=== PATIENT | male | born 1970 | race Caucasian/White ===

== ENCOUNTER 2018-06-08 15:56 | Outpatient (CLI) | payer BC, SELFPAY ==
[2018-06-08 16:30] LABS: COMMENT (LAB VIEW ONLY) 175.08 mg/dL; Microalb ug/mg Crea 6.7 ug/mg Cr
[2018-06-08 17:11] LABS: CREATININE 1.12 mg/dL (0.70-1.30); Potassium 4.1 mmol/L (3.5-5.1); TSH 1.64 uIU/mL (0.358-3.74)
== END 2018-06-08 16:16 ==
PROVIDERS: PCP Internal Medicine; Visit Provider General Practice
DX: E10.9 Type 1 diabetes mellitus without complications (principal); E03.9 Hypothyroidism, unspecified
CPT/HCPCS: 36415; 82043; 82565; 82570; 83036; 84132; 84443

== ENCOUNTER 2019-11-04 01:13 | Outpatient (CLI) | payer BC, SELFPAY ==
[2019-11-04 15:02] LABS: HCT 44.2 % (40.0-50.0); HGB 15.1 g/dL (13.5-17.5); Mean Corp. HGB Concentration 34.2 g/dL (32.0-36.0); Mean Corpuscular Hemoglobin 31.2 pg (27.0-33.0); Mean Corpuscular Volume 91.3 fL (80-95); Mean Platelet Volume 10.2 fL (8.0-11.0); Platelet Count 318 x1000/uL (130-400); RBC 4.84 m/cumm (4.50-6.00); RBC Distribution Width 13.5 % (11.8-14.1); White Blood Cell Count 6.54 k/cumm (4.4-10.8)
[2019-11-04 15:29] LABS: Calculated LDL 159 mg/dL (<100); Cholesterol 217 mg/dL (<200); HDL Cholesterol 49 mg/dL (40-60); TSH 5.07 uIU/mL (0.36-3.74); Triglyceride 48 mg/dL (<150)
== END 2019-11-04 01:33 ==
PROVIDERS: PCP Nurse Practitioner; Visit Provider Nurse Practitioner
DX: E03.9 Hypothyroidism, unspecified (principal); E10.9 Type 1 diabetes mellitus without complications; D72.829 Elevated white blood cell count, unspecified; Z13.6 Encounter for screening for cardiovascular disorders
CPT/HCPCS: 36415; 80061; 85027; 83036; 84443

== ENCOUNTER 2019-12-20 02:09 | Outpatient (CLI) | payer BC, SELFPAY ==
[2019-12-20 14:07] LABS: TSH 0.85 uIU/mL (0.36-3.74)
== END 2019-12-20 02:29 ==
PROVIDERS: PCP Nurse Practitioner; Visit Provider Nurse Practitioner
DX: E03.9 Hypothyroidism, unspecified (principal)
CPT/HCPCS: 36415; 84443

== ENCOUNTER 2020-02-24 13:54 | Outpatient (REF) | payer BC, SELFPAY ==
[2020-02-24 14:49] LABS: Hemoglobin A1C 7.6 % (3.8-5.6)
[2020-02-24 15:38] LABS: Calculated LDL 121 mg/dL (<100); Cholesterol 179 mg/dL (<200); HDL Cholesterol 35 mg/dL (40-60); TSH 2.06 uIU/mL (0.36-3.74); Triglyceride 119 mg/dL (<150)
== END 2020-02-24 14:14 ==
LOC: LBN 13:54
PROVIDERS: PCP Nurse Practitioner; Visit Provider Nurse Practitioner
DX: E03.9 Hypothyroidism, unspecified (principal); E78.5 Hyperlipidemia, unspecified; E10.9 Type 1 diabetes mellitus without complications
CPT/HCPCS: 80061; 83036; 84443

== ENCOUNTER 2020-03-25 08:03 | Inpatient (IN) | payer BC, SELFPAY ==
[2020-03-25] VITALS (89 sets, daily range): BP systolic 112–139; BP diastolic 57–79; PULSE 78–113; RESP 12–21; TEMP 36.2–37.4; O2SAT 95–100
--- NOTE | 2020-03-25 08:15 | DI.CT_ITS ---
EXAM: CT BRAIN CTA CLINICAL HISTORY: headache. TECHNIQUE: Imaging Protocol: Axial CT angiography was performed with multi-slice acquisition and mu lti-planar and/or 3D reconstructions. CONTRAST MATERIAL: Intravenous: Omnipaque 350 Contrast volume:85 mL COMPARISON: CT HEAD WITHOUT CONTRAST from 04/09/2014 FINDINGS: CT Head W/O: Ventricles and Extra axial spaces: Normal in size and morphology for the patient's age. Hemorrhage: None. Cerebral parenchyma: Normal. Midline shift: None. Brainstem/Cerebellum: Normal. Calvarium: Normal. Visualized Paranasal sinuses/Mastoids: There is again seen a mucous retention cyst or polyp in the ri ght in a right ethmoid air cell. There is a small mucous retention cyst or polyp in the right maxill theodore sinus. The remaining visualized paranasal sinuses are clear. Soft Tissues: Unremarkable. CTA Brain W: Internal Carotid Arteries: Petrous: Normal. Cavernous: Normal. Cerebral: Normal. Anterior Cerebral Arteries: Right: No aneurysm, occlusion or significant stenosis. Left: No aneurysm, occlusion or significant stenosis. Middle Cerebral Arteries: Right: No aneurysm, occlusion or significant stenosis. Left: No aneurysm, occlusion or significant stenosis. Posterior cerebral Arteries: Right: No aneurysm, occlusion or significant stenosis. Left: No aneurysm, occlusion or significant stenosis. Vertebral Arteries: Right: No aneurysm, occlusion or significant stenosis. Left: No aneurysm, occlusion or significant stenosis. Basilar Artery: No aneurysm, occlusion or significant stenosis. IMPRESSION: 1. Normal CTA examination of the [place]. 2. No acute intracranial process. RADIATION DOSE DELIVERED: 1,148.64mGy.cm Total DLP DATA REPOSITORY: All CT scans at this facility are submitted to the National Radiology Data Registry (NRDR) Dose Index Registry (DIR) with the [employer] (ACR). RADIATION OPTIMIZATION: All CT scans at this facility use at least one of these dose optimization te chniques: automated exposure control; mA and/or kV adjustment per patient size (includes targeted exa ms where dose is matched to clinical indication); or iterative reconstruction.
--- NOTE | 2020-03-25 08:20 | ED.GENADUL_ITS ---
Discharge Plan Disposition Patient Disposition: [facility] INPATIENT Condition: Critical Discharge Details Clinical Impression: DKA (diabetic ketoacidoses), Nausea & vomiting, Dehydration, Headache Primary Care Provider: Roya Kwong ED Provider: Ronn Xavier Home Meds and New Rx's Prescriptions: No Action atorvastatin 40 mg tablet 40 mg PO DAILY Qty: 90 RF: 3 lisinopril 5 mg tablet 2.5 mg PO DAILY Qty: 90 RF: 3 Lantus Solostar U-100 Insulin 100 unit/mL (3 mL) insulin pen 26 unit SC DAILY Qty: 15 RF: 0 levothyroxine 200 mcg capsule 200 mcg PO DAILY Qty: 60 RF: 0 insulin lispro [Humalog KwikPen Insulin] 100 unit/mL insulin pen 5 unit SC TID Qty: 15 RF: 5 Glucagon Emergency Kit (human) 1 MG kit 1 mg IJ DIRECTED Qty: 1 RF: 0 (DME) urine glucose-ketones test [Keto-Diastix] 1 EACH strip 1 ea Miscellaneous DIRECTED Qty: 50 RF: 0 Medical Decision Making 50 yo male with hx of t1dm, hld, who comes in with n/v and headache since yesterday. Denies any fevers, chills, trauma, chest pain/pressure, dyspnea, and no abdominal pain. He denies recent travel. He could not keep any liquids down this morning or overnight so came here for an evaluation. He arrives appearing dehydrated, perrl, eomi, CN II-XII intact, clear speech with no focal motor or sensation deficits. Soft nontender abdomen, no distention. No meningismus, full rom of the neck. Given his hx of t1dm could be in dka and poc glucose here is over 400, will obtain vbg and urinalysis. He has no findings on history or exam to suggest molder trimmer infection. I suspect his headache could be from dehydration but given he doesn't get headaches frequently will obtain ct and cta to evaluate for ich and aneurysm labs show metabolic acidosis with ph of 7.12, does have a wbc of 22 which could be stress response as he presented similarly in 2014 when he had dka and had a leukocytosis that resolved. K is 6.0 and does have increased creatinine from baseline. Will start insulin drip, no icu beds available here at the moment, nurse carpentry supervisor is trying to establish if one will be available later if not will need to transfer. I did discuss with the pt about risks and benefits of an LP and given he feels much better and headache is all but gone he declines to have an LP which I feel is reasonable given negative ct imaging and no meningismus or infectious symptoms. He has capacity to make his own decisions. Will continue to rehydrate while disposition is established. pt remains hd stable, spoke with Dr. Carter who accepts for admission to the icu Differential Diagnosis Differential Diagnosis: dehydration, dka, aneurysm, ich Medical Records Medical records reviewed: Yes I reviewed the patient's medical records. Imaging Data Radiologic Study: Attestation: I personally reviewed and interpreted this imaging study as follows: Imaging: CT Scan Radiologist's impression: Paranasal sinuses: Right maxillary and right ethmoid cyst versus polyp. Bones/joints: Unremarkable. No acute fracture. Soft tissues: Unremarkable. IMPRESSION: 1. No large vessel stenosis or occlusion. 2. Right maxillary ethmoid sinus findings as above. Lab Data Lab results reviewed: Yes I reviewed the patient's lab results. ECG Data Attestation: I personally reviewed and interpreted this ECG (s) as follows: Prior ECG tracings: not available for review Interpretation: sinus rhythm, rate of 93, pr 165, qtc 448 HPI General Mode of arrival: ambulatory . Date/Time Provider Initiated Documentation: 03/25/20 08:05 . Limitations to Documentation: no limitations . Information obtained by: patient . History of Present Illness 50 year old M presents to the emergency department with the chief complaint of vomit, described as moderate, and it has been intermittent. No relieving factors improve symptom(s), No exacerbating factors reported . Patient did receive the following treatments prior to arrival, none Related Data Home Medications Medication Instructions Recorded Confirmed Glucagon Emergency Kit (human) 1 mg IJ DIRECTED #1 kit 09/16/14 03/25/20 urine glucose-ketones test #50 strip 09/16/14 02/24/20 [Keto-Diastix] atorvastatin 40 mg tablet 40 mg PO DAILY #90 tab 10/22/19 03/25/20 lisinopril 5 mg tablet 2.5 mg PO DAILY #90 tab 10/22/19 03/25/20 insulin glargine 100 unit/mL (3 26 unit SC DAILY #15 ml 10/29/19 03/25/20 mL) subcutaneous pen levothyroxine 200 mcg capsule 200 mcg PO DAILY #60 cap 01/25/20 03/25/20 insulin lispro 100 unit/mL 5 unit SC TID #15 ml 02/15/20 03/25/20 subcutaneous pen Previous Rx's Medication Instructions Recorded Glucagon Emergency Kit (human) 1 mg IJ DIRECTED #1 kit 09/16/14 urine glucose-ketones test #50 strip 09/16/14 [Keto-Diastix] atorvastatin 40 mg tablet 40 mg PO DAILY #90 tab 10/22/19 lisinopril 5 mg tablet 2.5 mg PO DAILY #90 tab 10/22/19 insulin glargine 100 unit/mL (3 26 unit SC DAILY #15 ml 10/29/19 mL) subcutaneous pen levothyroxine 200 mcg capsule 200 mcg PO DAILY #60 cap 01/25/20 insulin lispro 100 unit/mL 5 unit SC TID #15 ml 02/15/20 subcutaneous pen Allergies Allergy/AdvReac Type Severity Reaction Status Date / Time No Known Allergies Allergy Verified 03/25/20 08:15 General Stated Complaint: Nausea/Vomit/Diar ALBAN: 3 Review of Systems All systems reviewed & are unremarkable except as noted in HPI and below Constitutional Constitutional: Denies chills, Denies fever(s) and Denies weakness Cardiovascular Cardiovascular: Denies chest pain and Denies dyspnea Respiratory Respiratory: Denies cough and Denies dyspnea Gastrointestinal Gastrointestinal: Denies abdominal pain Musculoskeletal Musculoskeletal: Denies joint swelling Neurologic Neurologic: Denies weakness [facility] Medical History (Updated 03/25/20 @ 10:01 by Ronn Xavier MD) Diabetic ketoacidosis, type I (09/14/14) HLD (hyperlipidemia) Leukocytosis (09/14/14) Multiple nevi CYNTHIA (obstructive sleep apnea) hasn't been a problem since he lost weight PDR (proliferative diabetic retinopathy) procedure around 1995 for repair Type 1 diabetes Family History (Updated 02/24/20 @ 16:40 by Yoly Mcmullen) Mother Depression Father No problems noted. Sister No problems noted. Son No problems noted. Son No problems noted. Daughter No problems noted. Maternal Grandfather , 80's No problems noted. Paternal Grandfather , 92 No problems noted. Maternal Grandmother , 80's No problems noted. Paternal Grandmother , 60's No problems noted. Social History (Updated 09/13/19 @ 13:38 by Gurvinder Cleaning) Smoking/Tobacco Use Status: Never Alcohol Intake: never Drug use: Never Caregiver/Support person: No Household members: spouse and children Housing: house Communication Needs: None Do you need help understanding health information?: Rarely Pets and animals: Yes Pets and animals: cat(s) Sexually active: Yes Do you think of yourself as: straight/heterosexual Current gender identity: male What is your relationship status?: How often do you talk on the phone with friends or family?: never How often do you get together with friends or relatives?: once per week How often do you attend roman catholic or shinto services?: 4 or more times per year Do you belong to any clubs or organized social groups?: no Panel score (0-1 are the most socially isolated patients): 2 What type of physical activity do you participate in: walking Duration: 15-30 minutes/day Frequency: 1-2 times per week Samia/Methodist: Zoroastrianism Special samia needs: No Seatbelt use: always Drive intox or ride w/intox courtesy bus driver: No Exam Const General: no acute distress Orientation: alert HENMT Head: normal to inspection Ears: external ears normal General nose exam: external nose normal Mouth: other (dry muscous membranes) Eyes General: appearance normal, both eyes and all related structures Neck Neck: normal visual inspection Resp Effort & Inspection: normal respiratory effort and able to speak in complete sentences Cardio Rate: tachycardic Skin General skin exam: no rashes or lesions noted Neuro General: patient alert and patient oriented x3 Extrem General: normal to inspection Psych Mental Status: mental status grossly normal Course Vital Signs Vital signs: Vital Signs Temperature 36.2 C L 03/25/20 08:11 Pulse 113 H 03/25/20 08:11 Respiratory Rate 16 03/25/20 08:11 Blood Pressure 125/78 03/25/20 08:11 Pulse Oximetry 97 03/25/20 08:11 Temperature 36.2 C L 03/25/20 08:11 Temperature Source Skin 03/25/20 08:11 Pulse 113 H 03/25/20 08:11 Respiratory Rate 16 03/25/20 08:11 Respiratory Effort Non-Labored 03/25/20 08:11 Blood Pressure 125/78 03/25/20 08:11 Blood Pressure Position Sitting 03/25/20 08:11 Pulse Oximetry 97 03/25/20 08:11 Pain Level 8 03/25/20 08:11 Critical Care Time Critical Care Time Critical Care Time: Yes Total Critical Care Time: 60 (minutes) Attestation: time spent initiating insulin drip, frequent reassessments, lab review in patient with DKA and potential to deteriorate at any time
[2020-03-25] MEDS: Normal Saline 1,000 ML 1000 ML IV (08:35)
[2020-03-25] MEDS: Ondansetron 4 MG/2 ML VIAL IVP (08:35)
[2020-03-25 08:40] LABS: HCO3 (Venous) 9 mmol/L (23-28); O2 Sat (Venous) 74 %; TCO2 (Venous) 8 mmol/L (24-29); pCO2 (Venous) 28 mmHg (41-51); pO2 (Venous) 43 mmHg
[2020-03-25] MEDS: Normal Saline Flush 10 ML SYR IVP ×2 (08:40→08:54)
[2020-03-25 08:41] LABS: Abs Immature Grans 0.13 10^3/uL (0.0-0.06); Absolute Lymphocyte Count 1.16 10^3/uL (1.2-3.4); Basophils % 0.2; HCT 51.1 % (40.0-50.0); HGB 16.8 g/dL (13.5-17.5); Immature Grans % 0.6; Lymphocytes % 5.1; MCH 30.2 pg (27.0-33.0); MCHC 32.9 % (32.0-36.0); MCV 91.9 fL (80-95); Monocytes % 5.8; Neutrophils % 88.3; Nucleated RBC 0 %; Platelet Count 390 10^3/uL (130-400); RBC 5.56 10^6/uL (4.36-5.78); RDW 13.1 % (11.8-14.1); RDW-SD 44.9 fL; WBC 22.72 10^3/uL (4.4-10.8)
[2020-03-25 08:44] LABS: Lactate 2.1 mmol/L (0.6-1.4); pH (Venous) 7.12 (7.31-7.41)
[2020-03-25 08:45] LABS: Absolute Basophil Count 0.05 10^3/uL (0.0-0.2); Absolute Monocyte Count 1.32 10^3/uL (0.1-0.8); Absolute Neutrophil Count 20.06 10^3/uL (1.2-6.7)
[2020-03-25] MEDS: Omnipaque 350 MG/ML 100 ML BTL IJ (08:52)
[2020-03-25] MEDS: Normal Saline - Diluent 50 ML VIAL IV (08:54)
[2020-03-25 09:09] LABS: Diff Comment Diff Reviewed; RBC Morphology Normal
--- NOTE | 2020-03-25 09:15 | RT.EKG_ITS ---
APPROVED REPORT Exam: Resting ECG Patient Location: E HR:93 bpm ECG Measurements Heart Rate 93 AXIS OR 165 P 41 QRSd 99 QRS -12 QT 361 T 28 QTc 448 Conclusion Sinus rhythm...normal P axis, V-rate 60- 99
[2020-03-25 09:19] LABS: ALT 33 U/L (16-63); AST 15 U/L (15-37); Albumin 4.3 g/dL (3.4-5.0); Alkaline Phosphatase 75 U/L (46-116); Anion Gap 24.7 mmol/L (3-11); BUN 33 mg/dL (7-18); Bilirubin, Total 0.7 mg/dL (0.2-1.0); CO2 11.3 mmol/L (21.0-32.0); CREATININE 2.13 mg/dL (0.70-1.30); Calcium 10.1 mg/dL (8.5-10.1); Chloride 97 mmol/L (98-107); Estimated GFR 33.05 (mL/min/1.73m2); Glucose 427 mg/dL (74-106); Lipase 230 U/L (73-393); Magnesium 2.4 mg/dL (1.8-2.4); Sodium 133 mmol/L (136-145); TSH (W/Ref FT4) 0.79 uIU/mL (0.36-3.74); Total Protein 8.5 g/dL (6.4-8.2)
--- NOTE | 2020-03-25 09:21 | DI.VRAD_ITS ---
PROCEDURE INFORMATION: Exam: CT Angiography Head With Contrast Exam date and time: 03/25/2020 8:20 AM Age: 50 years old Clinical indication: Other: Headache TECHNIQUE: Imaging protocol: Computed tomography angiography of the head with intravenous contrast. 3D rendering (Not supervised by radiologist): MIP and/or 3D reconstructed images were created by the technologist. Contrast material: OMNI 350; Contrast volume: 85 ml; Contrast route: INTRAVENOUS (IV); COMPARISON: CT HEAD WITHOUT CONTRAST 04/09/2014 1:58 AM FINDINGS: ANTERIOR CIRCULATION: Right internal carotid artery: Unremarkable. Intracranial segment is patent with no significant stenosis. No aneurysm. Right middle cerebral artery: Unremarkable. No occlusion or significant stenosis. No aneurysm. Right anterior cerebral artery: Unremarkable. No occlusion or significant stenosis. No aneurysm. Left internal carotid artery: Unremarkable. Intracranial segment is patent with no significant stenosis. No aneurysm. Left middle cerebral artery: Unremarkable. No occlusion or significant stenosis. No aneurysm. Left anterior cerebral artery: Unremarkable. No occlusion or significant stenosis. No aneurysm. POSTERIOR CIRCULATION: Right vertebral artery: Unremarkable. No occlusion or significant stenosis. No aneurysm. Left vertebral artery: Unremarkable. No occlusion or significant stenosis. No aneurysm. Basilar artery: Unremarkable. No occlusion or significant stenosis. No aneurysm. Right posterior cerebral artery: Unremarkable. No occlusion or significant stenosis. No aneurysm. Left posterior cerebral artery: Unremarkable. No occlusion or significant stenosis. No aneurysm. Brain: No definite mass, mass effect, or midline shift. Cerebral ventricles: Normal. No ventriculomegaly. Paranasal sinuses: Right maxillary and right ethmoid cyst versus polyp. Bones/joints: Unremarkable. No acute fracture. Soft tissues: Unremarkable. IMPRESSION: 1. No large vessel stenosis or occlusion. 2. Right maxillary ethmoid sinus findings as above. Dictated and Authenticated by: Richmond England MD. Ordering:BRAD Brody MD
[2020-03-25 09:37] LABS: Bilirubin Small (Negative); Blood Trace-lysed (Negative); Clarity Clear (Clear); Glucose 500 mg/dL (Negative); Ketones >=160 mg/dL (Negative); Leukocyte Esterase Negative (Negative); Nitrite Negative (Negative); Specific Gravity >= 1.030 (1.005-1.025); Urobilinogen 0.2 EU/dL (Up TO 0.2); pH 5.5 (5-8)
[2020-03-25 10:08] LABS: Bacteria Negative HPF (Negative); C & S Indicated? No; Casts Negative LPF (Negative); Crystals Negative HPF (Negative); Epithelial Cells Rare HPF (Negative); Mucus Trace (Negative); RBC 0-2 HPF (0-2); WBC 0-2 HPF (0-5)
[2020-03-25] MEDS: INSULIN REGULAR IN 0.9 % NACL 100 UNIT/100 ML BAG IV (10:26)
[2020-03-25] MEDS: Normal Saline 1,000 ML 150 ML IV ×3 (10:26→19:56)
[2020-03-25 13:02] LABS: HCO3 (Venous) 13 mmol/L (23-28); O2 Sat (Venous) 88 %; TCO2 (Venous) 12 mmol/L (24-29); pCO2 (Venous) 34 mmHg (41-51); pO2 (Venous) 56 mmHg
[2020-03-25 13:04] LABS: pH (Venous) 7.19 (7.31-7.41)
[2020-03-25 13:15] LABS: Anion Gap 17.4 mmol/L (3-11); BUN 29 mg/dL (7-18); CO2 14.6 mmol/L (21.0-32.0); CREATININE 1.72 mg/dL (0.70-1.30); Calcium 9.1 mg/dL (8.5-10.1); Chloride 104 mmol/L (98-107); Glucose 268 mg/dL (74-106); Potassium 5.5 mmol/L (3.5-5.1); Sodium 136 mmol/L (136-145)
--- NOTE | 2020-03-25 15:20 | HPE_ITS ---
Date of service: 03/25/20 Time of Service: 15:20 Assessment and Plan Assessment and plan (1) DKA (diabetic ketoacidoses): Status: Acute Assessment and plan: Responding well to insulin drip. Gluose down to 202 at time of my evaluation. Changed fluids to D51/2NS with 20meq of K+ K+ down to 5.5. Monitor. Cont insulin drip protocol. Clear liquid diabetic diet; advance as tolerated. No source of any infectious etiology noted. (2) Hypothyroidism: Status: Chronic Assessment and plan: TSH 0.79. Cont home replacement tx. Qualifiers: Hypothyroidism type: acquired Qualified Code(s): E03.9 - Hypothyroidism, unspecified History of Present Illness History of Present Illness Chief Complaint: Nausea, vomiting, headache Narrative: This is a 50 yo male with a h/o DM1 dxd at the age of 8. He has had one episode of DKA in the past; 5 years ago. He also has a h/o HLD, proliferative diabetic retinopathy. Previous CYNTHIA that resolved with wt loss. He developed a PARDO, N/V on the day prior to admission. No F/C, cough, SOA, dysuria/frequency, lesions, diarrhea. He has not been able to keep liquids down. In the ED he was acidotic with a venous pH of 7.12. WBC count was elevated at 22. K+ of 6.0. Creatinine of 2.13 > 1.72 (after fluid bolus). Insulin drip initiated. Review of Systems All systems reviewed & are unremarkable except as noted in HPI and below PFSH Medical History Diabetic ketoacidosis, type I (09/14/14) HLD (hyperlipidemia) Leukocytosis (09/14/14) Multiple nevi CYNTHIA (obstructive sleep apnea) hasn't been a problem since he lost weight PDR (proliferative diabetic retinopathy) procedure around 1995 for repair Type 1 diabetes Family History Mother Depression Father No problems noted. Sister No problems noted. Son No problems noted. Son No problems noted. Daughter No problems noted. Maternal Grandfather , 80's No problems noted. Paternal Grandfather , 92 No problems noted. Maternal Grandmother , 80's No problems noted. Paternal Grandmother , 60's No problems noted. Social History Smoking/Tobacco Use Status: Never Alcohol Intake: never Drug use: Never Caregiver/Support person: No Household members: spouse and children Housing: house Communication Needs: None Do you need help understanding health information?: Rarely Pets and animals: Yes Pets and animals: cat(s) Sexually active: Yes Do you think of yourself as: straight/heterosexual Current gender identity: male What is your relationship status?: How often do you talk on the phone with friends or family?: never How often do you get together with friends or relatives?: once per week How often do you attend moravian or mandaeism services?: 4 or more times per year Do you belong to any clubs or organized social groups?: no Panel score (0-1 are the most socially isolated patients): 2 What type of physical activity do you participate in: walking Duration: 15-30 minutes/day Frequency: 1-2 times per week Samia/Worship: Protestant Special samia needs: No Seatbelt use: always Drive intox or ride w/intox rolloff driver: No Meds Home Medications and Allergies Home Medications Medication Instructions Recorded Confirmed Type Glucagon Emergency Kit (human) 1 mg IJ DIRECTED #1 kit 09/16/14 03/25/20 Rx urine glucose-ketones test #50 strip 09/16/14 02/24/20 Rx [Keto-Diastix] atorvastatin 40 mg tablet 40 mg PO DAILY #90 tab 10/22/19 03/25/20 Rx lisinopril 5 mg tablet 2.5 mg PO DAILY #90 tab 10/22/19 03/25/20 Rx insulin glargine 100 unit/mL (3 26 unit SC DAILY #15 ml 10/29/19 03/25/20 Rx mL) subcutaneous pen insulin lispro 100 unit/mL 5 unit SC TID #15 ml 02/15/20 03/25/20 Rx subcutaneous pen levothyroxine 200 mcg PO DAILY 03/25/20 03/25/20 History Allergies Allergy/AdvReac Type Severity Reaction Status Date / Time No Known Allergies Allergy Verified 03/25/20 08:15 Exam Const General: cooperative and no acute distress Nutritional Appearance: overweight Eyes Sclera: sclerae normal Pupils: PERRL Resp Effort & Inspection: normal respiratory effort Auscultation: clear to auscultation bilaterally Cardio Rate: regular rate Rhythm: regular rhythm Heart Sounds: S1 normal and S2 normal GI Inspection: normal to inspection Palpation: soft Percussion: normal to percussion Auscultation: normal bowel sounds Neuro General: patient alert and patient oriented x3 Speech: speech normal Extrem General: no clubbing, cyanosis or edema Psych Appearance: grossly normal Speech and Movement: speech and movement normal Mood: congruent mood Affect: normal affect Attitude: cooperative Thought Content: normal Insight: insight good Judgment: judgment good Results Labs Result diagrams: 03/25/20 08:35 03/25/20 12:58 Labs: Laboratory Results - last 24 hr 03/25/20 03/25/20 03/25/20 08:35 08:35 08:35 WBC 22.72 H RBC 5.56 Hgb 16.8 Hct 51.1 H MCV 91.9 MCH 30.2 MCHC 32.9 RDW 13.1 Plt Count 390 MPV 10.0 Immature Gran % 0.6 Neutrophils % 88.3 Lymphocytes % 5.1 Monocytes % 5.8 Eosinophils % 0.0 Basophils % 0.2 Nucleated RBC % 0 Absolute Neutrophils 20.06 H Absolute Lymphocytes 1.16 L Absolute Monocytes 1.32 H Absolute Eosinophils 0.00 Absolute Basophils 0.05 RBC Morphology Normal VBG pH VBG pCO2 VBG pO2 VBG HCO3 VBG Total CO2 VBG O2 Saturation VBG Base Excess VBG Lactate 2.1 H* Sodium 133 L Potassium 6.0 H* Chloride 97 L Carbon Dioxide 11.3 L Anion Gap 24.7 H BUN 33 H Creatinine 2.13 H Estimated GFR/1.73 m2 33.05 Glucose 427 H Calcium 10.1 Magnesium 2.4 Total Bilirubin 0.7 AST 15 ALT 33 Alkaline Phosphatase 75 Total Protein 8.5 H Albumin 4.3 Lipase 230 TSH 0.79 Urine Color Urine Clarity Urine pH Ur Specific [place] Urine Protein Urine Ketones Urine Blood Urine Nitrite Urine Bilirubin Urine Urobilinogen Ur Leukocyte Esterase Urine RBC Urine WBC Ur Epithelial Cells Urine Crystals Urine Bacteria Urine Casts Urine Mucus Ur Culture Indicated? Urine Glucose 03/25/20 03/25/20 03/25/20 08:35 09:27 12:48 WBC RBC Hgb Hct MCV MCH MCHC RDW Plt Count MPV Immature Gran % Neutrophils % Lymphocytes % Monocytes % Eosinophils % Basophils % Nucleated RBC % Absolute Neutrophils Absolute Lymphocytes Absolute Monocytes Absolute Eosinophils Absolute Basophils RBC Morphology VBG pH 7.12 L* VBG pCO2 28 L VBG pO2 43 VBG HCO3 9 L VBG Total CO2 8 L VBG O2 Saturation 74 VBG Base Excess < -15 L VBG Lactate Sodium Cancelled Potassium Cancelled Chloride Cancelled Carbon Dioxide Cancelled Anion Gap Cancelled BUN Cancelled Creatinine Cancelled Estimated GFR/1.73 m2 Cancelled Glucose Cancelled Calcium Cancelled Magnesium Total Bilirubin AST ALT Alkaline Phosphatase Total Protein Albumin Lipase TSH Urine Color Yellow Urine Clarity Clear Urine pH 5.5 Ur Specific [place] >= 1.030 H Urine Protein 30 H Urine Ketones >=160 H Urine Blood Trace-lysed H Urine Nitrite Negative Urine Bilirubin Small H Urine Urobilinogen 0.2 Ur Leukocyte Esterase Negative Urine RBC 0-2 Urine WBC 0-2 Ur Epithelial Cells Rare Urine Crystals Negative Urine Bacteria Negative Urine Casts Negative Urine Mucus Trace Ur Culture Indicated? No Urine Glucose 500 H 03/25/20 03/25/20 12:58 12:58 WBC RBC Hgb Hct MCV MCH MCHC RDW Plt Count MPV Immature Gran % Neutrophils % Lymphocytes % Monocytes % Eosinophils % Basophils % Nucleated RBC % Absolute Neutrophils Absolute Lymphocytes Absolute Monocytes Absolute Eosinophils Absolute Basophils RBC Morphology VBG pH 7.19 L* VBG pCO2 34 L VBG pO2 56 VBG HCO3 13 L VBG Total CO2 12 L VBG O2 Saturation 88 VBG Base Excess < -15 L VBG Lactate Sodium 136 Potassium 5.5 H Chloride 104 Carbon Dioxide 14.6 L Anion Gap 17.4 H BUN 29 H Creatinine 1.72 H Estimated GFR/1.73 m2 42.30 Glucose 268 H D Calcium 9.1 Magnesium Total Bilirubin AST ALT Alkaline Phosphatase Total Protein Albumin Lipase TSH Urine Color Urine Clarity Urine pH Ur Specific [place] Urine Protein Urine Ketones Urine Blood Urine Nitrite Urine Bilirubin Urine Urobilinogen Ur Leukocyte Esterase Urine RBC Urine WBC Ur Epithelial Cells Urine Crystals Urine Bacteria Urine Casts Urine Mucus Ur Culture Indicated? Urine Glucose Last Vital Signs Temp 36.2 C L 03/25/20 14:00 Pulse 94 H 03/25/20 14:00 Resp 16 03/25/20 14:00 BP 126/65 03/25/20 14:00 Pulse Ox 97 03/25/20 14:00 COVID-19 Screening Have you,or household,traveled outside [place] in last 14 days?: No Had IN PERSON contact w/suspected or confirmed C-19 person: No
[2020-03-25] MEDS: POTASSIUM CHLORIDE/D5-0.45NACL 1,000 ML 125 MEQ IV (15:41)
[2020-03-25 17:49] LABS: BUN 26 mg/dL (7-18); CREATININE 1.73 mg/dL (0.70-1.30); Calcium 9.3 mg/dL (8.5-10.1); Chloride 103 mmol/L (98-107); Estimated GFR 42.02 (mL/min/1.73m2); Glucose 227 mg/dL (74-106); Potassium 5.1 mmol/L (3.5-5.1); Sodium 138 mmol/L (136-145)
[2020-03-25 20:51] LABS: BE (Venous) -8 mmol/L (-2-3); HCO3 (Venous) 19 mmol/L (23-28); O2 Sat (Venous) 69 %; TCO2 (Venous) 17 mmol/L (24-29); pCO2 (Venous) 40 mmHg (41-51); pH (Venous) 7.29 (7.31-7.41); pO2 (Venous) 36 mmHg
[2020-03-25 21:01] LABS: Anion Gap 11.3 mmol/L (3-11); BUN 23 mg/dL (7-18); CO2 20.7 mmol/L (21.0-32.0); CREATININE 1.64 mg/dL (0.70-1.30); Calcium 9.1 mg/dL (8.5-10.1); Chloride 105 mmol/L (98-107); Estimated GFR 44.69 (mL/min/1.73m2); Glucose 254 mg/dL (74-106); Potassium 4.4 mmol/L (3.5-5.1); Sodium 137 mmol/L (136-145)
[2020-03-25] MEDS: DEXTROSE 5%-0.9% SALINE 1,000 ML 150 ML IV (21:23)
[2020-03-25] MEDS: Insulin Glargine 300 UNITS/3 ML PEN 15 UNITS SC (21:24)
[2020-03-26] VITALS (37 sets, daily range): BP systolic 107–146; BP diastolic 58–70; PULSE 64–89; RESP 10–19; TEMP 36.7–37.1; O2SAT 93–98
[2020-03-26] MEDS: Normal Saline 1,000 ML 150 ML IV ×4 (00:34→18:01)
[2020-03-26 01:19] LABS: BE (Venous) -6 mmol/L (-2-3); HCO3 (Venous) 20 mmol/L (23-28); O2 Sat (Venous) 91 %; TCO2 (Venous) 18 mmol/L (24-29); pCO2 (Venous) 38 mmHg (41-51); pH (Venous) 7.33 (7.31-7.41); pO2 (Venous) 59 mmHg
[2020-03-26 01:30] LABS: Anion Gap 10.2 mmol/L (3-11); BUN 20 mg/dL (7-18); CO2 21.8 mmol/L (21.0-32.0); CREATININE 1.49 mg/dL (0.70-1.30); Chloride 108 mmol/L (98-107); Estimated GFR 49.92 (mL/min/1.73m2); Glucose 172 mg/dL (74-106); Magnesium 2.3 mg/dL (1.8-2.4); Potassium 3.7 mmol/L (3.5-5.1); Sodium 140 mmol/L (136-145)
[2020-03-26] MEDS: Levothyroxine 200 MCG TAB PO (06:37)
[2020-03-26 06:56] LABS: Anion Gap 11.6 mmol/L (3-11); BUN 18 mg/dL (7-18); CO2 19.4 mmol/L (21.0-32.0); CREATININE 1.35 mg/dL (0.70-1.30); Calcium 8.9 mg/dL (8.5-10.1); Chloride 109 mmol/L (98-107); Estimated GFR 55.94 (mL/min/1.73m2); Glucose 178 mg/dL (74-106); Magnesium 2.2 mg/dL (1.8-2.4); Potassium 4.3 mmol/L (3.5-5.1); Sodium 140 mmol/L (136-145)
[2020-03-26 07:07] LABS: BE (Venous) -6 mmol/L (-2-3); HCO3 (Venous) 20 mmol/L (23-28); O2 Sat (Venous) 92 %; TCO2 (Venous) 18 mmol/L (24-29); pCO2 (Venous) 37 mmHg (41-51); pH (Venous) 7.34 (7.31-7.41); pO2 (Venous) 60 mmHg
[2020-03-26] MEDS: Atorvastatin 40 MG TAB PO (08:34)
[2020-03-26] MEDS: Insulin Aspart 300 UNITS/3 ML PEN SC ×6 (08:53→22:03)
[2020-03-26] MEDS: Normal Saline Flush 10 ML SYR IVP (10:20)
[2020-03-26] MEDS: Ketorolac 30 MG/ML VIAL IVP (10:20)
[2020-03-26 11:47] LABS: COVID-19 RT-PCR UVMMC Result Negative (Negative)
--- NOTE | 2020-03-26 11:58 | PDOC.CMIN ---
- If Service Date Differs Date of service: 03/26/20 Time of Service: 11:58 Care Management Initial Assess REASON FOR HOSPITALIZATION:: DKA PAST MEDICAL HISTORY/PAST SURGICAL HISTORY:: Medical History . Diabetic ketoacidosis, type I (09/14/14). HLD (hyperlipidemia). Leukocytosis (09/14/14). Multiple nevi. CYNTHIA (obstructive sleep apnea). hasn't been a problem since he lost weight. PDR (proliferative diabetic retinopathy). procedure around 1995 for repair. Type 1 diabetes PREVIOUS FUNCTIONAL STATUS/SOCIAL/FAMILY SUPPORTS:: Bjorn lives in [place] with his , Nan. He has three children, who are all fairly local. He is currently unemployed due to Covid 19. He is independent at baseline. CURRENT FUNCTIONAL STATUS:: Bjorn was sitting up in bed when CM met with him. He stated that he was feeling better, and was hoping to be discharged soon, maybe tomorrow. Per report, he may be ready for discharge tomorrow if he continues to improve. CM will continue to follow. ADVANCE DIRECTIVES:: None on file. Has patient been provided with info about the portal/API?: Yes Did the patient sign up for the portal?: Yes (previously) CODE STATUS:: Full Code INSURANCE COVERAGE / FINANCIAL ISSUES:: [employer]BS CURRENT HOME/COMMUNITY SERVICES/EQUIPMENT:: No current services or equipment. PRIMARY CARE PHYSICIAN:: Nikia Angeles POTENTIAL DISCHARGE NEEDS:: Evaluations for further needs, follow up appointments. PATIENT/FAMILY EDUCATION NEEDS:: Review discharge instructions regarding activity levels and medications, discussion of self care needs. ANTICIPATED BARRIERS TO DISCHARGE:: None identified at this time. TRANSPORTATION:: Via private vehicle by family. PLAN:: Anticipate Bjorn will return home with no additional services once medically cleared. He will be driven home via private vehicle by family. He will follow up with his PCP and discharge plan of care. CM will continue to follow.
[2020-03-26 12:44] LABS: Abs Immature Grans 0.03 10^3/uL (0.0-0.06); Absolute Eosinophil Count 0.06 10^3/uL (0.0-0.7); Absolute Lymphocyte Count 1.37 10^3/uL (1.2-3.4); Absolute Monocyte Count 0.74 10^3/uL (0.1-0.8); Basophils % 0.3; Eosinophils % 0.5; HGB 14.8 g/dL (13.5-17.5); Immature Grans % 0.3; Lymphocytes % 11.6; MCH 30.6 pg (27.0-33.0); MCHC 33.6 % (32.0-36.0); MCV 91.1 fL (80-95); Monocytes % 6.3; Nucleated RBC 0 %; Platelet Count 297 10^3/uL (130-400); RBC 4.83 10^6/uL (4.36-5.78); RDW 13.7 % (11.8-14.1); RDW-SD 46.4 fL; WBC 11.82 10^3/uL (4.4-10.8)
[2020-03-26 12:46] LABS: Absolute Basophil Count 0.04 10^3/uL (0.0-0.2); Absolute Neutrophil Count 9.57 10^3/uL (1.2-6.7)
--- NOTE | 2020-03-26 14:41 | PGE_ITS ---
Date of Service Date of service: 03/26/20 Time of Service: 14:41 Assessment and Plan Assessment and plan (1) DKA (diabetic ketoacidoses): Status: Acute Assessment and plan: Anion gap closed and VBG pH normalized last PM Insulin drip stopped. Given 1/2 dose of his basal insulin last PM; will increase to home dose tonight Home AC insulin dosing; carb counting Monitoring. K+ normalized. No infectious source has been noted that could have been the etiology of his DKA. WBC count near normal now. (2) Type 1 diabetes: Status: Acute Assessment and plan: A1c of 7.6 on 02/24/2020. Restarted home insulin regimen. Qualifiers: Diabetes mellitus complication status: with ophthalmic complications Diabetes mellitus complication detail: with diabetic retinopathy Diabetic retinopathy severity: with unspecified retinopathy severity Diabetes mellitus macular edema: without macular edema Laterality: unspecified laterality Qualified Code(s): E10.319 - Type 1 diabetes mellitus with unspecified diabetic retinopathy without macular edema Subjective Subjective Interval history since last seen: C/O PARDO. Tolerating clear liquids. No F/C, cough, dysuria/frequency. No diarrhea. Exam Const General: cooperative, no acute distress and other (appears tired) Nutritional Appearance: overweight Orientation: alert and oriented x3 Resp Effort & Inspection: normal respiratory effort Auscultation: clear to auscultation bilaterally Cardio Rate: regular rate Rhythm: regular rhythm Heart Sounds: S1 normal and S2 normal GI Palpation: soft and nontender Auscultation: normal bowel sounds Extrem General: no clubbing, cyanosis or edema Objective Last Vital Signs Temp 36.9 C 03/26/20 12:30 Pulse 83 03/26/20 13:07 Resp 16 03/26/20 13:07 BP 125/66 03/26/20 13:07 Pulse Ox 93 03/26/20 12:30 Laboratory Results - last 24 hr 03/25/20 03/25/20 03/25/20 10:40 17:20 20:45 WBC RBC Hgb Hct MCV MCH MCHC RDW Plt Count MPV Immature Gran % Neutrophils % Lymphocytes % Monocytes % Eosinophils % Basophils % Nucleated RBC % Absolute Neutrophils Absolute Lymphocytes Absolute Monocytes Absolute Eosinophils Absolute Basophils VBG pH 7.29 L VBG pCO2 40 L VBG pO2 36 VBG HCO3 19 L VBG Total CO2 17 L VBG O2 Saturation 69 VBG Base Excess -8 L Sodium 138 Potassium 5.1 Chloride 103 Carbon Dioxide 19.0 L Anion Gap 16.0 H BUN 26 H Creatinine 1.73 H Estimated GFR/1.73 m2 42.02 Glucose 227 H Calcium 9.3 Magnesium COVID-19 PCR Negative Nasopharyn COVID-19 PCR Not Applicable Ref Test [facility]25/20 03/25/20 03/26/20 20:45 21:00 01:01 WBC RBC Hgb Hct MCV MCH MCHC RDW Plt Count MPV Immature Gran % Neutrophils % Lymphocytes % Monocytes % Eosinophils % Basophils % Nucleated RBC % Absolute Neutrophils Absolute Lymphocytes Absolute Monocytes Absolute Eosinophils Absolute Basophils VBG pH Cancelled VBG pCO2 Cancelled VBG pO2 Cancelled VBG HCO3 Cancelled VBG Total CO2 Cancelled VBG O2 Saturation Cancelled VBG Base Excess Cancelled Sodium 137 140 Potassium 4.4 3.7 Chloride 105 108 H Carbon Dioxide 20.7 L 21.8 Anion Gap 11.3 H 10.2 BUN 23 H 20 H Creatinine 1.64 H 1.49 H Estimated GFR/1.73 m2 44.69 49.92 Glucose 254 H 172 H D Calcium 9.1 9.0 Magnesium 2.3 COVID-19 PCR Nasopharyn COVID-19 PCR Ref Test Perform Site 03/26/20 03/26/20 03/26/20 01:01 06:18 06:18 WBC RBC Hgb Hct MCV MCH MCHC RDW Plt Count MPV Immature Gran % Neutrophils % Lymphocytes % Monocytes % Eosinophils % Basophils % Nucleated RBC % Absolute Neutrophils Absolute Lymphocytes Absolute Monocytes Absolute Eosinophils Absolute Basophils VBG pH 7.33 7.34 VBG pCO2 38 L 37 L VBG pO2 59 60 VBG HCO3 20 L 20 L VBG Total CO2 18 L 18 L VBG O2 Saturation 91 92 VBG Base Excess -6 L -6 L Sodium 140 Potassium 4.3 Chloride 109 H Carbon Dioxide 19.4 L Anion Gap 11.6 H BUN 18 Creatinine 1.35 H Estimated GFR/1.73 m2 55.94 Glucose 178 H Calcium 8.9 Magnesium 2.2 COVID-19 PCR Nasopharyn COVID-19 PCR Ref Test Perform Site 03/26/20 12:32 WBC 11.82 H D RBC 4.83 Hgb 14.8 Hct 44.0 MCV 91.1 MCH 30.6 MCHC 33.6 RDW 13.7 Plt Count 297 MPV 10.0 Immature Gran % 0.3 Neutrophils % 81.0 Lymphocytes % 11.6 Monocytes % 6.3 Eosinophils % 0.5 Basophils % 0.3 Nucleated RBC % 0 Absolute Neutrophils 9.57 H Absolute Lymphocytes 1.37 Absolute Monocytes 0.74 Absolute Eosinophils 0.06 Absolute Basophils 0.04 VBG pH VBG pCO2 VBG pO2 VBG HCO3 VBG Total CO2 VBG O2 Saturation VBG Base Excess Sodium Potassium Chloride Carbon Dioxide Anion Gap BUN Creatinine Estimated GFR/1.73 m2 Glucose Calcium Magnesium COVID-19 PCR Nasopharyn COVID-19 PCR Ref Test Perform Site
[2020-03-26 17:55] LABS: BE (Venous) -4 mmol/L (-2-3); HCO3 (Venous) 22 mmol/L (23-28); O2 Sat (Venous) 71 %; TCO2 (Venous) 20 mmol/L (24-29); pCO2 (Venous) 41 mmHg (41-51); pH (Venous) 7.34 (7.31-7.41); pO2 (Venous) 37 mmHg
[2020-03-26] MEDS: Insulin Glargine 300 UNITS/3 ML PEN 26 UNITS SC (23:14)
[2020-03-27] VITALS: PULSE 73; RESP 14
[2020-03-27 00:01] VITALS: BP 140/70; PULSE 70; PULSE 71; RESP 14
[2020-03-27 00:02] VITALS: PULSE 72; RESP 13
[2020-03-27] MEDS: Normal Saline 1,000 ML 150 ML IV (00:30)
[2020-03-27 00:49] VITALS: BP 140/70; PULSE 75; RESP 17; TEMP 37.5; O2SAT 93
[2020-03-27 04:55] VITALS: BP 112/60; PULSE 76; RESP 17; TEMP 36.8; O2SAT 96
[2020-03-27] MEDS: Levothyroxine 200 MCG TAB PO (05:47)
--- NOTE | 2020-03-27 06:45 | W.PM.DS.N ---
Date of service: 03/27/20 Time of Service: 06:45 DS: Diagnosis Discharge Diagnosis (1) DKA (diabetic ketoacidoses): Status: Acute (2) Type 1 diabetes: Status: Acute Discharge Plan Disposition Patient Disposition: HOME Condition: Good Discharge Details Reason For Visit: DKA Admit Date/Time: 03/25/20 10:52 Admit Provider: Kle Carter Attending Provider: Kel Carter Primary Care Provider: Roya Kwong [facility] Course Hospital Course: This is a 50 yo male with a h/o DM1 dxd at the age of 8. He has had one episode of DKA in the past; 5 years ago. He also has a h/o HLD, proliferative diabetic retinopathy. Previous CYNTHIA that resolved with wt loss. He developed a PARDO, N/V on the day prior to admission. No F/C, cough, SOA, dysuria/frequency, lesions, diarrhea. He has not been able to keep liquids down. In the ED he was acidotic with a venous pH of 7.12. WBC count was elevated at 22. K+ of 6.0. Creatinine of 2.13 > 1.72 (after fluid bolus). Insulin drip initiated. His anion Gap normalized and his blood glucose levels improved. Basal / bolus insulin restarted with patient resuming carbohydrate counting. He tolerated his diabetic diet prior to discharge. He will follow up with his PCP in 1-2 weeks. Home Meds and New Rx's Prescriptions: New levothyroxine 200 mcg Tablet 200 mcg PO DAILY@0600 Qty: 0 RF: 0 Continued atorvastatin 40 mg tablet 40 mg PO DAILY Qty: 90 RF: 3 lisinopril 5 mg tablet 2.5 mg PO DAILY Qty: 90 RF: 3 Lantus Solostar U-100 Insulin 100 unit/mL (3 mL) insulin pen 26 unit SC DAILY Qty: 15 RF: 0 insulin lispro [Humalog KwikPen Insulin] 100 unit/mL insulin pen 5 unit SC TID Qty: 15 RF: 5 Glucagon Emergency Kit (human) 1 MG kit 1 mg IJ DIRECTED Qty: 1 RF: 0 (DME) urine glucose-ketones test [Keto-Diastix] 1 EACH strip 1 ea Miscellaneous DIRECTED Qty: 50 RF: 0 levothyroxine 200 mcg tablet 200 mcg PO DAILY RF: 0 Discharge Instructions Instructions: Diabetic Ketoacidosis (GEN) Activity:: Activity as Tolerated Equipment/Supplies:: No Equipment Needed Diet:: Carb Counting Discharge Orders Discharge Orders: Discharge Order (Routine); Ordered 03/27/20 Ordered By: Kel Carter Discharge Data Discharge Date/Time-TO BE ENTERED AT DEPARTURE: 03/27/20 10:45 DS: Summary Status at Discharge Functional status at discharge: independent ambulation Overall status at discharge: patient is progressing back to baseline Mental Status: mental status grossly normal Speech and Movement: speech and movement normal Mood: congruent mood Affect: normal affect Exam Const General: cooperative, comfortable and no acute distress Nutritional Appearance: overweight Resp Effort & Inspection: normal respiratory effort Auscultation: clear to auscultation bilaterally Cardio Rate: regular rate Rhythm: regular rhythm Heart Sounds: S1 normal and S2 normal GI Palpation: soft and nontender Neuro General: patient alert, patient oriented x3 and moves all extremities Cognition: normal cognition Extrem General: no clubbing, cyanosis or edema Psych Mental Status: mental status grossly normal Speech and Movement: speech and movement normal Mood: congruent mood Affect: normal affect DS: Data Vitals/I&O Vitals and I&O: Vital Signs Temperature 36.8 C 03/27/20 04:55 Temperature Source Temporal Artery Scan 03/27/20 04:55 Pulse 76 03/27/20 04:55 Pulse Rhythm Regular 03/27/20 00:52 Pulse 72 03/27/20 00:02 Respiratory Rate 17 03/27/20 04:55 Respiratory Effort 03/27/20 04:55 Respiratory Depth Normal 03/27/20 04:55 Respiratory Pattern Normal 03/27/20 04:55 Blood Pressure 112/60 03/27/20 04:55 Blood Pressure Mean 77 03/27/20 04:55 Blood Pressure Position Supine 03/27/20 04:55 Pulse Oximetry 96 03/27/20 04:55 Oxygen Delivery Method Room Air 03/27/20 04:55 Oxygen Flow Rate 0 03/27/20 04:55 Pain Level 0 03/27/20 04:55 Intake & Output 03/26/20 03/26/20 03/27/20 11:59 23:59 11:59 Intake Total 2937.5 / 4572.5 1635 / 4572.5 1212.5 / 1212.5 Output Total 550 / 1600 1050 / 1600 Balance 2387.5 / 2972.5 585 / 2972.5 1212.5 / 1212.5 Weight 102.5 kg Intake: IV 2697.5 / 3612.5 915 / 3612.5 972.5 / 972.5 Oral 240 / 960 720 / 960 240 / 240 Output: Urine 550 / 1600 1050 / 1600 Other: Urine Color Straw Light Tracey Urine Appearance Clear Clear Clear Urine Odor Normal None Voiding Methods Urinal Urinal Data Completed and Pending Labs on day of discharge: Labs from last 24 hours 03/26/20 03/26/20 03/26/20 17:30 12:32 06:18 WBC 11.82 H D RBC 4.83 Hgb 14.8 Hct 44.0 MCV 91.1 MCH 30.6 MCHC 33.6 RDW 13.7 Plt Count 297 MPV 10.0 Immature Gran % 0.3 Neutrophils % 81.0 Lymphocytes % 11.6 Monocytes % 6.3 Eosinophils % 0.5 Basophils % 0.3 Nucleated RBC % 0 Absolute Neutrophils 9.57 H Absolute Lymphocytes 1.37 Absolute Monocytes 0.74 Absolute Eosinophils 0.06 Absolute Basophils 0.04 VBG pH 7.34 7.34 VBG pCO2 41 37 L VBG pO2 37 60 VBG HCO3 22 L 20 L VBG Total CO2 20 L 18 L VBG O2 Saturation 71 92 VBG Base Excess -4 L -6 L Sodium Potassium Chloride Carbon Dioxide Anion Gap BUN Creatinine Estimated GFR/1.73 m2 Glucose Calcium Magnesium COVID-19 PCR Nasopharyn COVID-19 PCR Ref Test Perform Site 03/26/20 03/25/20 06:18 10:40 WBC RBC Hgb Hct MCV MCH MCHC RDW Plt Count MPV Immature Gran % Neutrophils % Lymphocytes % Monocytes % Eosinophils % Basophils % Nucleated RBC % Absolute Neutrophils Absolute Lymphocytes Absolute Monocytes Absolute Eosinophils Absolute Basophils VBG pH VBG pCO2 VBG pO2 VBG HCO3 VBG Total CO2 VBG O2 Saturation VBG Base Excess Sodium 140 Potassium 4.3 Chloride 109 H Carbon Dioxide 19.4 L Anion Gap 11.6 H BUN 18 Creatinine 1.35 H Estimated GFR/1.73 m2 55.94 Glucose 178 H Calcium 8.9 Magnesium 2.2 COVID-19 PCR Negative Nasopharyn COVID-19 PCR Not Applicable Ref Test Perform Site [facility] Preliminary micro results at discharge 03/25/20 10:25 Blood Culture - Preliminary Blood NO GROWTH 24 HOURS 03/25/20 10:05 Blood Culture - Preliminary Blood NO GROWTH 24 HOURS [facility] Medical History Diabetic ketoacidosis, type I (09/14/14) HLD (hyperlipidemia) Leukocytosis (09/14/14) Multiple nevi CYNTHIA (obstructive sleep apnea) hasn't been a problem since he lost weight PDR (proliferative diabetic retinopathy) procedure around 1995 for repair Type 1 diabetes Family History Mother Depression Father No problems noted. Sister No problems noted. Son No problems noted. Son No problems noted. Daughter No problems noted. Maternal Grandfather , 80's No problems noted. Paternal Grandfather , 92 No problems noted. Maternal Grandmother , 80's No problems noted. Paternal Grandmother , 60's No problems noted. Social History Smoking/Tobacco Use Status: Never Alcohol Intake: never Drug use: Never Caregiver/Support person: No Household members: spouse and children Housing: house Communication Needs: None Do you need help understanding health information?: Rarely Pets and animals: Yes Pets and animals: cat(s) Sexually active: Yes Do you think of yourself as: straight/heterosexual Current gender identity: male What is your relationship status?: How often do you talk on the phone with friends or family?: never How often do you get together with friends or relatives?: once per week How often do you attend presybeterian or adventism services?: 4 or more times per year Do you belong to any clubs or organized social groups?: no Panel score (0-1 are the most socially isolated patients): 2 What type of physical activity do you participate in: walking Duration: 15-30 minutes/day Frequency: 1-2 times per week Samia/Taoist: Baptism Special samia needs: No Seatbelt use: always 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
[2020-03-27] MEDS: Atorvastatin 40 MG TAB PO (09:07)
[2020-03-27] MEDS: Insulin Aspart 300 UNITS/3 ML PEN SC (09:07)
[2020-03-27 09:39] VITALS: BP 130/79; PULSE 80; RESP 17; TEMP 36.6; O2SAT 97
--- NOTE | 2020-03-27 17:23 | PDOC.CMDIS ---
- If Service Date Differs Date of service: 03/27/20 Time of Service: 17:23 LACE Index Scoring Tool - Questions: Length of Stay (in days): 3 Acuity (Admit via E.D.?): Yes Comorbidities: Diabetes w/o Complication E.D. Visits: 1 - Answers: Total Score: 8 Risk of Readmission: Low Risk Care Management Discharge Reason for Hospitalization: DKA Discharge Plan: Bjorn will return home with no additional services at this time. His will drive him home via private vehicle. He will follow up with his PCP and discharge plan of care. He is happy to be going home. Patient/Family Education Needs: Review discharge instructions regarding activity levels and medications, discussion of self care needs including ask me three.
== END 2020-03-27 10:45 | disposition home or self-care (01) | DRG 639 ==
LOC: ER 10:01 → ICU 13:55
PROVIDERS: Internal Medicine; Admitting Provider Family Medicine; Emergency Provider Emergency Medicine; PCP Nurse Practitioner; Visit Provider Family Medicine
DX: E10.11 Type 1 diabetes mellitus with ketoacidosis with coma (principal); E10.319 Type 1 diabetes mellitus with unspecified diabetic retinopathy without macular edema; E78.5 Hyperlipidemia, unspecified; E03.9 Hypothyroidism, unspecified
CPT/HCPCS: 36410; 36415; 36416; 70496; 80048; 80053; 82805; 82962; 83690; 87040; 90686; 93005; 96361; 96365; 96366; 96372; 96375; 99222; 99232; 99239; 99291; U0003; 81003; 81015; 83605; 83735; 84443; 85025; 93010; J1885; J2405; J3490; J7042

== ENCOUNTER 2021-02-15 04:06 | Outpatient (CLI) | payer BC, SELFPAY ==
[2021-02-15 12:41] LABS: CREATININE 1.1 mg/dL (0.70-1.30); Calculated LDL 178 mg/dL (<100); Cholesterol 238 mg/dL (<200); HDL Cholesterol 44 mg/dL (40-60); Potassium 5.5 mmol/L (3.5-5.1); TSH 7.91 uIU/mL (0.36-3.74); Triglyceride 80 mg/dL (<150)
== END 2021-02-15 04:07 | disposition home or self-care (01) ==
LOC: LOS 04:07
PROVIDERS: PCP Nurse Practitioner; Visit Provider Nurse Practitioner
DX: E78.2 Mixed hyperlipidemia (principal); E03.9 Hypothyroidism, unspecified; E10.319 Type 1 diabetes mellitus with unspecified diabetic retinopathy without macular edema
CPT/HCPCS: 36415; 80061; 82565; 84132; 84443

== ENCOUNTER 2021-02-21 02:19 | Outpatient (CLI) | payer BC, SELFPAY ==
[2021-02-21 10:05] LABS: Potassium 4.9 mmol/L (3.5-5.1)
== END 2021-02-21 02:20 | disposition home or self-care (01) ==
LOC: LOS 02:19
PROVIDERS: PCP Nurse Practitioner; Visit Provider Nurse Practitioner
DX: E87.5 Hyperkalemia (principal)
CPT/HCPCS: 36415; 84132

== ENCOUNTER 2021-03-29 01:25 | Outpatient (CLI) | payer BC, SELFPAY ==
[2021-03-29 13:06] LABS: TSH 0.08 uIU/mL (0.36-3.74)
== END 2021-03-29 01:26 | disposition home or self-care (01) ==
PROVIDERS: PCP Nurse Practitioner; Visit Provider Nurse Practitioner
DX: E03.9 Hypothyroidism, unspecified (principal); E78.5 Hyperlipidemia, unspecified
CPT/HCPCS: 36415; 84443

== ENCOUNTER 2021-04-14 13:57 | Inpatient (IN) | payer BC, SELFPAY ==
[2021-04-14] VITALS (24 sets, daily range): BP systolic 111–139; BP diastolic 53–77; PULSE 78–109; RESP 16–25; TEMP 36.4–36.6; O2SAT 96–100
--- NOTE | 2021-04-14 14:15 | RT.EKG_ITS ---
APPROVED REPORT Exam: Resting ECG Reason for Exam: diabetic issue Patient Location: E HR:93 bpm ECG Measurements Heart Rate 93 AXIS AL 164 P 64 QRSd 99 QRS -55 QT 347 T 53 QTc 432 Conclusion Sinus rhythm...normal P axis, V-rate 60- 99 LAD, consider left anterior fascicular block...axis(240,-40), S>R II III aVF
--- NOTE | 2021-04-14 14:38 | W.ED.GENAD ---
Discharge Plan Discharge Details Chief Complaint: Diabetes Admit Date/Time: 04/14/21 16:12 Admit Provider: Barney Villalta Attending Provider: Barney Villalta Primary Care Provider: Roya Kwong ED Provider: Jennifer Romo Discharge Data Discharge Date/Time-TO BE ENTERED AT DEPARTURE: 04/14/21 17:45 Medical Decision Making Patient is a pleasant 51-year-old male, accompanied by his , with chief complaint of elevated glucose, ketones in the urine and possible DKA. Patient reports that last night he had some leg cramping which is atypical. States that in the middle the night he began having nausea and vomiting. Has not been able to stay hydrated throughout the course the day. Last had 6 units of insulin at 11 AM. Patient reports last A1c was 7.1. Denies any fevers or chills. No chest pain, shortness of breath. Denies any diarrhea or change in bowel habits. No abdominal pain. No previous abdominal surgeries. Test of urine with a home dip test and found to be positive for ketones. On exam, patient appears ill. He appears pale. He is tachycardic. Appears dry. Tachypnic. Lungs are clear, normal cardiac auscultation. Abdomen benign. No lower extermity pain/swelling. We will begin work-up for DKA. We will begin aggressive hydration. Will give Zofran for nausea. EKG obtained and reviewed by Dr. Lucero. Patient is in a sinus rhythm with a rate of 93. No acute ischemic changes noted. Contacted by the lab. Patient's pH is 7.07. His lactate is 2.1. When giving the IV Zofran, patient began to develop central, non-radiating CP. Continues to deny SOB. No radiation into the back. Zofran push was stopped, will obtain repeat ECG and troponin. Repeat ECG was reviewed by Dr. Lucero. Notes early repol but does not feel that this represents STEMI. Contacted again by the labs and patient has a potassium 2.9. He does not have EKG changes associated with hyperkalemia. Patient is receiving his continued aggressive hydration. Remaining labs reviewed. Patient has corrected sodium of 136. Anion gap of 25. Creatinine is elevated at 1.7. Glucose 308. Will give bicarb. As he does not have any EKG changes, will hold off on the calcium gluconate. Will wait on the insulin until the patient has had fluids and then will begin on an insulin drip. CBC appears concentrated. Leukocytosis at 14.5. Hemoglobin 18.3. Troponin within normal limits. Plan to repeat. Urine shows large amount of ketones. No leukocyte esterase or evidence of infection. Covid testing negative. Consulted with Dr. Pierson who agrees to admission to the ICU for continued management of the patient DKA. HPI General Mode of arrival: wheelchair. Date/Time Provider Initiated Documentation: 04/14/21 14:38. Limitations to Documentation: no limitations. Information obtained by: patient, family () and RN notes reviewed. History of Present Illness 51 year old M presents to the emergency department with the chief complaint of nausea, vomiting, possible DKA, described as severe and similar to prior episodes, Quality is described as other (denies any pain at this time), and is localized to the abdomen. Patient reports no radiation. Patient started experiencing this hour(s) (began in early AM) and it has been constant. No relieving factors improve symptom(s), No exacerbating factors reported . Patient notes loss of appetite and nausea/vomiting; denies confusion, chest pain, cough, diaphoresis, fever/chills, seizure, shortness of breath and syncope. Patient did receive the following treatments prior to arrival, none Related Data Home Medications Medication Instructions Recorded Confirmed Glucagon Emergency Kit (human) 1 mg IJ DIRECTED #1 kit 09/16/14 03/08/21 urine glucose-ketones test #50 strip 09/16/14 03/08/21 [Keto-Diastix] lisinopril 5 mg tablet 2.5 mg PO DAILY #90 tab 10/22/19 04/14/21 levothyroxine 200 mcg tablet 200 mcg PO DAILY #90 tab 04/11/20 04/14/21 insulin glargine 100 unit/mL (3 32 unit SC DAILY #15 ml 09/29/20 04/14/21 mL) subcutaneous pen atorvastatin 80 mg tablet 80 mg PO QPM #90 tab 02/16/21 04/14/21 insulin lispro [Humalog KwikPen See Rx Instructions .ROUTE .COMPLEX 04/14/21 04/14/21 Insulin] Previous Rx's Medication Instructions Recorded Glucagon Emergency Kit (human) 1 mg IJ DIRECTED #1 kit 09/16/14 urine glucose-ketones test #50 strip 09/16/14 [Keto-Diastix] lisinopril 5 mg tablet 2.5 mg PO DAILY #90 tab 10/22/19 levothyroxine 200 mcg tablet 200 mcg PO DAILY #90 tab 04/11/20 insulin glargine 100 unit/mL (3 32 unit SC DAILY #15 ml 09/29/20 mL) subcutaneous pen atorvastatin 80 mg tablet 80 mg PO QPM #90 tab 02/16/21 Allergies Allergy/AdvReac Type Severity Reaction Status Date / Time No Known Allergies Allergy Verified 03/08/21 13:58 General Stated Complaint: Diabetes ALBAN: 2 Review of Systems Constitutional Constitutional: Reports as per HPI, Denies chills, Reports fatigue, Denies fever(s), Denies headache(s), Reports lethargy, Reports malaise, Reports poor appetite and Reports weakness (generally weak) ENT Ears, Nose, Mouth, and Throat: Denies headache(s) Cardiovascular Cardiovascular: Reports as per HPI, Denies chest pain, Denies leg edema, Denies lightheadedness and Denies dyspnea (denies SOB but does have increased RR) Respiratory Respiratory: Reports as per HPI, Denies cough and Denies dyspnea (denies SOB but does have increased RR) Gastrointestinal Gastrointestinal: Reports as per HPI, Denies change in stool character, Reports nausea, Reports vomiting and Denies hematemesis Genitourinary Genitourinary: Denies system reviewed and no additional complaints, except as documented (patient denies any change in urinary habits, ketones in urine) Musculoskeletal Musculoskeletal: Reports as per HPI and Denies back pain Integumentary/Breasts Skin/Breast: Reports as per HPI and Denies rash Neurologic Neurologic: Reports as per HPI, Denies headache(s) and Reports weakness (generally weak) Endocrine Endocrine: Reports fatigue [facility] Medical History Diabetic ketoacidosis, type I (09/14/14) DKA (diabetic ketoacidoses) HLD (hyperlipidemia) Leukocytosis (09/14/14) Multiple nevi CYNTHIA (obstructive sleep apnea) hasn't been a problem since he lost weight PDR (proliferative diabetic retinopathy) procedure around 1995 for repair Type 1 diabetes Family History Mother Depression Father No problems noted. Sister No problems noted. Son No problems noted. Son No problems noted. Daughter No problems noted. Maternal Grandfather , 80's No problems noted. Paternal Grandfather , 92 No problems noted. Maternal Grandmother , 80's No problems noted. Paternal Grandmother , 60's No problems noted. Social History Smoking/Tobacco Use Status: Never Second Hand Exposure: No Smoking risk assessment performed?: Yes Alcohol Intake: never Drug use: Never Caregiver/Support person: No Household members: spouse and children Housing: house Communication Needs: None Do you need help understanding health information?: Rarely Pets and animals: Yes Pets and animals: cat(s) Sexually active: Yes Do you think of yourself as: straight/heterosexual Current gender identity: male What is your relationship status?: How often do you talk on the phone with friends or family?: once per week How often do you get together with friends or relatives?: once per week How often do you attend scientologist or baptism services?: 4 or more times per year Do you belong to any clubs or organized social groups?: no Panel score (0-1 are the most socially isolated patients): 2 What type of physical activity do you participate in: walking Duration: < 15 minutes/day Frequency: 3-4 times per week Samia/Hoahaoism: Rastafarian Special samia needs: No Seatbelt use: always Helmet use: Yes Helmet use: always Drive 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 Do you feel safe at home: Yes Do you feel safe in your relationship?: Yes Exam Const General: cooperative, not healthy appearing, well developed, in distress mild (increased RR, pale, appears fatigued) and ill appearing acutely Nutritional Appearance: average body habitus and well nourished Orientation: alert and awake HENHI Head: normal to inspection Mouth: mucous membranes dry (appears very dry) Throat: posterior oropharynx normal Eyes General: appearance normal, both eyes and all related structures Resp Effort & Inspection: normal respiratory effort, able to speak in complete sentences, not labored, no respiratory distress and tachypneic Auscultation: clear to auscultation bilaterally, no rales, no rhonchi and no wheezes Cardio Rate: tachycardic Rhythm: regular rhythm Heart Sounds: S1 normal and S2 normal GI Inspection: normal to inspection Palpation: soft, no hepatosplenomegaly, not firm, no guarding, no pulsatile masses and nontender Percussion: normal to percussion Auscultation: normal bowel sounds Back/Spine/Pelvis Back: no CVA tenderness Skin General skin exam: no rashes or lesions noted Trauma: no lacerations or abrasions Neuro General: patient alert and patient awake Cognition: normal cognition Speech: speech normal Gait: normal gait Extrem General: normal to inspection, no pedal edema, no calf tenderness and normal gait Psych Appearance: grossly normal and well kempt Mental Status: mental status grossly normal Speech and Movement: speech and movement normal Course Vital Signs Vital signs: Vital Signs Temperature 36.6 C 04/14/21 14:09 Pulse 109 H 04/14/21 14:09 Respiratory Rate 22 04/14/21 14:09 Blood Pressure 134/77 04/14/21 14:09 Pulse Oximetry 98 04/14/21 14:09 Temperature 36.6 C 04/14/21 14:09 Temperature Source Temporal Artery Scan 04/14/21 14:09 Pulse 109 H 04/14/21 14:09 Respiratory Rate 22 04/14/21 14:09 Blood Pressure 134/77 04/14/21 14:09 Pulse Oximetry 98 04/14/21 14:09 Oxygen Delivery Method Room Air 04/14/21 14:09 Oxygen Flow Rate 0 04/14/21 14:09 Pain Level 5 04/14/21 14:09
[2021-04-14 15:03] LABS: Abs Immature Grans 0.06 10^3/uL (0.0-0.06); Absolute Basophil Count 0.04 10^3/uL (0.0-0.2); Absolute Eosinophil Count 0.01 10^3/uL (0.0-0.7); Absolute Lymphocyte Count 0.63 10^3/uL (1.2-3.4); Basophils % 0.3; Eosinophils % 0.1; HCO3 (Venous) 10 mmol/L (23-28); HCT 55.5 % (40.0-50.0); HGB 18.3 g/dL (13.5-17.5); Immature Grans % 0.4; Lymphocytes % 4.3; MCH 30.3 pg (27.0-33.0); MCV 91.9 fL (80-95); MPV 10.2 fL (8.0-11.0); Monocytes % 4.1; Neutrophils % 90.8; Nucleated RBC 0 %; O2 Sat (Venous) 45 %; Platelet Count 374 10^3/uL (130-400); RBC 6.04 10^6/uL (4.36-5.78); RDW 12.2 % (11.8-14.1); RDW-SD 41.7 fL; TCO2 (Venous) 9 mmol/L (24-29); WBC 14.55 10^3/uL (4.4-10.8); pCO2 (Venous) 33 mmHg (41-51); pO2 (Venous) 27 mmHg
[2021-04-14 15:09] LABS: Lactate 2.1 mmol/L (0.6-1.4); pH (Venous) 7.07 (7.31-7.41)
[2021-04-14 15:10] LABS: Absolute Neutrophil Count 13.21 10^3/uL (1.2-6.7)
[2021-04-14 15:24] LABS: ALT 33 U/L (16-63); AST 16 U/L (15-37); Albumin 5.1 g/dL (3.4-5.0); Alkaline Phosphatase 132 U/L (46-116); Anion Gap 25.9 mmol/L (3-11); BUN 15 mg/dL (7-18); Bilirubin, Total 0.8 mg/dL (0.2-1.0); CO2 11.1 mmol/L (21.0-32.0); CREATININE 1.7 mg/dL (0.70-1.30); Calcium 10.3 mg/dL (8.5-10.1); Chloride 96 mmol/L (98-107); Glucose 308 mg/dL (74-106); Magnesium 2.4 mg/dL (1.8-2.4); Sodium 133 mmol/L (136-145)
[2021-04-14] MEDS: Lactated Ringers 1,000 ML 1000 ML IV ×2 (15:26→16:14)
[2021-04-14] MEDS: Ondansetron 4 MG/2 ML VIAL IVP (15:29)
--- NOTE | 2021-04-14 15:30 | RT.EKG_ITS ---
APPROVED REPORT Exam: Resting ECG Reason for Exam: Patient Location: E HR:91 bpm ECG Measurements Heart Rate 91 AXIS VT 171 P 47 QRSd 104 QRS -19 QT 348 T 52 QTc 430 Conclusion Sinus rhythm...normal P axis, V-rate 60- 99 ST elev, probable normal early repol pattern...ST elevation, age<55
[2021-04-14 15:35] LABS: Potassium 6.9 mmol/L (3.5-5.1); Troponin I < 0.05 ng/mL (<0.06)
[2021-04-14] MEDS: Sodium Bicarbonate 50 MEQ/50 ML SYR (16:08)
[2021-04-14] MEDS: Normal Saline Flush 10 ML SYR IVP ×2 (16:15→20:00)
[2021-04-14] MEDS: Aspirin 81 MG CHEW 324 MG CH (16:44)
[2021-04-14 16:47] LABS: Troponin I < 0.05 ng/mL (<0.06)
[2021-04-14 16:53] LABS: Bilirubin Negative (Negative); Blood Trace-intact (Negative); Clarity Clear (Clear); Glucose 500 mg/dL (Negative); Ketones >=160 mg/dL (Negative); Leukocyte Esterase Negative (Negative); Nitrite Negative (Negative); Specific Gravity >= 1.030 (1.005-1.025); Urobilinogen 0.2 EU/dL (Up TO 0.2); pH 5.5 (5-8)
[2021-04-14 17:24] LABS: Bacteria Negative HPF (Negative); C & S Indicated? No; Casts Negative LPF (Negative); Crystals Negative HPF (Negative); Epithelial Cells Negative HPF (Negative); Mucus Negative (Negative); Other Cells Negative (Negative); RBC 0-2 HPF (0-2); WBC 0-2 HPF (0-5)
[2021-04-14 17:38] LABS: Source Nasal/Nares
[2021-04-14] MEDS: Lactated Ringers 1,000 ML 200 ML IV (17:38)
[2021-04-14] MEDS: INSULIN REGULAR IN 0.9 % NACL 100 UNIT/100 ML BAG 9.5 UNIT IV (17:38)
--- NOTE | 2021-04-14 18:29 | W.PM.HP.N ---
Date of service: 04/14/21 Time of Service: 18:30 Assessment and Plan Assessment and plan (1) DKA (diabetic ketoacidoses): Status: Acute Assessment and plan: acute DKA of undetermined origin. He denies skipping any of his insulin. He believes that he may have become dehydrated over the past few days from working outdoors but denies any ill contacts and has no URI symptomss or sinusitis nor any cough or sputum and denies any dysuria or GI symptoms other than the nausea and vomiting which began today. he feels much better now that he has had iv fluids and antiemetics. Patient will be monitored in the ICU while he continues to be rehydratd and receives insulin drip and his BMP and glucose is monitored. He is currently hyperkalemic but when his potassium drops below 5.5 he ought to receive additional potassium in his iv. When his glucose drops below 200 he ought to be put on dextrose in his iv. When his anion gap closes and his ketonuria resolves then he can be put back on basal/bolus insulin Qualifiers: Diabetes mellitus type: type 1 Diabetes mellitus complication detail: without coma Qualified Code(s): E10.10 - Type 1 diabetes mellitus with ketoacidosis without coma (2) Type 1 diabetes: Status: Acute Assessment and plan: as above. Will check his latest glycohemoglobin A1c in the a.m. to assess buttermaker helper control. Qualifiers: Diabetes mellitus complication status: with ophthalmic complications Diabetes mellitus complication detail: with diabetic retinopathy Diabetic retinopathy severity: with unspecified retinopathy severity Diabetes mellitus macular edema: without macular edema Laterality: unspecified laterality Qualified Code(s): E10.319 - Type 1 diabetes mellitus with unspecified diabetic retinopathy without macular edema (3) ARASELI (acute kidney injury): Status: Acute Assessment and plan: probably d/t dehydration from DKA however there may be a buttermaker helper component from diabetic nephropathy. Will monitor his urine output while rehydrating him and repeat his serial BMP. (4) Dehydration: Status: Acute Assessment and plan: as above (5) Leukocytosis, unspecified: Status: Acute Assessment and plan: secondary to DKA. No fever or other evidence for infection. No need for antibiotics. Will repeat his CBC in the a.m. Qualifiers: Leukocytosis type: leukemoid reaction Qualified Code(s): D72.823 - Leukemoid reaction (6) DVT prophylaxis: Status: Acute Assessment and plan: enoxaparin SC (7) Discharge planning issues: Status: Acute Assessment and plan: patient is a full code. discharge will be home once his DKA has resolved and he is back on basal/bolus insulin w/ controlled glucose readings and normalized AG. Critical care time spent evaluating the patient, discussion w/ ER staff and reviewing labs and putting in orders 1 hour History of Present Illness History of Present Illness Chief Complaint: DKA Narrative: 51 yr old male w/ type 1 DM since age 8 yr who developed acute symptoms of muscle aches and fatigue that began yesterday and overnight developed nausea and vomiting. He noted his blood sugars in the mid 200's but when his sugars did not come down w/ use of his insulin he checked his urine ketostix and noted urinary ketones prompting his to call EMS for transport to the ER for evaluation of DKA. On arrival he was evaluated found to be tachycardic at 109 bmp, no hypotension and no fever. Labs included CBC, CMP, UA, ABG, troponin. Troponin was negative. ABG demonstrated pH 7.20 w/ PCO2 21, CMP demonstrated AG of 29, CO2 11, glucose 308, k+ 6.9, creatinine of 1.7. UA was + for ketones at >160. Patient was treated w/ 2 L of LR and put on insulin drip at 9.5 units/hr. He is now admitted to the ICU for treatment of DKA. He denies any precipitating causes such as fever, URI symptoms, open sores, rigors, cough or dyspnea or chest pains. He states that in the past when he has had DKA usually his glucose will run in the 300's so when his glucose was mildly elevated and he felt fatigued and had muscle aches yesterday he did not suspect DKA. It was only today when he was nauseated and had emesis that he suspected dehydration and his suggested he check his urine for ketones that he realized he was in DKA. He denies any ill contacts nor any exposure to COVID-19 and he is fully vaccinated against COVID-19. Review of Systems All systems reviewed & are unremarkable except as noted in HPI and below [facility] Medical History (Updated 04/14/21 @ 22:24 by Barney Villalta) Diabetic ketoacidosis, type I (09/14/14) DKA (diabetic ketoacidoses) HLD (hyperlipidemia) Leukocytosis (09/14/14) Multiple nevi CYNTHIA (obstructive sleep apnea) hasn't been a problem since he lost weight PDR (proliferative diabetic retinopathy) procedure around 1995 for repair Type 1 diabetes Family History Mother Depression Father No problems noted. Sister No problems noted. Son No problems noted. Son No problems noted. Daughter No problems noted. Maternal Grandfather , 80's No problems noted. Paternal Grandfather , 92 No problems noted. Maternal Grandmother , 80's No problems noted. Paternal Grandmother , 60's No problems noted. Social History Smoking/Tobacco Use Status: Never Second Hand Exposure: No Smoking risk assessment performed?: Yes Alcohol Intake: never Drug use: Never Caregiver/Support person: No Household members: spouse and children Housing: house Communication Needs: None Do you need help understanding health information?: Rarely Pets and animals: Yes Pets and animals: cat(s) Sexually active: Yes Do you think of yourself as: straight/heterosexual Current gender identity: male What is your relationship status?: How often do you talk on the phone with friends or family?: once per week How often do you get together with friends or relatives?: once per week How often do you attend shinto or religion services?: 4 or more times per year Do you belong to any clubs or organized social groups?: no Panel score (0-1 are the most socially isolated patients): 2 What type of physical activity do you participate in: walking Duration: < 15 minutes/day Frequency: 3-4 times per week Samia/Yazdanism: Jain Special samia needs: No Seatbelt use: always Helmet use: Yes Helmet use: always Drive intox or ride w/intox four horse hitch driver: No Do you feel safe at home: Yes Do you feel safe in your relationship?: Yes Meds Allergies and Home Medications Allergies Allergy/AdvReac Type Severity Reaction Status Date / Time No Known Allergies Allergy Verified 03/08/21 13:58 Home Medications Medication Instructions Recorded Confirmed Type Glucagon Emergency Kit (human) 1 mg IJ DIRECTED #1 kit 09/16/14 03/08/21 Rx urine glucose-ketones test #50 strip 09/16/14 03/08/21 Rx [Keto-Diastix] lisinopril 5 mg tablet 2.5 mg PO DAILY #90 tab 10/22/19 04/14/21 Rx levothyroxine 200 mcg tablet 200 mcg PO DAILY #90 tab 04/11/20 04/14/21 Rx insulin glargine 100 unit/mL (3 32 unit SC DAILY #15 ml 09/29/20 04/14/21 Rx mL) subcutaneous pen atorvastatin 80 mg tablet 80 mg PO QPM #90 tab 02/16/21 04/14/21 Rx insulin lispro [Humalog KwikPen See Rx Instructions .ROUTE .COMPLEX 04/14/21 04/14/21 History Insulin] Exam Narrative Exam Narrative: Middle aged white male who is alert and oriented x 3. He is in no acute distress and not having any Kussmaul respirations. HEENT remarkable for dry mucous membranes but no exudates Neck: supple w/ flat neck veins Lungs: clear to auscultation Heart: RRR w/out murmur, rub or gallops Abdomen: soft and nontender w/ normal bowel sounds; no bruits and no organomegaly Extremites: no peripheral edema nor any cyanosis. no calf tenderness nor any swelling. pedal pulses are normal and he has no open sores over his toes or feet Neuro: grossly normal CN exam and normal motor and sensory exam Genitalia and rectal exam deferred and not clinically indicated. Results Labs Result diagrams: 04/14/21 14:50 04/14/21 21:00 Labs: Laboratory Results - last 24 hr 04/14/21 04/14/21 04/14/21 14:50 14:50 14:50 WBC 14.55 H RBC 6.04 H Hgb 18.3 H Hct 55.5 H MCV 91.9 MCH 30.3 MCHC 33.0 RDW 12.2 Plt Count 374 MPV 10.2 Immature Gran % 0.4 Neutrophils % 90.8 Lymphocytes % 4.3 Monocytes % 4.1 Eosinophils % 0.1 Basophils % 0.3 Nucleated RBC % 0 Absolute Neutrophils 13.21 H Absolute Lymphocytes 0.63 L Absolute Monocytes 0.60 Absolute Eosinophils 0.01 Absolute Basophils 0.04 VBG pH VBG pCO2 VBG pO2 VBG HCO3 VBG Total CO2 VBG O2 Saturation VBG Base Excess VBG Lactate 2.1 H Sodium 133 L Potassium 6.9 H* Chloride 96 L Carbon Dioxide 11.1 L Anion Gap 25.9 H BUN 15 Creatinine 1.7 H Estimated GFR/1.73 m2 42.70 Glucose 308 H Calcium 10.3 H Magnesium 2.4 Total Bilirubin 0.8 AST 16 ALT 33 Alkaline Phosphatase 132 H Troponin I Total Protein 10.0 H Albumin 5.1 H Urine Color Urine Clarity Urine pH Ur Specific [place] Urine Protein Urine Ketones Urine Blood Urine Nitrite Urine Bilirubin Urine Urobilinogen Ur Leukocyte Esterase Urine RBC Urine WBC Ur Epithelial Cells Urine Crystals Urine Bacteria Urine Casts Urine Mucus Urine Other Ur Culture Indicated? Urine Glucose COVID-19 Source 04/14/21 04/14/21 04/14/21 14:50 14:50 16:20 WBC RBC Hgb Hct MCV MCH MCHC RDW Plt Count MPV Immature Gran % Neutrophils % Lymphocytes % Monocytes % Eosinophils % Basophils % Nucleated RBC % Absolute Neutrophils Absolute Lymphocytes Absolute Monocytes Absolute Eosinophils Absolute Basophils VBG pH 7.07 L* VBG pCO2 33 L VBG pO2 27 VBG HCO3 10 L VBG Total CO2 9 L VBG O2 Saturation 45 VBG Base Excess < -15 L VBG Lactate Sodium Potassium Chloride Carbon Dioxide Anion Gap BUN Creatinine Estimated GFR/1.73 m2 Glucose Calcium Magnesium Total Bilirubin AST ALT Alkaline Phosphatase Troponin I < 0.05 < 0.05 Total Protein Albumin Urine Color Urine Clarity Urine pH Ur Specific [place] Urine Protein Urine Ketones Urine Blood Urine Nitrite Urine Bilirubin Urine Urobilinogen Ur Leukocyte Esterase Urine RBC Urine WBC Ur Epithelial Cells Urine Crystals Urine Bacteria Urine Casts Urine Mucus Urine Other Ur Culture Indicated? Urine Glucose COVID-19 Source 04/14/21 04/14/21 16:45 17:18 WBC RBC Hgb Hct MCV MCH MCHC RDW Plt Count MPV Immature Gran % Neutrophils % Lymphocytes % Monocytes % Eosinophils % Basophils % Nucleated RBC % Absolute Neutrophils Absolute Lymphocytes Absolute Monocytes Absolute Eosinophils Absolute Basophils VBG pH VBG pCO2 VBG pO2 VBG HCO3 VBG Total CO2 VBG O2 Saturation VBG Base Excess VBG Lactate Sodium Potassium Chloride Carbon Dioxide Anion Gap BUN Creatinine Estimated GFR/1.73 m2 Glucose Calcium Magnesium Total Bilirubin AST ALT Alkaline Phosphatase Troponin I Total Protein Albumin Urine Color Yellow Urine Clarity Clear Urine pH 5.5 Ur Specific [place] >= 1.030 H Urine Protein 30 H Urine Ketones >=160 H Urine Blood Trace-intact H Urine Nitrite Negative Urine Bilirubin Negative Urine Urobilinogen 0.2 Ur Leukocyte Esterase Negative Urine RBC 0-2 Urine WBC 0-2 Ur Epithelial Cells Negative Urine Crystals Negative Urine Bacteria Negative Urine Casts Negative Urine Mucus Negative Urine Other Negative Ur Culture Indicated? No Urine Glucose 500 H COVID-19 Source Nasal/Nares Last Vital Signs Temp 36.6 C 04/14/21 14:09 Pulse 109 H 04/14/21 14:09 Resp 20 04/14/21 17:20 BP 134/77 04/14/21 14:09 Pulse Ox 99 04/14/21 17:20
[2021-04-14 19:25] LABS: HCO3 8 mmol/L (22-26); pCO2 21 mmHg (35-45); pO2 91 mmHg (80-105); sO2 97 % (95-98); tCO2 8 mmol/L (23-27)
[2021-04-14 19:31] LABS: FIO2 21 %; Site Left Radial
[2021-04-14 19:38] LABS: BUN 14 mg/dL (7-18); CREATININE 1.4 mg/dL (0.70-1.30); Calcium 9.1 mg/dL (8.5-10.1); Chloride 104 mmol/L (98-107); Estimated GFR 53.43 (mL/min/1.73m2); Glucose 227 mg/dL (74-106); Potassium 5.4 mmol/L (3.5-5.1); Sodium 137 mmol/L (136-145)
[2021-04-14 19:42] LABS: PHOSPHORUS 3.6 mg/dL (2.6-4.7)
[2021-04-14] MEDS: DEXTROSE 5%-LACTATED RINGERS 1,000 ML 200 ML IV (19:55)
[2021-04-14] MEDS: Enoxaparin 40 MG/0.4 ML SYR SC (21:08)
[2021-04-14] MEDS: Atorvastatin 40 MG TAB 80 MG PO (21:08)
[2021-04-14] MEDS: Docusate Sodium 100 MG CAP PO (21:17)
[2021-04-14 21:23] LABS: Anion Gap 19.1 mmol/L (3-11); BUN 13 mg/dL (7-18); CO2 14.9 mmol/L (21.0-32.0); CREATININE 1.3 mg/dL (0.70-1.30); Calcium 8.7 mg/dL (8.5-10.1); Chloride 105 mmol/L (98-107); Glucose 185 mg/dL (74-106); Sodium 139 mmol/L (136-145)
[2021-04-14 21:35] LABS: Troponin I < 0.05 ng/mL (<0.06)
[2021-04-14] MEDS: POTASSIUM CHLORIDE/D5-0.45NACL 1,000 ML 200 MEQ IV (22:02)
[2021-04-14] MEDS: Pantoprazole 40 MG TABCR PO (23:01)
[2021-04-14 23:11] LABS: Anion Gap 12.9 mmol/L (3-11); BUN 11 mg/dL (7-18); CO2 18.1 mmol/L (21.0-32.0); CREATININE 1.4 mg/dL (0.70-1.30); Calcium 8.8 mg/dL (8.5-10.1); Chloride 106 mmol/L (98-107); Estimated GFR 53.43 (mL/min/1.73m2); Glucose 177 mg/dL (74-106); Potassium 3.8 mmol/L (3.5-5.1); Sodium 137 mmol/L (136-145)
[2021-04-14] MEDS: Insulin Glargine 300 UNITS/3 ML PEN 32 UNITS SC (23:34)
[2021-04-15] VITALS (24 sets, daily range): BP systolic 97–114; BP diastolic 52–70; PULSE 69–98; RESP 12–30; TEMP 36.4–37.2; O2SAT 94–96
[2021-04-15] MEDS: POTASSIUM CHLORIDE/D5-0.45NACL 1,000 ML 150 MEQ IV (00:25)
[2021-04-15 00:35] LABS: COVID-19 PCR Negative (Negative)
[2021-04-15 02:13] LABS: BE (Venous) -8 mmol/L (-2-3); HCO3 (Venous) 18 mmol/L (23-28); O2 Sat (Venous) 96 %; TCO2 (Venous) 16 mmol/L (24-29); pCO2 (Venous) 35 mmHg (41-51); pH (Venous) 7.32 (7.31-7.41); pO2 (Venous) 76 mmHg
[2021-04-15 02:23] LABS: Anion Gap 9.6 mmol/L (3-11); BUN 11 mg/dL (7-18); CO2 21.4 mmol/L (21.0-32.0); CREATININE 1.4 mg/dL (0.70-1.30); Calcium 8.8 mg/dL (8.5-10.1); Chloride 108 mmol/L (98-107); Estimated GFR 53.43 (mL/min/1.73m2); Glucose 110 mg/dL (74-106); Potassium 3.7 mmol/L (3.5-5.1); Sodium 139 mmol/L (136-145)
[2021-04-15] MEDS: INSULIN REGULAR IN 0.9 % NACL 100 UNIT/100 ML BAG 7.5 UNIT IV (03:10)
[2021-04-15] MEDS: Levothyroxine 200 MCG TAB PO (06:58)
[2021-04-15 07:58] LABS: BE (Venous) -8 mmol/L (-2-3); HCO3 (Venous) 18 mmol/L (23-28); O2 Sat (Venous) 88 %; TCO2 (Venous) 17 mmol/L (24-29); pCO2 (Venous) 38 mmHg (41-51); pH (Venous) 7.29 (7.31-7.41); pO2 (Venous) 51 mmHg
[2021-04-15 08:03] LABS: Abs Immature Grans 0.02 10^3/uL (0.0-0.06); Absolute Basophil Count 0.02 10^3/uL (0.0-0.2); Absolute Eosinophil Count 0.06 10^3/uL (0.0-0.7); Absolute Lymphocyte Count 1.26 10^3/uL (1.2-3.4); Absolute Monocyte Count 1.29 10^3/uL (0.1-0.8); Absolute Neutrophil Count 6.94 10^3/uL (1.2-6.7); Basophils % 0.2; Eosinophils % 0.6; HCT 40.4 % (40.0-50.0); HGB 13.9 g/dL (13.5-17.5); Immature Grans % 0.2; Lymphocytes % 13.1; MCH 30.5 pg (27.0-33.0); MCHC 34.4 % (32.0-36.0); MCV 88.6 fL (80-95); Monocytes % 13.5; Neutrophils % 72.4; Nucleated RBC 0 %; Platelet Count 269 10^3/uL (130-400); RBC 4.56 10^6/uL (4.36-5.78); RDW 12.7 % (11.8-14.1); RDW-SD 41.1 fL; WBC 9.59 10^3/uL (4.4-10.8)
[2021-04-15 08:30] LABS: ALT 18 U/L (16-63); AST 12 U/L (15-37); Alkaline Phosphatase 74 U/L (46-116); Anion Gap 9.8 mmol/L (3-11); BUN 9 mg/dL (7-18); Bilirubin, Total 0.8 mg/dL (0.2-1.0); CO2 21.2 mmol/L (21.0-32.0); CREATININE 1.2 mg/dL (0.70-1.30); Calcium 8.8 mg/dL (8.5-10.1); Chloride 108 mmol/L (98-107); Glucose 87 mg/dL (74-106); Magnesium 1.9 mg/dL (1.8-2.4); Potassium 4.2 mmol/L (3.5-5.1); Sodium 139 mmol/L (136-145); TSH 0.01 uIU/mL (0.36-3.74)
[2021-04-15] MEDS: Pantoprazole 40 MG TABCR PO (08:35)
--- NOTE | 2021-04-15 08:40 | PHA.REVIEW ---
Pharmacy Admission Review - Admission Clinical Review (Last Reviewed 04/15/21 @ 07:40 by TANISHA Mendez) Discharge planning issues (Acute) DVT prophylaxis (Acute) Leukocytosis, unspecified (Acute) Dehydration (Acute) ARASELI (acute kidney injury) (Acute) DKA (diabetic ketoacidoses) (Acute) Type 1 diabetes (Acute) No Known Allergies Allergy (Verified 03/08/21 13:58) Resuscitation Status Full Code Height 5 ft 10.08 in Weight 93.5 kg - Renal Dosing Renal Dosing: BUN 9 mg/dL (7-18) 04/15/21 07:50 Creatinine 1.2 mg/dL (0.70-1.30) 04/15/21 07:50 Medications needing adjustments: Reviewed (CRCL ~75ML/MIN) - Anticoagulation Anticoagulation: Hgb 13.9 g/dL (13.5-17.5) D 04/15/21 07:50 Hct 40.4 % (40.0-50.0) D 04/15/21 07:50 Plt Count 269 10^3/uL (130-400) D 04/15/21 07:50 Creatinine 1.2 mg/dL (0.70-1.30) 04/15/21 07:50 DVT Prophylaxis: Reviewed Medications: Enoxaparin - Relevant Labs Sodium 139 mmol/L (136-145) 04/15/21 07:50 Potassium 4.2 mmol/L (3.5-5.1) 04/15/21 07:50 Chloride 108 mmol/L (98-107) H 04/15/21 07:50 Phosphorus 3.6 mg/dL (2.6-4.7) 04/14/21 19:08 Magnesium 1.9 mg/dL (1.8-2.4) 04/15/21 07:50 Electrolytes, C-Reactive P, ESR: Reviewed - DM Control DM Control: Glucose 87 mg/dL (74-106) 04/15/21 07:50 Finger Stick Blood Glucose 85 Finger Stick Blood Glucose 85 Finger Stick Blood Glucose 85 Finger Stick Blood Glucose 74 Finger Stick Blood Glucose 74 Finger Stick Blood Glucose 66 Finger Stick Blood Glucose 66 Finger Stick Blood Glucose 65 Finger Stick Blood Glucose 65 Finger Stick Blood Glucose 84 Finger Stick Blood Glucose 84 Finger Stick Blood Glucose 105 Finger Stick Blood Glucose 105 Insulin Dosing: Reviewed (INSULIN ASPART AND GLARGINE) - Heart Failure/SD Heart Failure/SD: Troponin I < 0.05 ng/mL (<0.06) 04/14/21 21:00 EF%, JUDIT's, B-Blockers, Diuretics: Reviewed - BP Control BP Control: Blood Pressure 110/55 Blood Pressure 114/56 Blood Pressure 111/53 Blood Pressure 116/55 Blood Pressure 117/58 If elevated: N/A - Qtc Review If Elevated: N/A (430) - IV to PO Switch IV Medications: Reviewed (IVF, meds PO) - Home Meds Home Med List reviewed: Reviewed (lisinopril not ordered) - Current meds Current Medication Order Review: Reviewed (insulin infusion started and now switched to SC insulin)
[2021-04-15 08:47] LABS: Hemoglobin A1C 7.9 % (<5.7)
[2021-04-15] MEDS: Insulin Aspart 300 UNITS/3 ML PEN SC ×2 (09:26→12:45)
--- NOTE | 2021-04-15 12:20 | W.PM.DS.N ---
Date of service: 04/15/21 Time of Service: 12:21 DS: Diagnosis Discharge Diagnosis (1) DKA (diabetic ketoacidoses): Status: Resolved Asessment and Plan: Patient presented w/ glucose of 308 and anion gap of 25.9 and CO2 of 11.1 and pH of 7.20. His DKA resolved w/ iv fluid hydration and insulin drip. Patient was successfully weaned off the insulin drip and converted to basal/bolus insulin including CHO coverage. He remained controlled and was discharged home to follow up w/ his PCP next week. (2) Type 1 diabetes: Status: Chronic Asessment and Plan: glycohemoglobin A1c was checked and found to be elevated at 7.9% implying less than optimal control. Patient is recommended to discuss this w/ his PCP to work on improved outpatient control. (3) ARASELI (acute kidney injury): Status: Resolved Asessment and Plan: patient presented w/ normal BUN 15 but elevated creatinine of 1.7 which resolved to 1.2 at the time of discharge. (4) Hypothyroidism: Status: Chronic Asessment and Plan: TSH was checked and found to be very reduced at 0.01 suggesting that he is taking over replacement of levothyroxine. This was discussed w/ the patient and although his home dose of levothyroxine of 200 mcg was not changed, he ought to discuss this w/ his PCP to adjust his dose downward (5) Dehydration: Status: Resolved (6) Leukocytosis, unspecified: Status: Resolved Asessment and Plan: secondary to DKA. No fever developed and he had no symptoms of infectious causes. His leukocytosis resolved w/ resolution of his DKA (7) Discharge planning issues: Status: Resolved Asessment and Plan: discharged home. follow up w/ PCP within the week. No other outpatient labs or tests were ordered Discharge Plan Disposition Patient Disposition: HOME Condition: Good Discharge Details Reason For Visit: DKA,ARASELI, DEHYDRATION Admit Date/Time: 04/14/21 16:12 Admit Provider: Barney Villalta Attending Provider: Barney Villalta Primary Care Provider: [facility] Course Hospital Course: 51 yr old male w/ type 1 DM since age 8 yr who developed acute symptoms of muscle aches and fatigue that began one day prior to admission and overnight developed nausea and vomiting. He noted his blood sugars in the mid 200's but when his sugars did not come down w/ use of his insulin he checked his urine ketostix and noted urinary ketones prompting his to call EMS for transport to the ER for evaluation of DKA. On arrival he was evaluated found to be tachycardic at 109 bmp, no hypotension and no fever. Labs included CBC, CMP, UA, ABG, troponin. Troponin was negative. ABG demonstrated pH 7.20 w/ PCO2 21, CMP demonstrated AG of 29, CO2 11, glucose 308, k+ 6.9, creatinine of 1.7. UA was + for ketones at >160. Patient was treated w/ 2 L of LR and put on insulin drip at 9.5 units/hr. He is now admitted to the ICU for treatment of DKA. He denies any precipitating causes such as fever, URI symptoms, open sores, rigors, cough or dyspnea or chest pains. He states that in the past when he has had DKA usually his glucose will run in the 300's so when his glucose was mildly elevated and he felt fatigued and had muscle aches yesterday he did not suspect DKA. It was only today when he was nauseated and had emesis that he suspected dehydration and his suggested he check his urine for ketones that he realized he was in DKA. He denies any ill contacts nor any exposure to COVID-19 and he is fully vaccinated against COVID-19. Patient was admitted to the ICU and put on insulin drip. Serial hourly gluocse was monitored and serial labs including BMP were monitored and overnight his anion gap normalized and his glucose came under control. He was switched from insulin drip back to his basal bolus insulin treatment including both a corrective scale and carbohydrate coverage. He was monitored through the morning of his discharge until lunchtime and his glucose remained bewtween 85 to 150. He was tolerating his diet well w/ no nausea or vomiting. He was discharged in markedly improved condition. No changes were made in his insulin orders. His leukocytosis had resolved w/out any antibiotic coverage. His electrolyte abnormalities corrected. His TSH was checked and found to be very low at 0.01. No changes were made to his home dose of levothyroxine however it was recommended that he discuss this w/ his PCP to adjust his dose as an outpatient. Home Meds and New Rx's Prescriptions: Continued lisinopril 5 mg tablet 2.5 mg PO DAILY Qty: 90 RF: 3 levothyroxine 200 mcg tablet 200 mcg PO DAILY Qty: 90 RF: 4 Lantus Solostar U-100 Insulin 100 unit/mL (3 mL) insulin pen 32 unit SC DAILY Qty: 15 RF: 3 atorvastatin 80 mg tablet 80 mg PO QPM Qty: 90 RF: 4 Glucagon Emergency Kit (human) 1 MG kit 1 mg IJ DIRECTED Qty: 1 RF: 0 (DME) urine glucose-ketones test [Keto-Diastix] 1 EACH strip 1 ea Miscellaneous DIRECTED Qty: 50 RF: 0 insulin lispro [Humalog KwikPen Insulin] 100 unit/mL insulin pen See Rx Instructions .ROUTE .COMPLEX RF: 0 Discharge Instructions Instructions: Diabetic Ketoacidosis (DC) Additional Instructions: monitor urine ketostix for next day as well as your routine monitoring of your glucose. call your provider for glucose readings less than 70 or higher than 250. discuss with your provider your thyroid medications. Your TSH levels suggests that you may need a reduction in your thyroid dose Activity:: Activity as Tolerated Equipment/Supplies:: No Equipment Needed Diet:: Carb Counting Discharge Orders Discharge Orders: Discharge Order (Routine); Ordered 04/15/21 Ordered By: Barney Villalta Discharge Data Discharge Date/Time-TO BE ENTERED AT DEPARTURE: 04/15/21 12:45 DS: Summary Time Spent with Patient providing and/or coordinating discharge services: Less than 30 minutes Specific discharge activities: review of pertinent labs, meds and recommendations Status at Discharge Functional status at discharge: independent ambulation Overall status at discharge: patient is back to baseline Mental Status: mental status grossly normal Speech and Movement: speech and movement normal Mood: congruent mood Affect: normal affect Exam Narrative Exam Narrative: Middle aged white male who is alert and oriented x 3. He is in no acute distress and not having any Kussmaul respirations. HEENT remarkable for dry mucous membranes but no exudates Neck: supple w/ flat neck veins Lungs: clear to auscultation Heart: RRR w/out murmur, rub or gallops Abdomen: soft and nontender w/ normal bowel sounds; no bruits and no organomegaly Extremites: no peripheral edema nor any cyanosis. no calf tenderness nor any swelling. pedal pulses are normal and he has no open sores over his toes or feet Neuro: grossly normal CN exam and normal motor and sensory exam Genitalia and rectal exam deferred and not clinically indicated. Psych Mental Status: mental status grossly normal Speech and Movement: speech and movement normal Mood: congruent mood Affect: normal affect DS: Data Vitals/I&O Vitals and I&O: Vital Signs Temperature 36.4 C L 04/15/21 07:30 Temperature Source Temporal Artery Scan 04/15/21 07:30 Pulse 76 04/15/21 09:00 Pulse 78 04/15/21 09:01 Respiratory Rate 20 04/15/21 09:01 Respiratory Effort 04/15/21 07:30 Respiratory Depth Normal 04/15/21 07:30 Respiratory Pattern Normal 04/15/21 07:30 Blood Pressure 105/52 L 04/15/21 09:00 Blood Pressure Mean 65 04/15/21 09:00 Blood Pressure Position Supine 04/15/21 07:30 Pulse Oximetry 96 04/15/21 07:30 Oxygen Delivery Method Room Air 04/15/21 07:30 Oxygen Flow Rate 0 04/15/21 07:30 Pain Level 0 04/15/21 07:30 Intake & Output 04/14/21 04/15/21 04/15/21 23:59 11:59 23:59 Intake Total 2901.949 / 2901.949 2535.301 / 2535.301 Balance 2901.949 / 2901.949 2535.301 / 2535.301 Weight 93.7 kg 93.5 kg Intake: IV 2901.949 / 2901.949 1615.301 / 1615.301 Oral 920 / 920 Data Completed and Pending Labs on day of discharge: Labs from last 24 hours 04/15/21 04/15/21 04/15/21 07:50 07:50 07:50 WBC 9.59 D RBC 4.56 Hgb 13.9 D Hct 40.4 D MCV 88.6 D MCH 30.5 MCHC 34.4 RDW 12.7 Plt Count 269 D MPV 10.0 Immature Gran % 0.2 Neutrophils % 72.4 Lymphocytes % 13.1 Monocytes % 13.5 Eosinophils % 0.6 Basophils % 0.2 Nucleated RBC % 0 Absolute Neutrophils 6.94 H Absolute Lymphocytes 1.26 Absolute Monocytes 1.29 H Absolute Eosinophils 0.06 Absolute Basophils 0.02 ABG Sample Site ABG pH ABG pCO2 ABG pO2 ABG HCO3 ABG Total CO2 ABG O2 Saturation ABG Base Excess VBG pH 7.29 L VBG pCO2 38 L VBG pO2 51 VBG HCO3 18 L VBG Total CO2 17 L VBG O2 Saturation 88 VBG Base Excess -8 L VBG Lactate FiO2 Sodium Potassium Chloride Carbon Dioxide Anion Gap BUN Creatinine Estimated GFR/1.73 m2 Glucose Hemoglobin A1c 7.9 H Calcium Phosphorus Magnesium Total Bilirubin AST ALT Alkaline Phosphatase Troponin I Total Protein Albumin TSH Urine Color Urine Clarity Urine pH Ur Specific Valentine Urine Protein Urine Ketones Urine Blood Urine Nitrite Urine Bilirubin Urine Urobilinogen Ur Leukocyte Esterase Urine RBC Urine WBC Ur Epithelial Cells Urine Crystals Urine Bacteria Urine Casts Urine Mucus Urine Other Ur Culture Indicated? Urine Glucose COVID-19 Source SARS-CoV-2 (PCR) 04/15/21 04/15/21 04/15/21 07:50 04:30 02:30 WBC RBC Hgb Hct MCV MCH MCHC RDW Plt Count MPV Immature Gran % Neutrophils % Lymphocytes % Monocytes % Eosinophils % Basophils % Nucleated RBC % Absolute Neutrophils Absolute Lymphocytes Absolute Monocytes Absolute Eosinophils Absolute Basophils ABG Sample Site ABG pH ABG pCO2 ABG pO2 ABG HCO3 ABG Total CO2 ABG O2 Saturation ABG Base Excess VBG pH VBG pCO2 VBG pO2 VBG HCO3 VBG Total CO2 VBG O2 Saturation VBG Base Excess VBG Lactate FiO2 Sodium 139 Pending Pending Potassium 4.2 Pending Pending Chloride 108 H Pending Pending Carbon Dioxide 21.2 Pending Pending Anion Gap 9.8 Pending Pending BUN 9 Pending Pending Creatinine 1.2 Pending Pending Estimated GFR/1.73 m2 >= 60.00 Pending Pending Glucose 87 Pending Pending Hemoglobin A1c Calcium 8.8 Pending Pending Phosphorus Magnesium 1.9 Cancelled Total Bilirubin 0.8 AST 12 L ALT 18 Alkaline Phosphatase 74 Troponin I Total Protein 6.0 L Albumin 3.0 L TSH 0.01 L Cancelled Urine Color Urine Clarity Urine pH Ur Specific Valentine Urine Protein Urine Ketones Urine Blood Urine Nitrite Urine Bilirubin Urine Urobilinogen Ur Leukocyte Esterase Urine RBC Urine WBC Ur Epithelial Cells Urine Crystals Urine Bacteria Urine Casts Urine Mucus Urine Other Ur Culture Indicated? Urine Glucose COVID-19 Source SARS-CoV-2 (PCR) 04/15/21 04/15/2121 02:05 02:05 00:30 WBC RBC Hgb Hct MCV MCH MCHC RDW Plt Count MPV Immature Gran % Neutrophils % Lymphocytes % Monocytes % Eosinophils % Basophils % Nucleated RBC % Absolute Neutrophils Absolute Lymphocytes Absolute Monocytes Absolute Eosinophils Absolute Basophils ABG Sample Site ABG pH ABG pCO2 ABG pO2 ABG HCO3 ABG Total CO2 ABG O2 Saturation ABG Base Excess VBG pH 7.32 VBG pCO2 35 L VBG pO2 76 VBG HCO3 18 L VBG Total CO2 16 L VBG O2 Saturation 96 VBG Base Excess -8 L VBG Lactate FiO2 Sodium 139 Pending Potassium 3.7 Pending Chloride 108 H Pending Carbon Dioxide 21.4 Pending Anion Gap 9.6 Pending BUN 11 Pending Creatinine 1.4 H Pending Estimated GFR/1.73 m2 53.43 Pending Glucose 110 H D Pending Hemoglobin A1c Calcium 8.8 Pending Phosphorus Magnesium Total Bilirubin AST ALT Alkaline Phosphatase Troponin I Total Protein Albumin TSH Urine Color Urine Clarity Urine pH Ur Specific Valentine Urine Protein Urine Ketones Urine Blood Urine Nitrite Urine Bilirubin Urine Urobilinogen Ur Leukocyte Esterase Urine RBC Urine WBC Ur Epithelial Cells Urine Crystals Urine Bacteria Urine Casts Urine Mucus Urine Other Ur Culture Indicated? Urine Glucose COVID-19 Source SARS-CoV-2 (PCR) 04/14/21 04/14/21 04/14/21 23:00 22:30 21:00 WBC RBC Hgb Hct MCV MCH MCHC RDW Plt Count MPV Immature Gran % Neutrophils % Lymphocytes % Monocytes % Eosinophils % Basophils % Nucleated RBC % Absolute Neutrophils Absolute Lymphocytes Absolute Monocytes Absolute Eosinophils Absolute Basophils ABG Sample Site ABG pH ABG pCO2 ABG pO2 ABG HCO3 ABG Total CO2 ABG O2 Saturation ABG Base Excess VBG pH VBG pCO2 VBG pO2 VBG HCO3 VBG Total CO2 VBG O2 Saturation VBG Base Excess VBG Lactate FiO2 Sodium 137 Cancelled Potassium 3.8 Cancelled Chloride 106 Cancelled Carbon Dioxide 18.1 L Cancelled Anion Gap 12.9 H Cancelled BUN 11 Cancelled Creatinine 1.4 H Cancelled Estimated GFR/1.73 m2 53.43 Cancelled Glucose 177 H Cancelled Hemoglobin A1c Calcium 8.8 Cancelled Phosphorus Magnesium Total Bilirubin AST ALT Alkaline Phosphatase Troponin I < 0.05 Total Protein Albumin TSH Urine Color Urine Clarity Urine pH Ur Specific Valentine Urine Protein Urine Ketones Urine Blood Urine Nitrite Urine Bilirubin Urine Urobilinogen Ur Leukocyte Esterase Urine RBC Urine WBC Ur Epithelial Cells Urine Crystals Urine Bacteria Urine Casts Urine Mucus Urine Other Ur Culture Indicated? Urine Glucose COVID-19 Source SARS-CoV-2 (PCR) 04/14/21 04/14/21 04/14/21 21:00 19:20 19:08 WBC RBC Hgb Hct MCV MCH MCHC RDW Plt Count MPV Immature Gran % Neutrophils % Lymphocytes % Monocytes % Eosinophils % Basophils % Nucleated RBC % Absolute Neutrophils Absolute Lymphocytes Absolute Monocytes Absolute Eosinophils Absolute Basophils ABG Sample Site Left Radial ABG pH 7.20 L ABG pCO2 21 L ABG pO2 91 ABG HCO3 8 L ABG Total CO2 8 L ABG O2 Saturation 97 ABG Base Excess < -15 L VBG pH VBG pCO2 VBG pO2 VBG HCO3 VBG Total CO2 VBG O2 Saturation VBG Base Excess VBG Lactate FiO2 21 Sodium 139 Potassium 4.0 D Chloride 105 Carbon Dioxide 14.9 L Anion Gap 19.1 H BUN 13 Creatinine 1.3 Estimated GFR/1.73 m2 58.20 Glucose 185 H Hemoglobin A1c Calcium 8.7 Phosphorus 3.6 Magnesium Total Bilirubin AST ALT Alkaline Phosphatase Troponin I Total Protein Albumin TSH Urine Color Urine Clarity Urine pH Ur Specific Valentine Urine Protein Urine Ketones Urine Blood Urine Nitrite Urine Bilirubin Urine Urobilinogen Ur Leukocyte Esterase Urine RBC Urine WBC Ur Epithelial Cells Urine Crystals Urine Bacteria Urine Casts Urine Mucus Urine Other Ur Culture Indicated? Urine Glucose COVID-19 Source SARS-CoV-2 (PCR) 04/14/21 04/14/21 04/14/21 19:08 17:18 16:45 WBC RBC Hgb Hct MCV MCH MCHC RDW Plt Count MPV Immature Gran % Neutrophils % Lymphocytes % Monocytes % Eosinophils % Basophils % Nucleated RBC % Absolute Neutrophils Absolute Lymphocytes Absolute Monocytes Absolute Eosinophils Absolute Basophils ABG Sample Site ABG pH ABG pCO2 ABG pO2 ABG HCO3 ABG Total CO2 ABG O2 Saturation ABG Base Excess VBG pH VBG pCO2 VBG pO2 VBG HCO3 VBG Total CO2 VBG O2 Saturation VBG Base Excess VBG Lactate FiO2 Sodium 137 Potassium 5.4 H Chloride 104 Carbon Dioxide 11.0 L Anion Gap 22.0 H BUN 14 Creatinine 1.4 H Estimated GFR/1.73 m2 53.43 Glucose 227 H D Hemoglobin A1c Calcium 9.1 Phosphorus Magnesium Total Bilirubin AST ALT Alkaline Phosphatase Troponin I Total Protein Albumin TSH Urine Color Yellow Urine Clarity Clear Urine pH 5.5 Ur Specific Valentine >= 1.030 H Urine Protein 30 H Urine Ketones >=160 H Urine Blood Trace-intact H Urine Nitrite Negative Urine Bilirubin Negative Urine Urobilinogen 0.2 Ur Leukocyte Esterase Negative Urine RBC 0-2 Urine WBC 0-2 Ur Epithelial Cells Negative Urine Crystals Negative Urine Bacteria Negative Urine Casts Negative Urine Mucus Negative Urine Other Negative Ur Culture Indicated? No Urine Glucose 500 H COVID-19 Source Nasal/Nares SARS-CoV-2 (PCR) Negative 04/14/21 04/14/21 04/14/21 16:20 14:50 14:50 WBC RBC Hgb Hct MCV MCH MCHC RDW Plt Count MPV Immature Gran % Neutrophils % Lymphocytes % Monocytes % Eosinophils % Basophils % Nucleated RBC % Absolute Neutrophils Absolute Lymphocytes Absolute Monocytes Absolute Eosinophils Absolute Basophils ABG Sample Site ABG pH ABG pCO2 ABG pO2 ABG HCO3 ABG Total CO2 ABG O2 Saturation ABG Base Excess VBG pH 7.07 L* VBG pCO2 33 L VBG pO2 27 VBG HCO3 10 L VBG Total CO2 9 L VBG O2 Saturation 45 VBG Base Excess < -15 L VBG Lactate FiO2 Sodium Potassium Chloride Carbon Dioxide Anion Gap BUN Creatinine Estimated GFR/1.73 m2 Glucose Hemoglobin A1c Calcium Phosphorus Magnesium Total Bilirubin AST ALT Alkaline Phosphatase Troponin I < 0.05 < 0.05 Total Protein Albumin TSH Urine Color Urine Clarity Urine pH Ur Specific Valentine Urine Protein Urine Ketones Urine Blood Urine Nitrite Urine Bilirubin Urine Urobilinogen Ur Leukocyte Esterase Urine RBC Urine WBC Ur Epithelial Cells Urine Crystals Urine Bacteria Urine Casts Urine Mucus Urine Other Ur Culture Indicated? Urine Glucose COVID-19 Source SARS-CoV-2 (PCR) 04/14/21 04/14/21 04/14/21 14:50 14:50 14:50 WBC 14.55 H RBC 6.04 H Hgb 18.3 H Hct 55.5 H MCV 91.9 MCH 30.3 MCHC 33.0 RDW 12.2 Plt Count 374 MPV 10.2 Immature Gran % 0.4 Neutrophils % 90.8 Lymphocytes % 4.3 Monocytes % 4.1 Eosinophils % 0.1 Basophils % 0.3 Nucleated RBC % 0 Absolute Neutrophils 13.21 H Absolute Lymphocytes 0.63 L Absolute Monocytes 0.60 Absolute Eosinophils 0.01 Absolute Basophils 0.04 ABG Sample Site ABG pH ABG pCO2 ABG pO2 ABG HCO3 ABG Total CO2 ABG O2 Saturation ABG Base Excess VBG pH VBG pCO2 VBG pO2 VBG HCO3 VBG Total CO2 VBG O2 Saturation VBG Base Excess VBG Lactate 2.1 H FiO2 Sodium 133 L Potassium 6.9 H* Chloride 96 L Carbon Dioxide 11.1 L Anion Gap 25.9 H BUN 15 Creatinine 1.7 H Estimated GFR/1.73 m2 42.70 Glucose 308 H Hemoglobin A1c Calcium 10.3 H Phosphorus Magnesium 2.4 Total Bilirubin 0.8 AST 16 ALT 33 Alkaline Phosphatase 132 H Troponin I Total Protein 10.0 H Albumin 5.1 H TSH Urine Color Urine Clarity Urine pH Ur Specific Valentine Urine Protein Urine Ketones Urine Blood Urine Nitrite Urine Bilirubin Urine Urobilinogen Ur Leukocyte Esterase Urine RBC Urine WBC Ur Epithelial Cells Urine Crystals Urine Bacteria Urine Casts Urine Mucus Urine Other Ur Culture Indicated? Urine Glucose COVID-19 Source SARS-CoV-2 (PCR) [facility] Medical History (Updated 04/15/21 @ 22:16 by Barney Villalta) Diabetic ketoacidosis, type I (09/14/14) DKA (diabetic ketoacidoses) HLD (hyperlipidemia) Hypothyroidism Leukocytosis (09/14/14) Multiple nevi CYNTHIA (obstructive sleep apnea) hasn't been a problem since he lost weight PDR (proliferative diabetic retinopathy) procedure around 1995 for repair Type 1 diabetes Family History Mother Depression Father No problems noted. Sister No problems noted. Son No problems noted. Son No problems noted. Daughter No problems noted. Maternal Grandfather , 80's No problems noted. Paternal Grandfather , 92 No problems noted. Maternal Grandmother , 80's No problems noted. Paternal Grandmother , 60's No problems noted. Social History Smoking/Tobacco Use Status: Never Second Hand Exposure: No Smoking risk assessment performed?: Yes Alcohol Intake: never Drug use: Never Caregiver/Support person: No Household members: spouse and children Housing: house Communication Needs: None Do you need help understanding health information?: Rarely Pets and animals: Yes Pets and animals: cat(s) Sexually active: Yes Do you think of yourself as: straight/heterosexual Current gender identity: male What is your relationship status?: How often do you talk on the phone with friends or family?: once per week How often do you get together with friends or relatives?: once per week How often do you attend judaism or hinduism services?: 4 or more times per year Do you belong to any clubs or organized social groups?: no Panel score (0-1 are the most socially isolated patients): 2 What type of physical activity do you participate in: walking Duration: < 15 minutes/day Frequency: 3-4 times per week Samia/Temple: Yarsani Special samia needs: No Seatbelt use: always Helmet use: Yes Helmet use: always Drive intox or ride w/intox oil transport driver: No Do you feel safe at home: Yes Do you feel safe in your relationship?: Yes
== END 2021-04-15 12:45 | disposition home or self-care (01) | DRG 638 ==
LOC: ER 16:24 → ICU 17:53
PROVIDERS: Internal Medicine; Admitting Provider Internal Medicine; Emergency Provider Physician Assistant; PCP Nurse Practitioner; Visit Provider Internal Medicine
DX: E10.10 Type 1 diabetes mellitus with ketoacidosis without coma (principal); N17.9 Acute kidney failure, unspecified; E10.319 Type 1 diabetes mellitus with unspecified diabetic retinopathy without macular edema; E86.0 Dehydration; E03.9 Hypothyroidism, unspecified; D72.823 Leukemoid reaction; E78.5 Hyperlipidemia, unspecified; G47.33 Obstructive sleep apnea (adult) (pediatric); Z20.822 Contact with and (suspected) exposure to COVID-19
CPT/HCPCS: 36415; 36416; 80048; 80053; 82805; 82962; 87635; 93005; 96361; 96374; 96375; 99285; J1650; 36600; 81003; 81015; 83036; 83605; 83735; 84100; 84443; 84484; 85025; 93010; 99238; 99291; J2405

== ENCOUNTER 2021-05-07 02:35 | Outpatient (CLI) | payer BC, SELFPAY ==
[2021-05-07 12:57] LABS: TSH 17.86 uIU/mL (0.36-3.74)
== END 2021-05-07 02:36 | disposition home or self-care (01) ==
PROVIDERS: PCP Nurse Practitioner; Visit Provider Nurse Practitioner
DX: E03.9 Hypothyroidism, unspecified (principal)
CPT/HCPCS: 36415; 84443

== ENCOUNTER 2021-06-21 02:35 | Outpatient (CLI) | payer BC, SELFPAY ==
[2021-06-21 10:29] LABS: TSH 0.99 uIU/mL (0.36-3.74)
== END 2021-06-21 02:36 | disposition home or self-care (01) ==
LOC: LBO 02:35
PROVIDERS: PCP Nurse Practitioner; Visit Provider Nurse Practitioner
DX: E03.9 Hypothyroidism, unspecified (principal); E10.319 Type 1 diabetes mellitus with unspecified diabetic retinopathy without macular edema
CPT/HCPCS: 36415; 82565; 84443

== ENCOUNTER 2021-09-18 00:59 | Outpatient (CLI) | payer BC, SELFPAY ==
--- NOTE | 2021-09-18 14:00 | NS.NUTBLAN_ITS ---
Thor was referred for diabetes self management education. PMH: DM 1 since 1977. 5'10 222 lbs. DM meds: 32 units lantus q HS, Lispro 306 units at meals. Most recent A1C: 7.6% indicating good glycemic control. Thor reports he is overall very healthy. Thor is very knowledgeable about carb counting, correction factors. He reports having DKA three times in last 10 years, usually associated with illness. Continues to have hypo and hyper glycemic awareness. Here today to get Dexcom 6 continuous glucose monitor. Thor was able to place his own sensor and insert transmitter. Using his iphone as reader and willing to be monitored remotely by sign writer letterer or painter. Will follow up with Aj Mckeon at [facility] to start process of getting CGM covered by is insurance. Eligible for CGM as takes insulin 4 times daily. Will follow up with Thor in 10 days to assess glycemic management and answer questions/concerns re: CGM.
== END 2021-09-18 01:00 | disposition home or self-care (01) ==
LOC: DS 00:59
PROVIDERS: PCP Nurse Practitioner; Visit Provider Dietitian, Registered
DX: E10.9 Type 1 diabetes mellitus without complications (principal); Z79.4 Long term (current) use of insulin; Z71.3 Dietary counseling and surveillance
CPT/HCPCS: 97802

== ENCOUNTER 2022-09-10 03:32 | Outpatient (CLI) | payer BC, SELFPAY ==
[2022-09-10 17:13] LABS: ALT 34 U/L (16-63); AST 22 U/L (15-37); Albumin 3.5 g/dL (3.4-5.0); Alkaline Phosphatase 78 U/L (46-116); BUN 11 mg/dL (7-18); Bilirubin, Total 0.4 mg/dL (0.2-1.0); CREATININE 1.1 mg/dL (0.70-1.30); Calcium 9.1 mg/dL (8.5-10.1); Chloride 104 mmol/L (98-107); Estimated GFR 80.77 (mL/min/1.73m2); Glucose 321 mg/dL (74-106); Sodium 139 mmol/L (136-145); TSH (W/Ref FT4) 0.01 uIU/mL (0.36-3.74); Total Protein 6.9 g/dL (6.4-8.2)
[2022-09-10 18:13] LABS: FREE T4 1.66 ng/dL (0.76-1.46)
[2022-09-12 10:00] LABS: Hepatitis C Ab w Rflx HCV PCR Negative (Negative)
[2022-09-12 10:15] LABS: HIV-1/2 Ag & Ab Screen Negative (Negative)
== END 2022-09-10 03:33 | disposition home or self-care (01) ==
LOC: LBO 03:32
PROVIDERS: PCP Nurse Practitioner Family; Visit Provider Nurse Practitioner Family
DX: E03.9 Hypothyroidism, unspecified (principal)
CPT/HCPCS: 36415; 80053; 86803; 87389; 84439; 84443

== ENCOUNTER 2022-11-18 02:59 | Outpatient (CLI) | payer BC, SELFPAY ==
[2022-11-18 12:53] LABS: TSH (W/Ref FT4) 0.02 uIU/mL (0.36-3.74)
[2022-11-18 13:18] LABS: FREE T4 1.81 ng/dL (0.76-1.46)
== END 2022-11-18 03:00 | disposition home or self-care (01) ==
LOC: LOS 02:59
PROVIDERS: PCP Nurse Practitioner Family; Visit Provider Nurse Practitioner Family
DX: E03.9 Hypothyroidism, unspecified (principal); E78.5 Hyperlipidemia, unspecified
CPT/HCPCS: 36415; 84439; 84443

== ENCOUNTER 2023-02-19 23:16 | Inpatient (IN) | payer BC, SELFPAY ==
[2023-02-19 23:20] VITALS: BP 142/72; PULSE 90; RESP 18; TEMP 37.2; O2SAT 93
--- NOTE | 2023-02-19 23:30 | DI.CT_ITS ---
Exam(s) CT PELVIC W EXAM: CT PELVIC W CLINICAL HISTORY: perianal vs perirectal abscess. TECHNIQUE: Imaging Protocol: Axial computed tomography images with coronal and sagittal reformatted images were created and reviewed CONTRAST MATERIAL: Intravenous: Omnipaque 100cc Oral: None COMPARISON: CT CT BRAIN CTA from 03/25/2020 FINDINGS: PELVIS: FINDING: There is a large left perianal fluid collection abundant surrounding fat streaking extending into the fat the buttock as well as anteriorly towards the base penis. This abnormal fluid collecti on measures approximately 8 cm AP by 3 cm wide by 7 cm cephalocaudal. It does not appear completely encapsulated. Does not contain air. There is no soft tissue gas evident and no osseous involvement. Also no significant muscular involvement at this time. OSSEOUS:No pelvic or hip fractures evident. No significant osseous lesions. ANTERIOR ABDOMINAL WALL/GI:No evidence of bowel obstruction. No evidence of appendicitis.No evidence of sigmoid diverticulitis.Calcified left perirectal lymph node noted LYMPH NODES: As above. REPRODUCTIVE: Prostate size normal. Seminal vesicles unremarkable. Small bilateral hydroceles parti ally imaged. URINARY BLADDER: Uniform thickening of the urinary bladder wall which is probably related to under di stension. IMPRESSION: 1. There is a prominent left perianal abscess evident, as described above. There is abundant streaki ng in the surrounding fat. There is no gas in the soft tissues at this time. No osseous involvement . First read by [facility]. RADIATION DOSE DELIVERED: 499.97mGy.cm Total DLP DATA REPOSITORY: All CT scans at this facility are submitted to the National Radiology Data Registry (NRDR) Dose Index Registry (DIR) with the [employer] (A[employer]). RADIATION OPTIMIZATION: All CT scans at this facility use at least one of these dose optimization te chniques: automated exposure control; mA and/or kV adjustment per patient size (includes targeted exa ms where dose is matched to clinical indication); or iterative reconstruction.
--- NOTE | 2023-02-19 23:37 | ED.GENADUL_ITS ---
Discharge Plan Disposition Patient Disposition: Admit to [facility] Discharge Details Clinical Impression: Abscess, Cellulitis Primary Care Provider: Joao Abernathy ED Provider: Xochitl Zuniga Home Meds and New Rx's Prescriptions: No Action lisinopril 5 mg tablet 2.5 mg PO DAILY Qty: 90 3RF atorvastatin 80 mg tablet 80 mg PO QPM Qty: 90 4RF (DME) Dexcom G6 Cross Tie Tram Loader Misc See Rx Instructions .Route Qty: 1 11RF Rx Instructions: As directed Lantus Solostar U-100 Insulin 100 unit/mL (3 mL) insulin pen 32 unit SC DAILY Qty: 15 3RF (DME) Dexcom G6 Sensor Device See Rx Instructions .Route Qty: 3 11RF Rx Instructions: As directed (DME) Dexcom G6 Transmitter Device See Rx Instructions .Route Qty: 1 11RF Rx Instructions: As directed insulin lispro [Humalog KwikPen Insulin] 100 unit/mL insulin pen See Rx Instructions .ROUTE .COMPLEX MDD 50 units Qty: 15 4RF Rx Instructions: sliding scale as directed levothyroxine 150 mcg tablet 150 mcg PO DAILY Qty: 90 0RF Glucagon Emergency Kit (human) 1 MG kit 1 mg IJ DIRECTED Qty: 1 0RF Rx Instructions: use prn severe hypoglycemia. may repeat dose in 15 minutes. call 911 if no r esponse (DME) Keto-Diastix 1 EACH strip 1 ea Miscellaneous DIRECTED Qty: 50 0RF Rx Instructions: use prn to test urine in setting of severe hypoglycemia, call physician if positive test. Medical Decision Making 52yo M with HTN, hypothyroid, DM on insulin, presenting for lesion on buttocks, worsening for a week, now with general malaise. Vital signs reasurring on arrival. Does not appear septic. Large indurated erythematous area in perirectal area extending onto buttock, no drainage, no crepitus, no pain out of proportion. Lower suspicion for necrotizing soft tissue infection/Shanique's. Likely abscess wtih surrounding cellulitis, perianal vs deeper. IV fentanyl with IV zofran for symptom control. Started of IV zosyn & zyvox, blood cultures sent. Labs reviewed as above, significantly elevated CRP, slight leukocytosis, elevated blood glucose, slightly elevated Cr, normal sodium. Did give himself insulin at home just prior to arrival, will defer additional for now. LRINEC score 6, intermediate risk for necrotiizing soft tissue infection. CT pelvis ordered and reviewed, large perirectal abscess, agree with radiology read below. Premedicated with 25mcg of fentanyl and abcess drained at bedside under ultrasound guidance; copious thin fluid expressed. Continues with considerable surrounding induration. Likely component of cellulitis however based on size of abscess on CT it is very possible there is a remaining deeper fluid collection, though he does report that his pain is much improved. Warrants admission for continued antibiotics and reassessment. Accepted by hospitalist Dr. Chakraborty and bridging orders placed at his request. Imaging Data Radiologic Study: Imaging: CT Scan Radiologist's impression: IMPRESSION: 1. ? Large left perianal abscess. Lab Data Lab results reviewed: Yes I reviewed the patient's lab results. Labs: Laboratory Tests Range/Units 02/19/23 02/19/23 23:35 23:35 WBC (4.4-10.8) 10^3/uL 16.95 H RBC (4.36-5.78) 10^6/uL 4.39 Hgb (13.5-17.5) g/dL 13.8 Hct (40.0-50.0) % 39.3 L MCV (80-95) fL 90 MCH (27.0-33.0) pg 31.4 MCHC (32.0-36.0) % 35.1 RDW (11.8-14.1) % 12.6 Plt Count (130-400) 10^3/uL 334 MPV (8.0-11.0) fL 9.7 Immature Gran % 0.5 Neutrophils % 81.6 Lymphocytes % 8.5 Monocytes % 8.5 Eosinophils % 0.5 Basophils % 0.4 Nucleated RBC % (0.0-0.3) % 0.0 Absolute Neutrophils (1.2-6.7) 10^3/uL 13.83 H Absolute Lymphocytes (1.2-3.4) 10^3/uL 1.44 Absolute Monocytes (0.1-0.8) 10^3/uL 1.44 H Absolute Eosinophils (0.0-0.7) 10^3/uL 0.08 Absolute Basophils (0.0-0.2) 10^3/uL 0.07 Sodium (136-145) mmol/L 136 Potassium (3.5-5.1) mmol/L 3.8 Chloride (98-107) mmol/L 98 Carbon Dioxide (21.0-32.0) mmol/L 23.4 Anion Gap (3-11) mmol/L 14.6 H BUN (7-18) mg/dL 17 Creatinine (0.70-1.30) mg/dL 1.4 H Est GFR (CKD-EPI 2020) (mL/min/1.73m2) 60.47 Glucose (74-106) mg/dL 247 H Calcium (8.5-10.1) mg/dL 9.2 Total Bilirubin (0.2-1.0) mg/dL 0.9 AST (15-37) U/L 10 L ALT (16-63) U/L 12 L Alkaline Phosphatase (46-116) U/L 88 C-Reactive Protein (0.0-0.3) mg/dL > 25.00 H Total Protein (6.4-8.2) g/dL 6.8 Albumin (3.4-5.0) g/dL 2.7 L HPI General Mode of arrival: ambulatory . Date/Time Provider Initiated Documentation: 02/19/23 23:30 . Limitations to Documentation: no limitations . Information obtained by: patient and family . HPI Narrative: 52yo M with HTN, hypothyroid, DM on insulin, presenting for lesion on buttocks. First noted a pimple about a week ago, has been worsening since then. Feels that it may be beginning to drain. Today felt generally unwell and out of it, decreased appetite. Blood sugar was elevated at ~300 this evening which is unusal for him. No fevers, chills, nausea, vomiting, or abdominal pain. Related Data Home Medications Medication Instructions Recorded Confirmed glucagon (human recombinant) 1 mg 1 mg IJ DIRECTED ##1 09/16/14 02/19/23 injection kit (Glucagon Emergency Kit (human-recomb)) urine glucose-ketones test #50 strips 09/16/14 02/19/23 (Keto-Diastix strips) atorvastatin 80 mg tablet 80 mg PO QPM #90 tabs 02/16/21 02/19/23 blood-glucose meter,continuous #1 ea 09/27/21 02/19/23 ([employer] G6 Cross Tie Tram Loader) lisinopril 5 mg tablet 2.5 mg PO DAILY #90 tabs 06/18/22 02/19/23 insulin glargine 100 unit/mL (3 32 unit (0.32 mL) subcut DAILY #15 07/19/22 02/19/23 mL) subcutaneous pen (Lantus mL Solostar U-100 Insulin) blood-glucose sensor (Dexcom G6 #3 ea 10/07/22 02/19/23 Sensor device) blood-glucose transmitter (Dexcom #1 ea 10/07/22 02/19/23 G6 Transmitter device) insulin lispro 100 unit/mL See Rx Instructions .Route 11/12/22 02/19/23 subcutaneous pen (Humalog KwikPen .COMPLEX #15 mL (U-100) Insulin) levothyroxine 150 mcg tablet 150 mcg PO DAILY #90 tabs 11/25/22 02/19/23 Previous Rx's Medication Instructions Recorded glucagon (human recombinant) 1 mg 1 mg IJ DIRECTED ##1 09/16/14 injection kit (Glucagon Emergency Kit (human-recomb)) urine glucose-ketones test #50 strips 09/16/14 (Keto-Diastix strips) atorvastatin 80 mg tablet 80 mg PO QPM #90 tabs 02/16/21 blood-glucose meter,continuous #1 ea 09/27/21 (Dexcom G6 Cross Tie Tram Loader) lisinopril 5 mg tablet 2.5 mg PO DAILY #90 tabs 06/18/22 insulin glargine 100 unit/mL (3 32 unit (0.32 mL) subcut DAILY #15 07/19/22 mL) subcutaneous pen (Lantus mL Solostar U-100 Insulin) blood-glucose sensor (Dexcom G6 #3 ea 10/07/22 Sensor device) blood-glucose transmitter (Dexcom #1 ea 10/07/22 G6 Transmitter device) insulin lispro 100 unit/mL See Rx Instructions .Route 11/12/22 subcutaneous pen (Humalog KwikPen .COMPLEX #15 mL (U-100) Insulin) levothyroxine 150 mcg tablet 150 mcg PO DAILY #90 tabs 11/25/22 Allergies Allergy/AdvReac Type Severity Reaction Status Date / Time No Known Allergies Allergy Verified 02/19/23 23:25 General Stated Complaint: RashLesion ALBAN: 3 Review of Systems Narrative: see [facility] PFSH All Active Problems (Updated 02/20/23 @ 03:31 by Xochitl Zuniga MD) Abscess (Acute) Cellulitis (Acute) Contact dermatitis (Acute) Hypothyroidism (Chronic) HLD (hyperlipidemia) (Acute) Type 1 diabetes (Chronic) Multiple nevi (Acute) Medical History Diabetic ketoacidosis, type I (09/14/14) DKA (diabetic ketoacidoses) 05/2021- presented with NL blood sugar and high urine keytones Leukocytosis (09/14/14) CYNTHIA (obstructive sleep apnea) hasn't been a problem since he lost weight PDR (proliferative diabetic retinopathy) procedure around 1995 for repair Family History Mother Depression Father No problems noted. Sister No problems noted. Son No problems noted. Son No problems noted. Daughter No problems noted. Maternal Grandfather , 80's No problems noted. Paternal Grandfather , 92 No problems noted. Maternal Grandmother , 80's No problems noted. Paternal Grandmother , 60's No problems noted. Social History Smoking/Tobacco Use Status: Never Second Hand Exposure: No Smoking risk assessment performed?: Yes Alcohol Intake: never Drug use: Never Caregiver/Support person: No Household members: spouse and children Housing: house Communication Needs: None Do you need help understanding health information?: Rarely Pets and animals: Yes Pets and animals: cat(s) Sexually active: Yes Do you think of yourself as: straight/heterosexual Current gender identity: male What is your relationship status?: How often do you talk on the phone with friends or family?: once per week How often do you get together with friends or relatives?: once per week How often do you attend restorationism or mandaen services?: 4 or more times per year Do you belong to any clubs or organized social groups?: no Panel score (0-1 are the most socially isolated patients): 2 What type of physical activity do you participate in: walking Duration: < 15 minutes/day Frequency: 3-4 times per week Samia/Baptist: Hindu Special samia needs: No Seatbelt use: always Helmet use: Yes Helmet use: always 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 Head: Normocephalic, atraumatic Neck: Trachea midline, Neck supple. ENT: MMM. No oropharygeal lesions or exudate. Cardiac: RRR, no murmurs appreciated Resp: No respiratory distress. CTAB. Abd: Soft, non-distended, nontender : No suprapubic tenderness. Buttocks/Perianal: Right perianal area with large area of erythema and induration, no active drainage. Otherwise normal external anal exam. Extremities: No deformities. No peripheral edema. Neurologic: GCS 15. Moves all extremities freely against gravity Course Vital Signs Vital signs: Vital Signs Temperature 37.2 C 02/19/23 23:20 Pulse 90 02/19/23 23:20 Respiratory Rate 18 02/19/23 23:20 Blood Pressure 142/72 H 02/19/23 23:20 Pulse Oximetry 93 02/19/23 23:20 Temperature 37.2 C 02/19/23 23:20 Temperature Source Temporal Artery Scan 02/19/23 23:20 Pulse 90 02/19/23 23:20 Respiratory Rate 18 02/19/23 23:20 Respiratory Effort Normal, Non-Labored 02/19/23 23:33 Blood Pressure 142/72 H 02/19/23 23:20 Blood Pressure Position Supine 02/19/23 23:20 Pulse Oximetry 93 02/19/23 23:20 Oxygen Delivery Method Room Air 02/19/23 23:20 Oxygen Flow Rate 0 02/19/23 23:20 Procedures Abscess I/D Site: Dena-rectal Side (if applicable): Left Sedation/analgesia: Fentanyl Local Anesthetic: Lidocaine 2% Amount of anesthesia used (mL): 8 Technique: Incised with #11 Blade Amount of fluid expressed (mL): 100 Irrigation: Yes Packing used?: Iodoform
[2023-02-19 23:43] LABS: Abs Immature Grans 0.08 10^3/uL (0.0-0.06); Absolute Basophil Count 0.07 10^3/uL (0.0-0.2); Absolute Lymphocyte Count 1.44 10^3/uL (1.2-3.4); Absolute Monocyte Count 1.44 10^3/uL (0.1-0.8); Absolute Neutrophil Count 13.83 10^3/uL (1.2-6.7); Basophils % 0.4; Eosinophils % 0.5; HCT 39.3 % (40.0-50.0); HGB 13.8 g/dL (13.5-17.5); Immature Grans % 0.5; Lymphocytes % 8.5; MCH 31.4 pg (27.0-33.0); MCHC 35.1 % (32.0-36.0); MCV 90 fL (80-95); MPV 9.7 fL (8.0-11.0); Monocytes % 8.5; Neutrophils % 81.6; Platelet Count 334 10^3/uL (130-400); RBC 4.39 10^6/uL (4.36-5.78); RDW 12.6 % (11.8-14.1); RDW-SD 41.8 fL; WBC 16.95 10^3/uL (4.4-10.8)
[2023-02-19 23:44] LABS: Absolute Eosinophil Count 0.08 10^3/uL (0.0-0.7)
[2023-02-19] MEDS: Ondansetron 4 MG/2 ML VIAL IVP (23:48)
[2023-02-19] MEDS: fentaNYL 100 MCG/2 ML VIAL 50 MCG IVP (23:48)
[2023-02-19] MEDS: Normal Saline - Diluent 50 ML VIAL IJ (23:52)
[2023-02-19] MEDS: Omnipaque 350 MG/ML 100 ML BTL IJ (23:52)
[2023-02-19] MEDS: Normal Saline Flush 10 ML SYR IVP (23:53)
[2023-02-19 23:57] LABS: ALT 12 U/L (16-63); AST 10 U/L (15-37); Albumin 2.7 g/dL (3.4-5.0); Alkaline Phosphatase 88 U/L (46-116); Anion Gap 14.6 mmol/L (3-11); BUN 17 mg/dL (7-18); Bilirubin, Total 0.9 mg/dL (0.2-1.0); C-Reactive Protein > 25.00 mg/dL (0.0-0.3); CO2 23.4 mmol/L (21.0-32.0); CREATININE 1.4 mg/dL (0.70-1.30); Calcium 9.2 mg/dL (8.5-10.1); Chloride 98 mmol/L (98-107); Estimated GFR 60.47 (mL/min/1.73m2); Glucose 247 mg/dL (74-106); Potassium 3.8 mmol/L (3.5-5.1); Sodium 136 mmol/L (136-145); Total Protein 6.8 g/dL (6.4-8.2)
[2023-02-20] VITALS (35 sets, daily range): BP systolic 94–132; BP diastolic 41–70; PULSE 72–95; RESP 13–25; TEMP 36.4–37.7; O2SAT 93–98; BMI 29.5
[2023-02-20] MEDS: Normal Saline 50 ML (00:05)
[2023-02-20] MEDS: PIPERACILLIN/TAZO 4.5 GM in Normal Saline 100 ML IVPB ×4 (01:12→20:56)
--- NOTE | 2023-02-20 01:13 | DI.VRAD_ITS ---
PROCEDURE INFORMATION: Exam: CT Pelvis With Contrast Exam date and time: 02/20/2023 12:09 AM Age: 52 years old Clinical indication: Condition or disease; Patient HX: Perianal v/s perirectal abscess TECHNIQUE: Imaging protocol: Computed tomography of the pelvis with contrast. Total images: 1019 Radiation optimization: All CT scans at this facility use at least one of these dose optimization techniques: automated exposure control; mA and/or kV adjustment per patient size (includes targeted exams where dose is matched to clinical indication); or iterative reconstruction. Contrast material: OMNIPAQUE 350; Contrast volume: 100 ml; Contrast route: INTRAVENOUS (IV); COMPARISON: No relevant prior studies available. FINDINGS: Stomach and bowel: Mild wall thickening along the left side of the anus. Visualized bowel is otherwise unremarkable. No perirectal stranding. Large left perianal partially rim enhancing fluid collection measuring approximally 8 x 6 x 3 cm. No air within the collection. Appendix: No evidence of appendicitis. Intraperitoneal space: No free air or free fluid. Lymph nodes: No enlarged lymph nodes. Urinary bladder: No wall thickening. Reproductive: Small hydroceles. Bones/joints: No bony destruction. Soft tissues: No soft tissue gas. Significant subcutaneous stranding in the left perianal fossa, perineum extending to the penile base and left medial gluteal fold. IMPRESSION: 1. Large left perianal abscess. 2. THIS REPORT CONTAINS FINDINGS THAT MAY BE CRITICAL TO PATIENT CARE. The findings were verbally communicated via telephone conference with Xochitl Zuniga at 1:11 AM EDT on 02/20/2023. The findings were acknowledged and understood. Dictated and Authenticated by: Regulo Meeks MD. Ordering:SONIA Leung MD
[2023-02-20] MEDS: fentaNYL 100 MCG/2 ML VIAL 25 MCG IVP ×2 (01:34→14:53)
[2023-02-20] MEDS: Lidocaine 2% Multi-Dose 50 ML VIAL (02:17)
[2023-02-20] MEDS: LINEZOLID 600 MG/300 ML BAG 300 MG IVPB ×2 (02:25→13:35)
[2023-02-20] MEDS: Normal Saline 1,000 ML 1000 ML IV (03:03)
--- NOTE | 2023-02-20 06:08 | W.PM.HP.N ---
Date of service: 02/20/23 Time of Service: 05:00 Assessment and Plan Assessment and plan (1) Cellulitis: Start date: 02/13/23 Status: Acute Assessment and plan: This is a 52-year-old gentleman who is an insulin-dependent diabetic usually pretty well controlled presenting with a 1 week history of progressive abscess over left buttock. This was I&D in the emergency room and surgery will be consulted to evaluate. He will be admitted for IV Zosyn and Zyvox which was initiated by the ED physician. He does have an elevated WBC but no fever and early signs and symptoms of decompensation with his diabetes but no true DKA. He will be IV hydrated while treating his infection and being evaluated for further drainage if needed. He is a full code. (2) Perirectal abscess: Start date: 02/20/23 Status: Acute Assessment and plan: I&D and further evaluation by surgery for possible further drainage. Watch closely for progression to fasciitis. (3) Type 1 diabetes: Status: Chronic Assessment and plan: Glucometer measurements with tracing insulin coverage before meals and at bedtime while in the hospital. IV hydration because of increased anion gap and increased creatinine though the patient does not appear to be acidotic or progressing toward DKA at this time. He is at risk. Qualifiers: Diabetes mellitus complication detail: with diabetic retinopathy Diabetes mellitus complication status: with ophthalmic complications Diabetes mellitus macular edema: without macular edema Diabetic retinopathy severity: with unspecified retinopathy severity Laterality: unspecified laterality Qualified Code(s): E10.319 - Type 1 diabetes mellitus with unspecified diabetic retinopathy without macular edema (4) CYNTHIA (obstructive sleep apnea): Assessment and plan: Patient should have CPAP on home settings if on positive pressure treatment at home. Respiratory therapy to evaluate. (5) Hypothyroidism: Status: Chronic Assessment and plan: Continue outpatient supplement. Qualifiers: Hypothyroidism type: acquired Qualified Code(s): E03.9 - Hypothyroidism, unspecified (6) HLD (hyperlipidemia): Assessment and plan: Continue outpatient dosing of atorvastatin. Qualifiers: Hyperlipidemia type: mixed hyperlipidemia Qualified Code(s): E78.2 - Mixed hyperlipidemia History of Present Illness History of Present Illness Chief Complaint: 1 week history of left buttock pimple now with tenderness and swelling. Narrative: This is a 52-year-old male patient who is a diabetic insulin-dependent since he was a teenager presenting with a 1 week history of a pimple on his left buttock which has progressed to a swollen area which is very tender though has not had painful bowel movements. He reported to the ED because of the increasing size of the lesion and not feeling well in general though he did not have fever or rigors. He states that his diabetes has been slightly out of control and he may not have been eating and drinking as well as baseline. The patient offers no further history and has not had anything similar to this in the past. He denies any history of ulcerative colitis or Crohn's disease. He is a full code. In the ED the patient's evaluation did reveal slightly exacerbated diabetic state but no overt DKA though anion gap was elevated and his creatinine was above his baseline. He had no fever but did have an elevated WBC. There was no metabolic acidosis. CT scan was positive for large perirectal abscess which did have I&D performed by the ED physician with low suspicion for necrotizing fasciitis. Surgical consultation will be obtained. Review of Systems Narrative: 13 point review of systems otherwise unrevealing or stable. PFS All Active Problems (Updated 02/20/23 @ 06:46 by Leobardo Chakraborty) Perirectal abscess (Acute) Cellulitis (Acute) Contact dermatitis (Acute) Hypothyroidism (Chronic) Type 1 diabetes (Chronic) Multiple nevi (Acute) Medical History (Updated 02/20/23 @ 06:46 by Leobardo Chakraborty) Diabetic ketoacidosis, type I (09/14/14) DKA (diabetic ketoacidoses) 05/2021- presented with NL blood sugar and high urine keytones HLD (hyperlipidemia) Leukocytosis (09/14/14) CYNTHIA (obstructive sleep apnea) hasn't been a problem since he lost weight PDR (proliferative diabetic retinopathy) procedure around 1995 for repair Family History Mother Depression Father No problems noted. Sister No problems noted. Son No problems noted. Son No problems noted. Daughter No problems noted. Maternal Grandfather , 80's No problems noted. Paternal Grandfather , 92 No problems noted. Maternal Grandmother , 80's No problems noted. Paternal Grandmother , 60's No problems noted. Social History Smoking/Tobacco Use Status: Never Second Hand Exposure: No Smoking risk assessment performed?: Yes Alcohol Intake: never Drug use: Never Caregiver/Support person: No Household members: spouse and children Housing: house Communication Needs: None Do you need help understanding health information?: Rarely Pets and animals: Yes Pets and animals: cat(s) Sexually active: Yes Do you think of yourself as: straight/heterosexual Current gender identity: male What is your relationship status?: How often do you talk on the phone with friends or family?: once per week How often do you get together with friends or relatives?: once per week How often do you attend tenriism or anabaptist services?: 4 or more times per year Do you belong to any clubs or organized social groups?: no Panel score (0-1 are the most socially isolated patients): 2 What type of physical activity do you participate in: walking Duration: < 15 minutes/day Frequency: 3-4 times per week Samia/Sabianism: Episcopalian Special samia needs: No Seatbelt use: always Helmet use: Yes Helmet use: always Drive intox 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 Do you feel safe at home: Yes Do you feel safe in your relationship?: Yes Meds Allergies and Home Medications Allergies Allergy/AdvReac Type Severity Reaction Status Date / Time No Known Allergies Allergy Verified 02/19/23 23:25 Home Medications Medication Instructions Recorded Confirmed Type glucagon (human recombinant) 1 mg 1 mg IJ DIRECTED ##1 09/16/14 02/19/23 Rx injection kit (Glucagon Emergency Kit (human-recomb)) urine glucose-ketones test #50 strips 09/16/14 02/19/23 Rx (Keto-Diastix strips) atorvastatin 80 mg tablet 80 mg PO QPM #90 tabs 02/16/21 02/19/23 Rx blood-glucose meter,continuous #1 ea 09/27/21 02/19/23 Rx (Dexcom G6 Service Tester) lisinopril 5 mg tablet 2.5 mg PO DAILY #90 tabs 06/18/22 02/19/23 Rx insulin glargine 100 unit/mL (3 32 unit (0.32 mL) subcut DAILY #15 07/19/22 02/19/23 Rx mL) subcutaneous pen (Lantus mL Solostar U-100 Insulin) blood-glucose sensor (Dexcom G6 #3 ea 10/07/22 02/19/23 Rx Sensor device) blood-glucose transmitter (Dexcom #1 ea 10/07/22 02/19/23 Rx G6 Transmitter device) insulin lispro 100 unit/mL See Rx Instructions .Route 11/12/22 02/19/23 Rx subcutaneous pen (Humalog KwikPen .COMPLEX #15 mL (U-100) Insulin) levothyroxine 150 mcg tablet 150 mcg PO DAILY #90 tabs 11/25/22 02/19/23 Rx Exam Narrative Exam Narrative: General: Patient appears appropriate for age, alert and oriented x3 with flattened affect and fair eye contact. He is in no acute distress lying on his right side. He is moderately obese. HEENT: Normocephalic, eyes with pupils equal and react to light symmetrically, extraocular movement tact and sclera anicteric. Oropharynx with moist mucosa and fair dentition. Neck: Supple without JVD. Back: Normal posture without CVA tenderness. Lungs: Fair aeration clear to auscultation and percussion. No expiratory wheeze. No focalizing rales or rhonchi Heart: Regular rate and rhythm with no murmurs gallops appreciated. Abdomen: Obese contour, soft nontender to palpation with no palpable hepatosplenomegaly. Genitalia/rectal: Deferred to surgeon to re-examine rectum status post I&D by ED physician with packing and low suspicion for fasciitis by ED physician. Extremities: Without clubbing, cyanosis or pitting edema. Peripheral pulses intact. Skin: Normal color, warm and dry. Lesion over left buttock post I&D with bloody gauze overlying. Neuro: Cranial nerves II through XII grossly intact, no focalizing motor deficits. No tremor. Psych: Flattened affect with normal mood. Remote and recent memory appear to be grossly intact with patient having no abnormal thought processes. Results Imaging Imaging Studies: Exam: CT Pelvis With Contrast Exam date and time: 02/20/2023 12:09 AM Age: 52 years old Clinical indication: Condition or disease; Patient HX: Perianal v/s perirectal abscess TECHNIQUE: Imaging protocol: Computed tomography of the pelvis with contrast. Total images: 1019 Radiation optimization: All CT scans at this facility use at least one of these dose optimization techniques: automated exposure control; mA and/or kV adjustment per patient size (includes targeted exams where dose is matched to clinical indication); or iterative reconstruction. Contrast material: OMNIPAQUE 350; Contrast volume: 100 ml; Contrast route: INTRAVENOUS (IV);? COMPARISON: No relevant prior studies available. FINDINGS: Stomach and bowel: Mild wall thickening along the left side of the anus. Visualized bowel is otherwise unremarkable. No perirectal stranding. Large left perianal partially rim enhancing fluid collection measuring approximally 8 x 6 x 3 cm. No air within the collection. Appendix: No evidence of appendicitis. Intraperitoneal space: No free air or free fluid. Lymph nodes: No enlarged lymph nodes. Urinary bladder: No wall thickening. Reproductive: Small hydroceles. Bones/joints: No bony destruction. Soft tissues: No soft tissue gas. Significant subcutaneous stranding in the left perianal fossa, perineum extending to the penile base and left medial gluteal fold. IMPRESSION: 1. ? Large left perianal abscess Labs 02/19/23 23:35 02/19/23 23:35 Labs: Laboratory Results - last 24 hr 02/19/23 02/19/23 23:35 23:35 WBC 16.95 H RBC 4.39 Hgb 13.8 Hct 39.3 L MCV 90 MCH 31.4 MCHC 35.1 RDW 12.6 Plt Count 334 MPV 9.7 Immature Gran % 0.5 Neutrophils % 81.6 Lymphocytes % 8.5 Monocytes % 8.5 Eosinophils % 0.5 Basophils % 0.4 Nucleated RBC % 0.0 Absolute Neutrophils 13.83 H Absolute Lymphocytes 1.44 Absolute Monocytes 1.44 H Absolute Eosinophils 0.08 Absolute Basophils 0.07 Sodium 136 Potassium 3.8 Chloride 98 Carbon Dioxide 23.4 Anion Gap 14.6 H BUN 17 Creatinine 1.4 H Est GFR (CKD-EPI 2020) 60.47 Glucose 247 H Calcium 9.2 Total Bilirubin 0.9 AST 10 L ALT 12 L Alkaline Phosphatase 88 C-Reactive Protein > 25.00 H Total Protein 6.8 Albumin 2.7 L Last Vital Signs Temp 36.9 C 02/20/23 03:39 Pulse 82 02/20/23 03:39 Resp 16 02/20/23 03:39 BP 122/68 02/20/23 03:39 Pulse Ox 97 02/20/23 03:39 Time Spent Time spent with Patient: >75 minutes Time was spent: preparing to see the patient(eg.review tests), obtaining and/or reviewing separately otained hiistory, ordering medications,tests, procedures, referring, communicating with other health healthcare science specialist, indepentently interpreting results and care coordination
[2023-02-20] MEDS: Enoxaparin 40 MG/0.4 ML SYR SC (07:54)
[2023-02-20] MEDS: Lisinopril 5 MG TAB 2.5 MG PO (07:54)
[2023-02-20] MEDS: Levothyroxine 75 MCG TAB 150 MCG PO (07:54)
[2023-02-20] MEDS: Insulin Aspart 300 UNITS/3 ML PEN SC ×3 (08:25→20:54)
[2023-02-20 08:38] LABS: TSH (W/Ref FT4) 0.36 uIU/mL (0.36-3.74)
[2023-02-20 09:36] LABS: HCT 36.4 % (40.0-50.0); HGB 12.5 g/dL (13.5-17.5); MCH 30.9 pg (27.0-33.0); MCHC 34.3 % (32.0-36.0); MCV 90 fL (80-95); MPV 9.6 fL (8.0-11.0); Platelet Count 314 10^3/uL (130-400); RBC 4.04 10^6/uL (4.36-5.78); RDW 12.7 % (11.8-14.1); RDW-SD 42.4 fL; WBC 15.37 10^3/uL (4.4-10.8)
[2023-02-20 09:49] LABS: BUN 14 mg/dL (7-18); C-Reactive Protein 22.58 mg/dL (0.0-0.3); CREATININE 1.1 mg/dL (0.70-1.30); Calcium 8.7 mg/dL (8.5-10.1); Chloride 100 mmol/L (98-107); Estimated GFR 80.77 (mL/min/1.73m2); Glucose 234 mg/dL (74-106); Magnesium 1.6 mg/dL (1.8-2.4); Potassium 4.2 mmol/L (3.5-5.1); Sodium 137 mmol/L (136-145)
[2023-02-20 10:04] LABS: Absolute Lymphocyte Count 2.15 10^3/uL (1.2-3.4); Absolute Neutrophil Count 11.22 10^3/uL (1.2-6.7); Bands % 1
[2023-02-20 10:05] LABS: Diff Comment Manual Differential; RBC Morphology Normal
[2023-02-20 10:09] LABS: Procalcitonin 0.5 ng/mL
[2023-02-20] MEDS: MAGNESIUM SULFATE 2 GM/50 ML BAG IVPB (11:52)
[2023-02-20] MEDS: Lactated Ringers 1,000 ML 80 ML IV ×2 (12:46→23:55)
--- NOTE | 2023-02-20 14:01 | W.SURGCON ---
Date of service: 02/20/23 Time of Service: 14:09 Assessment and Plan Assessment and plan (1) Retinopathy due to secondary diabetes mellitus: Status: Acute (2) Perirectal abscess: Status: Acute Assessment and plan: This is failed outpatient conservative medical management and does need to be addressed surgically. We will plan on doing this under anesthesia in the OR. He did eat so does pose a risk of aspiration. However he is getting some redness and some fluctuance up into the scrotum. So I do feel that this does need to be addressed. His last A1c was 6.5 Because he has been on antibiotics we will plan to cover for MRSA. Risks of surgery include bleeding, infection, pneumonia, blood clot, aspiration, the complications of anesthesia. Chronic pain or numbness, disfigurement, worsening of infection, damage to sphincters which could result in stenosis or loss of control. (3) Cellulitis: Status: Acute (4) Contact dermatitis: Status: Acute (5) Hypothyroidism: Status: Chronic Qualifiers: Hypothyroidism type: acquired Qualified Code(s): E03.9 - Hypothyroidism, unspecified (6) Type 1 diabetes: Status: Chronic Qualifiers: Diabetes mellitus complication status: with ophthalmic complications Diabetes mellitus complication detail: with diabetic retinopathy Diabetic retinopathy severity: with unspecified retinopathy severity Diabetes mellitus macular edema: without macular edema Laterality: unspecified laterality Qualified Code(s): E10.319 - Type 1 diabetes mellitus with unspecified diabetic retinopathy without macular edema (7) Multiple nevi: Status: Acute (8) CYNTHIA (obstructive sleep apnea): (9) PDR (proliferative diabetic retinopathy): (10) HLD (hyperlipidemia): Qualifiers: Hyperlipidemia type: mixed hyperlipidemia Qualified Code(s): E78.2 - Mixed hyperlipidemia History of Present Illness Narrative: Pt has had the abscess for a week without improvement. It has a very foul anerobic smell. He is Type I DM. the swelling is moving up to the scrotum. Pt did have breakfast this am. The there is a large abscess on the left buttock and spread it is tender the meatus very small incision it is draining but there is still a large quality quantity of fluctuant material that does need to be removed. He is not a smoker. History: This is a 52-year-old gentleman who is an insulin-dependent diabetic usually pretty well controlled presenting with a 1 week history of progressive abscess over left buttock.? This was I&D in the emergency room and surgery will be consulted to evaluate.? He will be admitted for IV Zosyn and Zyvox which was initiated by the ED physician.? He does have an elevated WBC but no fever and early signs and symptoms of decompensation with his diabetes but no true DKA.? He will be IV hydrated while treating his infection and being evaluated for further drainage if needed.? He is a full code. Review of Systems All systems reviewed & are unremarkable except as noted in HPI and below PFSH All Active Problems (Updated 02/20/23 @ 14:04 by Kaye John DO) Retinopathy due to secondary diabetes mellitus (Acute) Perirectal abscess (Acute) Cellulitis (Acute) Contact dermatitis (Acute) Hypothyroidism (Chronic) Type 1 diabetes (Chronic) Multiple nevi (Acute) Medical History (Updated 02/20/23 @ 14:04 by Kaye John DO) Diabetic ketoacidosis, type I (09/14/14) DKA (diabetic ketoacidoses) 05/2021- presented with NL blood sugar and high urine keytones HLD (hyperlipidemia) Leukocytosis (09/14/14) CYNTHIA (obstructive sleep apnea) hasn't been a problem since he lost weight PDR (proliferative diabetic retinopathy) procedure around 1995 for repair Family History Mother Depression Father No problems noted. Sister No problems noted. Son No problems noted. Son No problems noted. Daughter No problems noted. Maternal Grandfather , 80's No problems noted. Paternal Grandfather , 92 No problems noted. Maternal Grandmother , 80's No problems noted. Paternal Grandmother , 60's No problems noted. Social History Smoking/Tobacco Use Status: Never Second Hand Exposure: No Smoking risk assessment performed?: Yes Alcohol Intake: never Drug use: Never Caregiver/Support person: No Household members: spouse and children Housing: house Communication Needs: None Do you need help understanding health information?: Rarely Pets and animals: Yes Pets and animals: cat(s) Sexually active: Yes Do you think of yourself as: straight/heterosexual Current gender identity: male What is your relationship status?: How often do you talk on the phone with friends or family?: once per week How often do you get together with friends or relatives?: once per week How often do you attend lutheran or worship services?: 4 or more times per year Do you belong to any clubs or organized social groups?: no Panel score (0-1 are the most socially isolated patients): 2 What type of physical activity do you participate in: walking Duration: < 15 minutes/day Frequency: 3-4 times per week Samia/Islam: Mandaeism Special samia needs: No Seatbelt use: always Helmet use: Yes Helmet use: always Drive intox or ride w/intox escort vehicle driver: No Do you feel safe at home: Yes Do you feel safe in your relationship?: Yes Results Last Vital Signs Temp 36.4 C L 02/20/23 11:18 Pulse 82 02/20/23 11:18 Resp 17 02/20/23 11:18 BP 118/68 02/20/23 11:18 Pulse Ox 95 02/20/23 11:18 Labs 02/20/23 09:25 02/20/23 09:25 Labs: Laboratory Results - last 24 hr 02/19/23 02/19/23 02/20/23 23:35 23:35 00:55 WBC 16.95 H RBC 4.39 Hgb 13.8 Hct 39.3 L MCV 90 MCH 31.4 MCHC 35.1 RDW 12.6 Plt Count 334 MPV 9.7 Immature Gran % 0.5 Neutrophils % 81.6 Band Neutrophils % Lymphocytes % 8.5 Monocytes % 8.5 Eosinophils % 0.5 Basophils % 0.4 Nucleated RBC % 0.0 Absolute Neutrophils 13.83 H Absolute Lymphocytes 1.44 Absolute Monocytes 1.44 H Absolute Eosinophils 0.08 Absolute Basophils 0.07 RBC Morphology Sodium 136 Potassium 3.8 Chloride 98 Carbon Dioxide 23.4 Anion Gap 14.6 H BUN 17 Creatinine 1.4 H Est GFR (CKD-EPI 2020) 60.47 Glucose 247 H Calcium 9.2 Magnesium Total Bilirubin 0.9 AST 10 L ALT 12 L Alkaline Phosphatase 88 C-Reactive Protein > 25.00 H Total Protein 6.8 Albumin 2.7 L Procalcitonin TSH 0.36 02/20/23 02/20/23 02/20/23 09:25 09:25 09:25 WBC 15.37 H RBC 4.04 L Hgb 12.5 L Hct 36.4 L MCV 90 MCH 30.9 MCHC 34.3 RDW 12.7 Plt Count 314 MPV 9.6 Immature Gran % See Differential Neutrophils % 72.0 Band Neutrophils % 1 Lymphocytes % 14.0 Monocytes % 13.0 Eosinophils % 0.0 Basophils % 0.0 Nucleated RBC % 0.0 Absolute Neutrophils 11.22 H Absolute Lymphocytes 2.15 Absolute Monocytes 2.00 H Absolute Eosinophils 0.00 Absolute Basophils 0.00 RBC Morphology Normal Sodium 137 Potassium 4.2 Chloride 100 Carbon Dioxide 23.0 Anion Gap 14.0 H BUN 14 Creatinine 1.1 Est GFR (CKD-EPI 2020) 80.77 Glucose 234 H Calcium 8.7 Magnesium 1.6 L Total Bilirubin AST ALT Alkaline Phosphatase C-Reactive Protein 22.58 H Total Protein Albumin Procalcitonin 0.5 TSH
--- NOTE | 2023-02-20 16:25 | W.ANESPRE ---
General Info Date of Service Date Performed: 02/20/23 Height: 5 ft 10 in Weight: 93.44 kg Body Mass Index (BMI): 29.5 Surgical Procedure: Operation Date: 02/20/23 15:55 Proposed Procedure Side Surgeon p Excision-Dena Rectal Abscess Kaye John, DO Meds Allergies and Home Medications Allergies Allergy/AdvReac Type Severity Reaction Status Date / Time No Known Allergies Allergy Verified 02/19/23 23:25 Home Medication Medication Instructions Recorded glucagon (human recombinant) 1 mg 1 mg IJ DIRECTED ##1 09/16/14 injection kit (Glucagon Emergency Kit (human-recomb)) urine glucose-ketones test #50 strips 09/16/14 (Keto-Diastix strips) atorvastatin 80 mg tablet 80 mg PO QPM #90 tabs 02/16/21 blood-glucose meter,continuous #1 ea 09/27/21 (Dexcom G6 School Leader) lisinopril 5 mg tablet 2.5 mg PO DAILY #90 tabs 06/18/22 insulin glargine 100 unit/mL (3 32 unit (0.32 mL) subcut DAILY #15 07/19/22 mL) subcutaneous pen (Lantus mL Solostar U-100 Insulin) blood-glucose sensor (Dexcom G6 #3 ea 10/07/22 Sensor device) blood-glucose transmitter (Dexcom #1 ea 10/07/22 G6 Transmitter device) insulin lispro 100 unit/mL See Rx Instructions .Route 11/12/22 subcutaneous pen (Humalog KwikPen .COMPLEX #15 mL (U-100) Insulin) levothyroxine 150 mcg tablet 150 mcg PO DAILY #90 tabs 11/25/22 Current Visit Medications: Current Medications Generic Name Dose Route Start Last Admin Trade Name Freq PRN Reason Stop Dose Admin Acetaminophen 325 - 650 mg 02/20/23 06:12 Acetaminophen 325 Mg Tab PO Q4H PRN PRN Al Hydrox/Mg Hydrox/Simethicone 30 ml 02/20/23 06:12 Mylanta Suspension 30 Ml Cup PO Q2H PRN PRN Atorvastatin Calcium 80 mg 02/20/23 20:00 Atorvastatin 40 Mg Tab PO QPM ALISSON Dextrose 0 gm 02/20/23 06:21 Glucose Oral Gel 15 Gm/37.5 Gm Tube PO DIRECTED PRN Dextrose/Water 0 gm 02/20/23 06:21 Dextrose 50%-Water 25 Gm/50 Ml Syr IVP DIRECTED PRN Docusate Sodium 100 mg 02/20/23 06:12 Docusate Sodium 100 Mg Cap PO TID PRN PRN Enoxaparin Sodium 40 mg 02/20/23 08:30 02/20/23 07:54 Enoxaparin 40 Mg/0.4 Ml Syr SC 40 mg Q24H ALISSON Administration Fentanyl 25 mcg 02/20/23 01:26 02/20/23 14:53 Fentanyl 100 Mcg/2 Ml Vial IVP 25 mcg Q1H PRN PRN Administration Linezolid 600 mg in 300 mls @ 300 mls/hr 02/20/23 14:00 02/20/23 15:53 Zyvox Premixed Bag IVPB Infused Q12H [facility] Infusion Piperacillin Sod/Tazobactam 100 mls @ 200 mls/hr 02/20/23 08:00 02/20/23 15:53 Sod 4.5 gm/ Sodium Chloride IVPB Infused Q6H ALISSON Infusion Sodium Chloride 500 mls @ 0 mls/hr 02/20/23 06:12 Saline 500ml Bag IV PRN PRN As Directed Sodium Chloride 1,000 mls @ 125 mls/hr 02/20/23 06:15 Saline 1000ml Bag IV INFUSION ALISSON Ringer's Solution 1,000 mls @ 80 mls/hr 02/20/23 12:45 02/20/23 12:46 IV 80 mls/hr INFUSION ALISSON Administration IV Miscellaneous Supplies 1 each 02/20/23 06:15 Iv Access IV DIRECTED [facility] Insulin Aspart 0 - 18 units 02/20/23 07:30 02/20/23 12:06 Insulin Aspart 300 Units/3 Ml Pen SC 6 unit AC & HS ALISSON Administration Protocol Levothyroxine Sodium 150 mcg 02/20/23 06:45 02/20/23 07:54 Levothyroxine 75 Mcg Tab PO 150 mcg 0600 ALISSON Administration Lisinopril 2.5 mg 02/20/23 08:30 02/20/23 07:54 Lisinopril 5 Mg Tab PO 2.5 mg DAILY ALISSON Administration Magnesium Hydroxide 30 ml 02/20/23 06:12 Milk Of Magnesia 30 Ml Cup PO DAILY PRN PRN Polyethylene Glycol 17 gm 02/20/23 06:12 Polyethylene Glycol 3350 17 Gm Packet PO DAILY PRN PRN Constipation Sodium Chloride 0 ml 02/20/23 06:12 Normal Saline Flush 10 Ml Syr IVP PRN PRN PFSH Active Problems Active Problems: Problem Status Onset Code Retinopathy due to secondary diabetes mellitus E13.319 Perirectal abscess K61.1 Cellulitis L03.90 Contact dermatitis L25.9 Hypothyroidism E03.9 Type 1 diabetes E10.9 Multiple nevi D22.9 Medical History Medical History (Updated 02/20/23 @ 14:04 by Kaye John DO) Diabetic ketoacidosis, type I (09/14/14) DKA (diabetic ketoacidoses) 05/2021- presented with NL blood sugar and high urine keytones HLD (hyperlipidemia) Leukocytosis (09/14/14) CYNTHIA (obstructive sleep apnea) hasn't been a problem since he lost weight PDR (proliferative diabetic retinopathy) procedure around 1995 for repair Tobacco Smoking/Tobacco Use Status: Never Passive smoking exposure: Yes Second hand exposure: No Alcohol Alcohol Intake: never Substance Use Substance use: Never Vital Signs and Lab Results Vital Signs Most Recent Vital Signs in EMR: Most Recent Vital Signs Temp Pulse Resp BP Pulse Ox 37.7 C H 90 17 128/70 95 02/20/23 15:09 02/20/23 15:09 02/20/23 15:09 02/20/23 15:09 02/20/23 15:09 Point of Care Results Point of Care Results: Finger Stick Blood Glucose 237 02/20/23 12:06 Lab Results 02/20/23 09:25 02/20/23 09:25 Blood Type / Crossmatch: No Data to Display Complete Blood Count: White Blood Count 15.37 10^3/uL (4.4-10.8) H 02/20/23 09:25 Red Blood Count 4.04 10^6/uL (4.36-5.78) L 02/20/23 09:25 Hemoglobin 12.5 g/dL (13.5-17.5) L 02/20/23 09:25 Hematocrit 36.4 % (40.0-50.0) L 02/20/23 09:25 Platelet Count 314 10^3/uL (130-400) 02/20/23 09:25 Complete Metabolic Panel: Sodium 137 mmol/L (136-145) 02/20/23 09:25 Potassium 4.2 mmol/L (3.5-5.1) 02/20/23 09:25 Chloride 100 mmol/L (98-107) 02/20/23 09:25 Carbon Dioxide 23.0 mmol/L (21.0-32.0) 02/20/23 09:25 BUN 14 mg/dL (7-18) 02/20/23 09:25 Creatinine 1.1 mg/dL (0.70-1.30) 02/20/23 09:25 Est GFR (CKD-EPI 2020) 80.77 (mL/min/1.73m2) 02/20/23 09:25 Magnesium 1.6 mg/dL (1.8-2.4) L 02/20/23 09:25 Calcium 8.7 mg/dL (8.5-10.1) 02/20/23 09:25 Albumin 2.7 g/dL (3.4-5.0) L 02/19/23 23:35 Glucose 234 mg/dL (74-106) H 02/20/23 09:25 C-Reactive Protein 22.58 mg/dL (0.0-0.3) H 02/20/23 09:25 Liver Function Panel: Alanine Aminotransferase (ALT/SGPT) 12 U/L (16-63) L 02/19/23 23:35 Aspartate Amino Transf (AST/SGOT) 10 U/L (15-37) L 02/19/23 23:35 Coagulation Panel: No Data to Display Cardiac Panel: No Data to Display Arterial Blood Gas: No Data to Display Venous Blood Gas: No Data to Display Pancreas Panel: No Data to Display Thyroid Panel: Thyroid Stimulating Hormone (TSH) 0.36 uIU/mL (0.36-3.74) 02/20/23 00:55 Infectious Disease: No Data to Display Blood Cultures: No Data to Display Toxicology Panel: No Data to Display Imaging and Studies Imaging and Studies Study information below may be from another EMR and interpreted by another provider. Please see original notes in EMR for more complete details. EKG Summary: DATE/TIME OF SERVICE: 04/14/21 1543 : 1970PERFORMING LOCATION: ICU APPROVED REPORT Exam: Resting ECG Reason for Exam: Patient Location: E HR:91 bpm ECG Measurements Heart Rate 91 AXIS TX 171 P 47 QRSd 104 QRS -19 QT 348 T52 QTc 430 Conclusion Sinus rhythm...normal P axis, V-rate 60- 99 ST elev, probable normal early repol pattern...ST elevation, age<55 Anesthesia Assessment and Plan Anesthesia History Personal History: No History of Anesthesia Complications Family History: No Family History of Anesthesia Complications Exercise Tolerance Exercise Tolerance: Metabolic Equivalents>4 Pertinent Negatives Pertinent Negatives: No Symptoms of GERD, No Major Cardiovascular Symptoms or Complaints and No Major Pulmonary Symptoms or Complaints Cardiac & Pulmonary Exam Cardiac Exam: Normal S1/S2 Heart Sounds Pulmonary Exam: Clear Bilateral Breath Sounds Implantable Cardiac Device Does patient have a Pacemaker or an ICD?: No Airway Exam Known Difficult Airway: No Mallampati Class: 2 Mouth Opening: Normal (> 3cm) Thyromental Distance: Greater than 3 cm Neck Range of Motion: Full ROM Neck Circumference: Normal Teeth Condition: Normal Dentition ASA Classification ASA Score: ASA 2 Emergency Case?: Yes NPO Status NPO Status: NPO Clears >2 hours, Solids >8 hours Anesthesia Plan Resuscitation Status: Full Code Anesthesia Technique: General Anesthesia Airway Planned: Natural Airway Monitors Used: Standard Monitors
--- NOTE | 2023-02-20 17:09 | ROE_ITS ---
Date of service: 02/20/23 Time of Service: 17:09 Operative Note Operative Note DATE OF PROCEDURE: 02/20/23 PRE-OP DIAGNOSIS: perirectal abscess POST-OP DIAGNOSIS: same PROCEDURE: incision adn drainage of perirectal absces SURGEON: Kaye John SHAREPOINT WEB DEVELOPER: Fara Foster ANESTHESIA TYPE: Local By Surgeon and General:No Airway Refer to Anesthesia Record ESTIMATED BLOOD LOSS: 25 PATHOLOGY: other COMPLICATIONS: None Patient was transported to: PACU Patient's condition: stable Procedure Description: Patient has a perirectal abscess that has been ongoing for several days and had been treated on outpatient oral antibiotics and has failed conservative medical management is here today for incision and debridement. Informed consent is obtained explaining risks and benefits of the procedure including but not limited to: Bleeding, infection, pneumonia, blood clots, complications from anesthesia, chronic pain or numbness, damage to sphincters resulting in loss of control or stenosis. Patient understands that he is going to need to continue dressing changes and packing. He is at high risk for Shanique's. Patient is brought to the operative suite and placed in the supine position. Anesthesia was then administered per the department of anesthesia. Patient is then placed in the prone position with all bony surfaces padded. He is prepped and draped in the usual sterile fashion using a Betadine scrub solution. He is already on antibiotics. Timeout is performed. patient is in reverse anatomical position. He had a previous I&D site that the ER did at the 9 o'clock position. 20 cc of 1% lidocaine is used for local anesthesia and to do a left-sided pudendal block. He has an open draining sinus at the 7 o'clock position. The abscess is tracking tracking down into the base of the scrotum and along the spermatic cord. A 3 inch incision is made over the midpoint of the abscess.. The entire abscess cavity measures 14 x 4 x 4 cm. There is a dark foul-smelling material; approximately 200 cc. Cultures are taken. It does track all the way over to the rectum but there is no definitive opening. The wound is then curetted and all necrotic tissue removed. Is irrigated with 3 L of saline. It is then packed wet-to-dry. Bleeding is controlled with compression. compression dressings applied. Patient procedure well without complication he was transferred to the recovery room in stable condition. His partner is apprised of findings
--- NOTE | 2023-02-20 17:29 | PDOC.CMIN ---
Date of service: 02/20/23 Time of Service: 17:29 Care Management Initial Assmt Initial Assessment REASON FOR HOSPITALIZATION:: Perirectal Abscess, IDDM PREVIOUS FUNCTIONAL STATUS/SOCIAL/FAMILY SUPPORTS:: Bjorn lives in [place] with his , Nan. He has three children, who are all fairly local. He is currently unemployed due to Covid 19. He is independent at baseline. CURRENT FUNCTIONAL STATUS:: Up independently, though reportedly in pain with ambulation. ADVANCE DIRECTIVES:: None on file. Has patient been provided with info about the portal/API?: Yes Did the patient sign up for the portal?: Yes CODE STATUS:: Full Code INSURANCE COVERAGE / FINANCIAL ISSUES:: BCBS CURRENT HOME/COMMUNITY SERVICES/EQUIPMENT:: No current services or equipment. PRIMARY CARE PHYSICIAN:: Joao Mcgregor POTENTIAL DISCHARGE NEEDS:: Follow up appointments. PATIENT/FAMILY EDUCATION NEEDS:: Review discharge instructions, discuss Ask Me Three. TRANSPORTATION:: Via private vehicle with . PLAN:: Bjorn continues to be closely monitored and treated, CM continues to follow. PFSH All Active Problems (Updated 02/20/23 @ 14:04 by Kaye John DO) Retinopathy due to secondary diabetes mellitus (Acute) Perirectal abscess (Acute) Cellulitis (Acute) Contact dermatitis (Acute) Hypothyroidism (Chronic) Type 1 diabetes (Chronic) Multiple nevi (Acute) Medical History (Updated 02/20/23 @ 14:04 by Kaye John DO) Diabetic ketoacidosis, type I (09/14/14) DKA (diabetic ketoacidoses) 05/2021- presented with NL blood sugar and high urine keytones HLD (hyperlipidemia) Leukocytosis (09/14/14) CYNTHIA (obstructive sleep apnea) hasn't been a problem since he lost weight PDR (proliferative diabetic retinopathy) procedure around 1995 for repair Surgical History (Updated 02/21/23 @ 07:43 by Cheyenne Nelson) Status post incision and drainage (~02/2023) perirectal abscess Family History Mother Depression Father No problems noted. Sister No problems noted. Son No problems noted. Son No problems noted. Daughter No problems noted. Maternal Grandfather , 80's No problems noted. Paternal Grandfather , 92 No problems noted. Maternal Grandmother , 80's No problems noted. Paternal Grandmother , 60's No problems noted. Social History Smoking/Tobacco Use Status: Never Second Hand Exposure: No Smoking risk assessment performed?: Yes Alcohol Intake: never Drug use: Never Caregiver/Support person: No Household members: spouse and children Housing: house Communication Needs: None Do you need help understanding health information?: Rarely Pets and animals: Yes Pets and animals: cat(s) Sexually active: Yes Do you think of yourself as: straight/heterosexual Current gender identity: male What is your relationship status?: How often do you talk on the phone with friends or family?: once per week How often do you get together with friends or relatives?: once per week How often do you attend mandaen or judaism services?: 4 or more times per year Do you belong to any clubs or organized social groups?: no Panel score (0-1 are the most socially isolated patients): 2 What type of physical activity do you participate in: walking Duration: < 15 minutes/day Frequency: 3-4 times per week Samia/Scientology: Caodaism Special samia needs: No Seatbelt use: always Helmet use: Yes Helmet use: always Drive intox or ride w/intox jitney driver: No Do you feel safe at home: Yes Do you feel safe in your relationship?: Yes
--- NOTE | 2023-02-20 17:32 | PGE_ITS ---
Date of Service Date of service: 02/20/23 Time of Service: 17:32 Subjective Subjective Interval history since last seen: Patient is still in the OR post I&D of his perirectal abscess. I am unable to examine him at this time. Objective Last Vital Signs Temp 37.7 C H 02/20/23 15:09 Pulse 90 02/20/23 15:09 Resp 17 02/20/23 15:09 BP 128/70 02/20/23 15:09 Pulse Ox 95 02/20/23 15:09 Laboratory Results - last 24 hr 02/19/23 02/19/23 02/20/23 23:35 23:35 00:55 WBC 16.95 H RBC 4.39 Hgb 13.8 Hct 39.3 L MCV 90 MCH 31.4 MCHC 35.1 RDW 12.6 Plt Count 334 MPV 9.7 Immature Gran % 0.5 Neutrophils % 81.6 Band Neutrophils % Lymphocytes % 8.5 Monocytes % 8.5 Eosinophils % 0.5 Basophils % 0.4 Nucleated RBC % 0.0 Absolute Neutrophils 13.83 H Absolute Lymphocytes 1.44 Absolute Monocytes 1.44 H Absolute Eosinophils 0.08 Absolute Basophils 0.07 RBC Morphology Sodium 136 Potassium 3.8 Chloride 98 Carbon Dioxide 23.4 Anion Gap 14.6 H BUN 17 Creatinine 1.4 H Est GFR (CKD-EPI 2020) 60.47 Glucose 247 H Calcium 9.2 Magnesium Total Bilirubin 0.9 AST 10 L ALT 12 L Alkaline Phosphatase 88 C-Reactive Protein > 25.00 H Total Protein 6.8 Albumin 2.7 L Procalcitonin TSH 0.36 02/20/23 02/20/23 02/20/23 09:25 09:25 09:25 WBC 15.37 H RBC 4.04 L Hgb 12.5 L Hct 36.4 L MCV 90 MCH 30.9 MCHC 34.3 RDW 12.7 Plt Count 314 MPV 9.6 Immature Gran % See Differential Neutrophils % 72.0 Band Neutrophils % 1 Lymphocytes % 14.0 Monocytes % 13.0 Eosinophils % 0.0 Basophils % 0.0 Nucleated RBC % 0.0 Absolute Neutrophils 11.22 H Absolute Lymphocytes 2.15 Absolute Monocytes 2.00 H Absolute Eosinophils 0.00 Absolute Basophils 0.00 RBC Morphology Normal Sodium 137 Potassium 4.2 Chloride 100 Carbon Dioxide 23.0 Anion Gap 14.0 H BUN 14 Creatinine 1.1 Est GFR (CKD-EPI 2020) 80.77 Glucose 234 H Calcium 8.7 Magnesium 1.6 L Total Bilirubin AST ALT Alkaline Phosphatase C-Reactive Protein 22.58 H Total Protein Albumin Procalcitonin 0.5 TSH Time Spent with Patient Time Spent with Patient: <25 minutes Time was spent: preparing to see the patient(eg.review tests), obtaining and/or reviewing separately otained hiistory, ordering medications,tests, procedures, referring, communicating with other health school child care attendant, indepentently interpreting results and care coordination
[2023-02-20] MEDS: Lidocaine 1% Pres-Free 30 ML VIAL (17:47)
[2023-02-20] MEDS: fentaNYL 100 MCG/2 ML VIAL IVP (18:18)
--- NOTE | 2023-02-20 18:21 | W.ANESPOSTOP ---
Postoperative Evaluation Date, Time and Location Date Performed: 02/20/23 Time Performed: 18:21 Patient Location: PACU Vital Signs Most Recent Imported Vital Signs: Most Recent Vital Signs Temp Pulse Resp BP Pulse Ox 37.1 C 94 H 23 113/55 L 94 02/20/23 18:07 02/20/23 18:07 02/20/23 18:07 02/20/23 18:07 02/20/23 18:07 Pain Score Most Recent Pain Score: Most Recent Pain Score Pain Level 5 02/20/23 18:07 Assessment Mental Status: Awake (Alert & Oriented to Patient Baseline) Airway and Respiratory Function: Patent airway with normal (patient baseline) respiratory exam Cardiovascular Function: Hemodynamically Stable Hydration Status: Adequately Hydrated Nausea & Vomiting: No Nausea or Vomiting Pain: Pain is Moderate or Severe Postoperative Pain Management: Pain being addressed with medication and Ongoing pain, patient will be managed as an inpatient Peripheral Nerve Block: Patient did not receive a nerve block
[2023-02-20] MEDS: Atorvastatin 40 MG TAB 80 MG PO (20:56)
[2023-02-20] MEDS: Acetaminophen 500 MG TAB 1000 MG PO (20:56)
--- NOTE | 2023-02-20 21:52 | W.PM.PROGNOT ---
Date of Service Date of service: 02/20/23 Time of Service: 21:52 Assessment and Plan Assessment and plan (1) Retinopathy due to secondary diabetes mellitus: Status: Acute (2) Perirectal abscess: Status: Acute Assessment and plan: The patient is doing well post-op. Their pain is well controlled. They are having no nausea or vomiting. The pt is not having any chest pain or SOB, productive cough; no calf pain or swelling. The pt is making good urine. The pt pain is adequately controlled. The case was discussed with nursing and patients progress reviewed. All of the pt's home medications were addressed and adjusted accordingly for their oral intact status. HEENT: no jaundice. no eye pain/drainage/redness/swelling. mild sore throat cardio- NSR no chest pain, BP stable. pulm: no sob or productive cough. no hemoptysis incision- clean/dry. dressing intact no excessive bleeding or drainage I discussed with the patient and/or their family about the findings in surgery and the pt's prognosis. We reviewed expectations for progress in the hospital; what the pt could expect for recovery time and length of stay. We discussed the importance of walking and pulmonary toilet to avoid blood clots and pneumonia. Continue current plans for pulmonary toilet, GI and DVT prophylaxis. We shall continue the current plan for pain management as it is at an appropriate level and working well for the pt. Appropriate measures will be taken for constipation prevention as well, and this was also reviewed with the pt. A wound care plan was reviewed with nursing as well. see orders (3) Cellulitis: Status: Acute (4) Hypothyroidism: Status: Chronic Qualifiers: Hypothyroidism type: acquired Qualified Code(s): E03.9 - Hypothyroidism, unspecified (5) Type 1 diabetes: Status: Chronic Qualifiers: Diabetes mellitus complication status: with ophthalmic complications Diabetes mellitus complication detail: with diabetic retinopathy Diabetic retinopathy severity: with unspecified retinopathy severity Diabetes mellitus macular edema: without macular edema Laterality: unspecified laterality Qualified Code(s): E10.319 - Type 1 diabetes mellitus with unspecified diabetic retinopathy without macular edema (6) CYNTHIA (obstructive sleep apnea): (7) HLD (hyperlipidemia): Qualifiers: Hyperlipidemia type: mixed hyperlipidemia Qualified Code(s): E78.2 - Mixed hyperlipidemia Objective Last Vital Signs Temp 37.3 C 02/20/23 18:54 Pulse 82 02/20/23 18:54 Resp 16 02/20/23 18:54 BP 128/68 02/20/23 18:54 Pulse Ox 94 02/20/23 18:54 Laboratory Results - last 24 hr 02/19/23 02/19/23 02/20/23 23:35 23:35 00:55 WBC 16.95 H RBC 4.39 Hgb 13.8 Hct 39.3 L MCV 90 MCH 31.4 MCHC 35.1 RDW 12.6 Plt Count 334 MPV 9.7 Immature Gran % 0.5 Neutrophils % 81.6 Band Neutrophils % Lymphocytes % 8.5 Monocytes % 8.5 Eosinophils % 0.5 Basophils % 0.4 Nucleated RBC % 0.0 Absolute Neutrophils 13.83 H Absolute Lymphocytes 1.44 Absolute Monocytes 1.44 H Absolute Eosinophils 0.08 Absolute Basophils 0.07 RBC Morphology Sodium 136 Potassium 3.8 Chloride 98 Carbon Dioxide 23.4 Anion Gap 14.6 H BUN 17 Creatinine 1.4 H Est GFR (CKD-EPI 2020) 60.47 Glucose 247 H Calcium 9.2 Magnesium Total Bilirubin 0.9 AST 10 L ALT 12 L Alkaline Phosphatase 88 C-Reactive Protein > 25.00 H Total Protein 6.8 Albumin 2.7 L Procalcitonin TSH 0.36 02/20/23 02/20/23 02/20/23 09:25 09:25 09:25 WBC 15.37 H RBC 4.04 L Hgb 12.5 L Hct 36.4 L MCV 90 MCH 30.9 MCHC 34.3 RDW 12.7 Plt Count 314 MPV 9.6 Immature Gran % See Differential Neutrophils % 72.0 Band Neutrophils % 1 Lymphocytes % 14.0 Monocytes % 13.0 Eosinophils % 0.0 Basophils % 0.0 Nucleated RBC % 0.0 Absolute Neutrophils 11.22 H Absolute Lymphocytes 2.15 Absolute Monocytes 2.00 H Absolute Eosinophils 0.00 Absolute Basophils 0.00 RBC Morphology Normal Sodium 137 Potassium 4.2 Chloride 100 Carbon Dioxide 23.0 Anion Gap 14.0 H BUN 14 Creatinine 1.1 Est GFR (CKD-EPI 2020) 80.77 Glucose 234 H Calcium 8.7 Magnesium 1.6 L Total Bilirubin AST ALT Alkaline Phosphatase C-Reactive Protein 22.58 H Total Protein Albumin Procalcitonin 0.5 TSH Time Spent with Patient Time Spent with Patient: <25 minutes Time was spent: preparing to see the patient(eg.review tests), obtaining and/or reviewing separately otained hiistory, ordering medications,tests, procedures, referring, communicating with other health urgent care nurse practitioner, indepentently interpreting results, counseling the patient and care coordination
[2023-02-21] MEDS: PIPERACILLIN/TAZO 4.5 GM in Normal Saline 100 ML IVPB ×4 (01:06→20:53)
[2023-02-21] MEDS: LINEZOLID 600 MG/300 ML BAG 300 MG IVPB (01:06)
[2023-02-21 03:19] VITALS: BP 120/75; PULSE 70; RESP 16; TEMP 37; O2SAT 95
[2023-02-21] MEDS: Ketorolac 15 MG/ML VIAL IVP (04:55)
[2023-02-21 06:49] LABS: Abs Immature Grans 0.19 10^3/uL (0.0-0.06); Absolute Basophil Count 0.07 10^3/uL (0.0-0.2); Absolute Lymphocyte Count 0.78 10^3/uL (1.2-3.4); Absolute Monocyte Count 1.38 10^3/uL (0.1-0.8); Absolute Neutrophil Count 12.27 10^3/uL (1.2-6.7); Basophils % 0.5; Eosinophils % 0.7; HGB 12.3 g/dL (13.5-17.5); Immature Grans % 1.3; Lymphocytes % 5.3; MCH 31.1 pg (27.0-33.0); MCHC 34.2 % (32.0-36.0); MCV 91 fL (80-95); MPV 9.8 fL (8.0-11.0); Monocytes % 9.3; Neutrophils % 82.9; Platelet Count 326 10^3/uL (130-400); RBC 3.95 10^6/uL (4.36-5.78); RDW 12.9 % (11.8-14.1); RDW-SD 43.3 fL
[2023-02-21 07:08] LABS: ALT 9 U/L (16-63); AST 7 U/L (15-37); Albumin 2.1 g/dL (3.4-5.0); Alkaline Phosphatase 71 U/L (46-116); Anion Gap 12.3 mmol/L (3-11); BUN 16 mg/dL (7-18); Bilirubin, Total 0.8 mg/dL (0.2-1.0); C-Reactive Protein 22.62 mg/dL (0.0-0.3); CO2 23.7 mmol/L (21.0-32.0); CREATININE 1.2 mg/dL (0.70-1.30); Calcium 8.4 mg/dL (8.5-10.1); Chloride 102 mmol/L (98-107); Estimated GFR 72.76 (mL/min/1.73m2); Glucose 304 mg/dL (74-106); Magnesium 1.9 mg/dL (1.8-2.4); Potassium 4.1 mmol/L (3.5-5.1); Sodium 138 mmol/L (136-145); Total Protein 5.7 g/dL (6.4-8.2)
[2023-02-21 07:17] VITALS: BP 94/62; PULSE 74; RESP 18; TEMP 37.3; O2SAT 95
[2023-02-21 08:00] VITALS: BP 92/58
[2023-02-21] MEDS: Polyethylene Glycol 3350 17 GM PACKET PO (08:14)
[2023-02-21] MEDS: Insulin Aspart 300 UNITS/3 ML PEN SC ×4 (08:15→20:57)
[2023-02-21] MEDS: Acetaminophen 500 MG TAB 1000 MG PO ×3 (08:15→20:53)
[2023-02-21] MEDS: Lactated Ringers 250 ML IV (08:18)
[2023-02-21] MEDS: Methocarbamol 750 MG TAB PO (08:32)
--- NOTE | 2023-02-21 09:18 | PGE_ITS ---
Date of Service Date of service: 02/21/23 Time of Service: 09:18 Assessment and Plan Assessment and plan (1) Retinopathy due to secondary diabetes mellitus: Status: Acute (2) Perirectal abscess: Status: Acute Assessment and plan: POD #1 status post perirectal abscess I&D in the OR with Dr. John. Patient describes that his pain is well controlled at this time. He will require wound irrigation and dressing change later today. Continue Zosyn/Vanco, white count is slowly trending downward. We will continue with blood sugar control. pt is taking more insulin here than he takes at home Continue with diabetic diet Encourage activity out of bed with ambulation and sitting in the chair walk to tolerance Continue with pain management and IV antibiotics. dressing change done: wound is clean. minimal granulation tissue. no purulence or stool clinically improved. CRP is slowly trending down (3) Cellulitis: Status: Acute (4) Hypothyroidism: Status: Chronic Qualifiers: Hypothyroidism type: acquired Qualified Code(s): E03.9 - Hypothyroidism, unspecified (5) Type 1 diabetes: Status: Chronic Qualifiers: Diabetes mellitus complication detail: with diabetic retinopathy Diabetes mellitus complication status: with ophthalmic complications Diabetes mellitus macular edema: without macular edema Diabetic retinopathy severity: with unspecified retinopathy severity Laterality: unspecified laterality Qualified Code(s): E10.319 - Type 1 diabetes mellitus with unspecified diabetic retinopathy without macular edema (6) CYNTHIA (obstructive sleep apnea): (7) HLD (hyperlipidemia): Qualifiers: Hyperlipidemia type: mixed hyperlipidemia Qualified Code(s): E78.2 - Mixed hyperlipidemia Subjective Subjective Interval history since last seen: Arrived with the patient sleeping soundly in his bed. He states that his pain is very well controlled at this time, he received Toradol at 5:00 this morning. Exam Const General: cooperative, healthy appearing and comfortable Orientation: alert and oriented x3 Resp Effort & Inspection: normal respiratory effort, no audible wheezes and no cough Objective Last Vital Signs Temp 37.3 C 02/21/23 07:17 Pulse 74 02/21/23 07:17 Resp 18 02/21/23 07:17 BP 94/62 L 02/21/23 07:17 Pulse Ox 95 02/21/23 07:17 Laboratory Results - last 24 hr 02/20/23 02/20/23 02/20/23 09:25 09:25 09:25 WBC 15.37 H RBC 4.04 L Hgb 12.5 L Hct 36.4 L MCV 90 MCH 30.9 MCHC 34.3 RDW 12.7 Plt Count 314 MPV 9.6 Immature Gran % See Differential Neutrophils % 72.0 Band Neutrophils % 1 Lymphocytes % 14.0 Monocytes % 13.0 Eosinophils % 0.0 Basophils % 0.0 Nucleated RBC % 0.0 Absolute Neutrophils 11.22 H Absolute Lymphocytes 2.15 Absolute Monocytes 2.00 H Absolute Eosinophils 0.00 Absolute Basophils 0.00 RBC Morphology Normal Sodium 137 Potassium 4.2 Chloride 100 Carbon Dioxide 23.0 Anion Gap 14.0 H BUN 14 Creatinine 1.1 Est GFR (CKD-EPI 2020) 80.77 Glucose 234 H Calcium 8.7 Magnesium 1.6 L Total Bilirubin AST ALT Alkaline Phosphatase C-Reactive Protein 22.58 H Total Protein Albumin Procalcitonin 0.5 02/21/23 02/21/23 06:15 06:15 WBC 14.80 H RBC 3.95 L Hgb 12.3 L Hct 36.0 L MCV 91 MCH 31.1 MCHC 34.2 RDW 12.9 Plt Count 326 MPV 9.8 Immature Gran % 1.3 Neutrophils % 82.9 Band Neutrophils % Lymphocytes % 5.3 Monocytes % 9.3 Eosinophils % 0.7 Basophils % 0.5 Nucleated RBC % 0.0 Absolute Neutrophils 12.27 H Absolute Lymphocytes 0.78 L Absolute Monocytes 1.38 H Absolute Eosinophils 0.10 Absolute Basophils 0.07 RBC Morphology Sodium 138 Potassium 4.1 Chloride 102 Carbon Dioxide 23.7 Anion Gap 12.3 H BUN 16 Creatinine 1.2 Est GFR (CKD-EPI 2020) 72.76 Glucose 304 H Calcium 8.4 L Magnesium 1.9 Total Bilirubin 0.8 AST 7 L ALT 9 L Alkaline Phosphatase 71 C-Reactive Protein 22.62 H Total Protein 5.7 L Albumin 2.1 L Procalcitonin Time Spent with Patient Time Spent with Patient: 35-49 minutes Time was spent: preparing to see the patient(eg.review tests), obtaining and/or reviewing separately otained hiistory, ordering medications,tests, procedures, referring, communicating with other health farm or ranch animal caretaker, indepentently interpreting results, counseling the patient and care coordination
[2023-02-21 11:08] VITALS: BP 92/52; PULSE 78; RESP 16; TEMP 36.2; O2SAT 93
[2023-02-21] MEDS: Ketorolac 30 MG/ML VIAL 15 MG IVP ×2 (11:26→17:36)
[2023-02-21] MEDS: Lactated Ringers 1,000 ML 1000 ML IV (12:10)
[2023-02-21] MEDS: VANCOMYCIN/WATER (PEG) 1.5 GM/300 ML BAG IV (14:38)
[2023-02-21 14:50] VITALS: BP 105/63; PULSE 72; RESP 20; TEMP 36.2; O2SAT 95
[2023-02-21] MEDS: HYDROmorphone 2 MG/ML SYR 0.5 MG IVP (14:58)
[2023-02-21] MEDS: Normal Saline Flush 10 ML SYR IVP ×2 (14:58→20:53)
[2023-02-21] MEDS: LORazepam 2 MG/ML VIAL 0.5 MG IVP (14:58)
--- NOTE | 2023-02-21 16:05 | PDOC.CMPRO ---
Date of service: 02/21/23 Time of Service: 16:05 Care Management Progress Note Progress Note Text Progress Note Text: S/O Bjorn is being closely monitored and treated with IV Zosyn/Vanco. He is POD #1 s/p perirectal abscess I&D in the OR and requires dressing changes. He is doing well, his pain is being well controlled. Dr. John recommend he look into getting an insulin pump in the future. Anticipate, he will discharge home with [facility] RN for dressing changes, if needed. CM will follow. A: 52 year old male admitted to [facility] on 02/20/23 for Perirectal Abscess, IDDM P: Home with new [facility] RN(if indicated for dressing changes). Transport via private vehicle with family. Follow up with outpatient providers. Dr. John recommends an insulin pump in the future. CM continues to follow.
--- NOTE | 2023-02-21 17:50 | PGE_ITS ---
Date of Service Date of service: 02/21/23 Time of Service: 17:50 Assessment and Plan Assessment and plan (1) Perirectal abscess: Start date: 02/20/23 Status: Acute Assessment and plan: S/p I&D by general surgery on 02/20/23. BLood cx with NGTD. Wound culture is growing gram positive damir. Await speciation/sensitivities. Abx changed to vancomycin/zosyn - continue. Defer wound care to general surgery. (2) Cellulitis: Start date: 02/13/23 Status: Acute Assessment and plan: As above (3) Type 1 diabetes: Status: Chronic Assessment and plan: The patient evidently missed long acting insulin yesterday, but is getting it tonight. He refused it this morning. I have made his sliding scale resistant and added a carb coverage until then. Hyperglycemia could also be explained by infection and any abx contained in D5 fluids. Qualifiers: Diabetes mellitus complication status: with ophthalmic complications Diabetes mellitus complication detail: with diabetic retinopathy Diabetic retinopathy severity: with unspecified retinopathy severity Diabetes mellitus macular edema: without macular edema Laterality: unspecified laterality Qualified Code(s): E10.319 - Type 1 diabetes mellitus with unspecified diabetic retinopathy without macular edema (4) CYNTHIA (obstructive sleep apnea): Assessment and plan: We are clarifying if the patient is supposed to use a CPAP machine. (5) Hypothyroidism: Status: Chronic Assessment and plan: Continue levothyroxine. Qualifiers: Hypothyroidism type: acquired Qualified Code(s): E03.9 - Hypothyroidism, unspecified (6) HLD (hyperlipidemia): Assessment and plan: Continue atorvastatin. Qualifiers: Hyperlipidemia type: mixed hyperlipidemia Qualified Code(s): E78.2 - Mixed hyperlipidemia (7) DVT prophylaxis: Status: Acute Assessment and plan: SC enoxaparin (8) Discharge planning issues: Status: Acute Assessment and plan: Full code Continues to require hospitalization. Subjective Subjective Interval history since last seen: Mr Batista states his pain is controlled right now. Denies dizziness, CP, SOB, n/v. He is concerned about his blood sugars. His is interested in knowing the results of the wound cultures. Exam Narrative Exam Narrative: General: pleasant middle-aged male who is A&Ox3, NAD, appears comfortable in bed HEENT: EOMI, MMM Heart: RRR, no m/r/g Lungs: CTAB Abdomen: soft, nontender, nondistended : I did not examine his genital region due to his dressing just being changed by the surgeons Extremities: no edema BLEs Objective Last Vital Signs Temp 36.2 C L 02/21/23 14:50 Pulse 72 02/21/23 14:50 Resp 20 02/21/23 14:50 BP 105/63 02/21/23 14:50 Pulse Ox 95 02/21/23 14:50 Laboratory Results - last 24 hr 02/21/23 02/21/23 06:15 06:15 WBC 14.80 H RBC 3.95 L Hgb 12.3 L Hct 36.0 L MCV 91 MCH 31.1 MCHC 34.2 RDW 12.9 Plt Count 326 MPV 9.8 Immature Gran % 1.3 Neutrophils % 82.9 Lymphocytes % 5.3 Monocytes % 9.3 Eosinophils % 0.7 Basophils % 0.5 Nucleated RBC % 0.0 Absolute Neutrophils 12.27 H Absolute Lymphocytes 0.78 L Absolute Monocytes 1.38 H Absolute Eosinophils 0.10 Absolute Basophils 0.07 Sodium 138 Potassium 4.1 Chloride 102 Carbon Dioxide 23.7 Anion Gap 12.3 H BUN 16 Creatinine 1.2 Est GFR (CKD-EPI 2020) 72.76 Glucose 304 H Calcium 8.4 L Magnesium 1.9 Total Bilirubin 0.8 AST 7 L ALT 9 L Alkaline Phosphatase 71 C-Reactive Protein 22.62 H Total Protein 5.7 L Albumin 2.1 L Time Spent with Patient Time Spent with Patient: 25-34 minutes Time was spent: preparing to see the patient(eg.review tests), obtaining and/or reviewing separately otained hiistory, ordering medications,tests, procedures, referring, communicating with other health career services representative, indepentently interpreting results, counseling the patient and care coordination
[2023-02-21] MEDS: Atorvastatin 40 MG TAB 80 MG PO (20:53)
[2023-02-21] MEDS: Insulin Glargine 300 UNITS/3 ML PEN 35 UNITS SC (20:54)
[2023-02-21 21:03] VITALS: BP 110/66; PULSE 76; RESP 16; TEMP 36.2; O2SAT 97
--- NOTE | 2023-02-21 21:30 | PGE_ITS ---
Date of Service Date of service: 02/21/23 Time of Service: 21:30 Assessment and Plan Assessment and plan (1) Retinopathy due to secondary diabetes mellitus: Status: Acute (2) Perirectal abscess: Status: Acute Assessment and plan: POD#1 wet to dry dressing changes DM diet. insulins coverage per hospitalists- sugars have been running high. DVT: lovenox/walking Zosyn D#2 Vanco D#1 cultures reviewed- see Meditach labs EBC is up slightly- to be expected Clinically pt looks significantly improved. (3) Contact dermatitis: Status: Acute (4) Hypothyroidism: Status: Chronic Qualifiers: Hypothyroidism type: acquired Qualified Code(s): E03.9 - Hypothyroidism, unspecified (5) Type 1 diabetes: Status: Chronic Qualifiers: Diabetes mellitus complication status: with ophthalmic complications Diabetes mellitus complication detail: with diabetic retinopathy Diabetic retinopathy severity: with unspecified retinopathy severity Diabetes mellitus macular edema: without macular edema Laterality: unspecified laterality Qualified Code(s): E10.319 - Type 1 diabetes mellitus with unspecified diabetic retinopathy without macular edema (6) Multiple nevi: Status: Acute (7) CYNTHIA (obstructive sleep apnea): Subjective Subjective Interval history since last seen: Pt is doing well. no headaches. No CP or SOB. no productive cough. no dysur ia. no leg pain or swelling. He has not had a BMsince admission. He has been up and walking. Pain has been reasonably well controlled. BS have been running high. Exam Const General: cooperative, healthy appearing and comfortable Nutritional Appearance: average body habitus Orientation: alert, awake and oriented x3 Other: PHYSICAL EXAM GENERAL APPEARANCE: Alert, healthy appearance, oriented, x 3,? in no acute distress HYDRATION: Well hydrated HEAD, EYES, EARS, NECK, THROAT: Head is normocephalic, pupils equal, round, reactive to light and accommodation, ocular movement intact, sclera clear and no jaundice. ?Dentition intact. No sore throat.? No jaw pain. No thrush NECK: no lymphadenopathy.? Trachea midline.? Neck supple.? No JVD LUNGS: normal respiration/normal chest excursion. ?Clear to auscultation bilaterally. ?No wheeze. ?HEART: Regular rate and rhythm. no murmurs L perirectal wound: much less redness and swelling. The wound is clean. No granulation tissue. no significant bleeding. Odor is much imporved. ABDOMEN: soft and non-tender to palpation.? Normal bowel sounds.? Objective Last Vital Signs Temp 36.2 C L 02/21/23 21:03 Pulse 76 02/21/23 21:03 Resp 16 02/21/23 21:03 BP 110/66 02/21/23 21:03 Pulse Ox 97 02/21/23 21:03 Laboratory Results - last 24 hr 02/21/23 02/21/23 06:15 06:15 WBC 14.80 H RBC 3.95 L Hgb 12.3 L Hct 36.0 L MCV 91 MCH 31.1 MCHC 34.2 RDW 12.9 Plt Count 326 MPV 9.8 Immature Gran % 1.3 Neutrophils % 82.9 Lymphocytes % 5.3 Monocytes % 9.3 Eosinophils % 0.7 Basophils % 0.5 Nucleated RBC % 0.0 Absolute Neutrophils 12.27 H Absolute Lymphocytes 0.78 L Absolute Monocytes 1.38 H Absolute Eosinophils 0.10 Absolute Basophils 0.07 Sodium 138 Potassium 4.1 Chloride 102 Carbon Dioxide 23.7 Anion Gap 12.3 H BUN 16 Creatinine 1.2 Est GFR (CKD-EPI 2020) 72.76 Glucose 304 H Calcium 8.4 L Magnesium 1.9 Total Bilirubin 0.8 AST 7 L ALT 9 L Alkaline Phosphatase 71 C-Reactive Protein 22.62 H Total Protein 5.7 L Albumin 2.1 L Time Spent with Patient Time Spent with Patient: 25-34 minutes Time was spent: preparing to see the patient(eg.review tests), obtaining and/or reviewing separately otained hiistory, ordering medications,tests, procedures, referring, communicating with other health caregiver services home, indepentently interpreting results, counseling the patient and care coordination
[2023-02-22] MEDS: Acetaminophen 500 MG TAB 1000 MG PO ×4 (01:12→20:25)
[2023-02-22] MEDS: PIPERACILLIN/TAZO 4.5 GM in Normal Saline 100 ML IVPB ×2 (01:12→07:43)
[2023-02-22] MEDS: Normal Saline Flush 10 ML SYR IVP ×2 (01:13→20:31)
[2023-02-22] MEDS: Ketorolac 30 MG/ML VIAL 15 MG IVP ×2 (01:15→06:22)
[2023-02-22 01:18] VITALS: BP 99/63; PULSE 64; RESP 16; TEMP 36.4; O2SAT 99
[2023-02-22] MEDS: Levothyroxine 75 MCG TAB 150 MCG PO (06:19)
[2023-02-22 06:20] VITALS: BP 104/58; PULSE 64; RESP 16; TEMP 36.3; O2SAT 95
[2023-02-22 07:11] LABS: Abs Immature Grans 0.06 10^3/uL (0.0-0.06); Absolute Basophil Count 0.06 10^3/uL (0.0-0.2); Absolute Eosinophil Count 0.37 10^3/uL (0.0-0.7); Absolute Lymphocyte Count 1.17 10^3/uL (1.2-3.4); Absolute Monocyte Count 0.82 10^3/uL (0.1-0.8); Absolute Neutrophil Count 6.25 10^3/uL (1.2-6.7); Basophils % 0.7; Eosinophils % 4.2; HCT 33.8 % (40.0-50.0); HGB 11.6 g/dL (13.5-17.5); Immature Grans % 0.7; Lymphocytes % 13.4; MCH 31.2 pg (27.0-33.0); MCHC 34.3 % (32.0-36.0); MCV 91 fL (80-95); Monocytes % 9.4; Neutrophils % 71.6; Platelet Count 341 10^3/uL (130-400); RBC 3.72 10^6/uL (4.36-5.78); RDW 12.8 % (11.8-14.1); WBC 8.73 10^3/uL (4.4-10.8)
[2023-02-22 07:37] LABS: Anion Gap 12.3 mmol/L (3-11); BUN 25 mg/dL (7-18); C-Reactive Protein 22.01 mg/dL (0.0-0.3); CO2 24.7 mmol/L (21.0-32.0); CREATININE 1.4 mg/dL (0.70-1.30); Calcium 8.7 mg/dL (8.5-10.1); Chloride 103 mmol/L (98-107); Estimated GFR 60.47 (mL/min/1.73m2); Glucose 225 mg/dL (74-106); Potassium 3.8 mmol/L (3.5-5.1); Sodium 140 mmol/L (136-145)
[2023-02-22] MEDS: VANCOMYCIN/WATER (PEG) 1.5 GM/300 ML BAG IV (07:43)
[2023-02-22] MEDS: Enoxaparin 40 MG/0.4 ML SYR SC (07:44)
[2023-02-22] MEDS: Polyethylene Glycol 3350 17 GM PACKET PO (07:44)
[2023-02-22] MEDS: Insulin Aspart 300 UNITS/3 ML PEN SC ×7 (07:44→20:29)
[2023-02-22 08:17] LABS: Procalcitonin 0.7 ng/mL
--- NOTE | 2023-02-22 09:49 | W.PM.PROGNOT ---
Date of Service Date of service: 02/22/23 Time of Service: 09:49 Assessment and Plan Assessment and plan (1) Retinopathy due to secondary diabetes mellitus: Status: Acute (2) Perirectal abscess: Status: Acute Assessment and plan: abx: zosyn dressing: packing wet-to-dry DVT: lovenox pulm toilet pain control adequate + bm should be able to dc in am. teaching for spouse order home health as well. (3) Cellulitis: Status: Acute (4) Hypothyroidism: Status: Chronic Qualifiers: Hypothyroidism type: acquired Qualified Code(s): E03.9 - Hypothyroidism, unspecified (5) Type 1 diabetes: Status: Chronic Qualifiers: Diabetes mellitus complication detail: with diabetic retinopathy Diabetes mellitus complication status: with ophthalmic complications Diabetes mellitus macular edema: without macular edema Diabetic retinopathy severity: with unspecified retinopathy severity Laterality: unspecified laterality Qualified Code(s): E10.319 - Type 1 diabetes mellitus with unspecified diabetic retinopathy without macular edema Subjective Subjective Patient reports: tolerating a regular diet, voiding w/o difficulty and afebrile Interval history since last seen: Pt is doing well. no headaches. No CP or SOB. no productive cough. no dysuria. no leg pain or swelling. +BM. no diarrhea no changes in swelling in testicle Exam Const General: cooperative, healthy appearing and comfortable Nutritional Appearance: average body habitus Orientation: alert, awake and oriented x3 Other: L: clear H: regular abdom: soft and non tender wound: clean. minimal serous drainage. starting to develop granulation tissue. LE: no swelling/pain/redness Objective Last Vital Signs Temp 36.3 C L 02/22/23 06:20 Pulse 64 02/22/23 06:20 Resp 16 02/22/23 06:20 BP 104/58 L 02/22/23 06:20 Pulse Ox 95 02/22/23 06:20 Laboratory Results - last 24 hr 02/22/23 02/22/23 02/22/23 06:15 06:15 06:15 WBC 8.73 RBC 3.72 L Hgb 11.6 L Hct 33.8 L MCV 91 MCH 31.2 MCHC 34.3 RDW 12.8 Plt Count 341 MPV 10.0 Immature Gran % 0.7 Neutrophils % 71.6 Lymphocytes % 13.4 Monocytes % 9.4 Eosinophils % 4.2 Basophils % 0.7 Nucleated RBC % 0.0 Absolute Neutrophils 6.25 Absolute Lymphocytes 1.17 L Absolute Monocytes 0.82 H Absolute Eosinophils 0.37 Absolute Basophils 0.06 Sodium 140 Potassium 3.8 Chloride 103 Carbon Dioxide 24.7 Anion Gap 12.3 H BUN 25 H Creatinine 1.4 H Est GFR (CKD-EPI 2020) 60.47 Glucose 225 H Calcium 8.7 Magnesium 2.0 C-Reactive Protein 22.01 H Procalcitonin 0.7 Time Spent with Patient Time Spent with Patient: 35-49 minutes Time was spent: preparing to see the patient(eg.review tests), obtaining and/or reviewing separately otained hiistory, ordering medications,tests, procedures, referring, communicating with other health career resource technician, indepentently interpreting results, counseling the patient and care coordination
[2023-02-22 11:01] VITALS: BP 115/69; PULSE 68; TEMP 36; O2SAT 95
[2023-02-22] MEDS: HYDROmorphone 2 MG/ML SYR 0.5 MG IVP (11:38)
[2023-02-22] MEDS: LORazepam 2 MG/ML VIAL 0.5 MG IVP (11:38)
[2023-02-22] MEDS: Ketorolac 10 MG TAB PO ×2 (11:39→18:04)
[2023-02-22 14:51] VITALS: BP 136/80; PULSE 68; TEMP 35.9; O2SAT 97
[2023-02-22] MEDS: CEFEPIME 2 GM in Normal Saline 100 ML IVPB ×2 (14:56→20:26)
--- NOTE | 2023-02-22 16:44 | W.PM.PROGNOT ---
Date of Service Date of service: 02/22/23 Time of Service: 16:45 Assessment and Plan Assessment and plan (1) Perirectal abscess: Start date: 02/20/23 Status: Acute Assessment and plan: S/p I&D by general surgery on 02/20/23. BLood cx with NGTD. Wound culture is growing gram positive damir. Await speciation/sensitivities. Procalcitonin is a little worse today, but clinically he is improving, and leucocytosis has resolved. Continue vancomycin/zosyn. Defer wound care to general surgery. (2) Cellulitis: Start date: 02/13/23 Status: Acute Assessment and plan: As above (3) Type 1 diabetes: Status: Chronic Assessment and plan: With hyperglycemia. I have tightened his carb counting ratio to 1:5 g CHO, increased his lantus to 40 units for tonight. We will continue resistant corrective scale. He is normally on 30 units of lantus at night, 1:7 g CHO, 2:50>150 SSI. We discussed that I thought it would be a good idea to go back to [facility] endocrinology (he had fallen out of follow up due to insurance coverage issues). He does have a CGM. Check A1C. Last A1C was 6.5 Qualifiers: Diabetes mellitus complication status: with ophthalmic complications Diabetes mellitus complication detail: with diabetic retinopathy Diabetic retinopathy severity: with unspecified retinopathy severity Diabetes mellitus macular edema: without macular edema Laterality: unspecified laterality Qualified Code(s): E10.319 - Type 1 diabetes mellitus with unspecified diabetic retinopathy without macular edema (4) CYNTHIA (obstructive sleep apnea): Assessment and plan: Does not use CPAP machine/O2. Follow up as outpatient. (5) Hypothyroidism: Status: Chronic Assessment and plan: Continue levothyroxine. Qualifiers: Hypothyroidism type: acquired Qualified Code(s): E03.9 - Hypothyroidism, unspecified (6) HLD (hyperlipidemia): Assessment and plan: Continue atorvastatin. Qualifiers: Hyperlipidemia type: mixed hyperlipidemia Qualified Code(s): E78.2 - Mixed hyperlipidemia (7) DVT prophylaxis: Status: Acute Assessment and plan: SC enoxaparin (8) Discharge planning issues: Status: Acute Assessment and plan: Full code Continues to require hospitalization. Subjective Subjective Interval history since last seen: Mr Batista states his pain has been well controlled. His BGs have been in 200s. He states that at home he takes lantus 30 units at night, his carb counting ratio is 1:7 and his corrective scale is 2:50>150. He denies dizziness, CP, SOB, n/v. He had a BM, and it was not too uncomfortable. is concerned that he might be discharged before his blood sugars are under better control. Exam Narrative Exam Narrative: General: pleasant middle-aged male who is A&Ox3, NAD, appears comfortable in bed HEENT: EOMI, MMM Heart: RRR, no m/r/g Lungs: CTAB Abdomen: soft, nontender, nondistended Extremities: no edema BLEs Objective Last Vital Signs Temp 35.9 C L 02/22/23 14:51 Pulse 68 02/22/23 14:51 Resp 16 02/22/23 06:20 BP 136/80 02/22/23 14:51 Pulse Ox 97 02/22/23 14:51 Laboratory Results - last 24 hr 02/22/23 02/22/23 02/22/23 06:15 06:15 06:15 WBC 8.73 RBC 3.72 L Hgb 11.6 L Hct 33.8 L MCV 91 MCH 31.2 MCHC 34.3 RDW 12.8 Plt Count 341 MPV 10.0 Immature Gran % 0.7 Neutrophils % 71.6 Lymphocytes % 13.4 Monocytes % 9.4 Eosinophils % 4.2 Basophils % 0.7 Nucleated RBC % 0.0 Absolute Neutrophils 6.25 Absolute Lymphocytes 1.17 L Absolute Monocytes 0.82 H Absolute Eosinophils 0.37 Absolute Basophils 0.06 Sodium 140 Potassium 3.8 Chloride 103 Carbon Dioxide 24.7 Anion Gap 12.3 H BUN 25 H Creatinine 1.4 H Est GFR (CKD-EPI 2020) 60.47 Glucose 225 H Calcium 8.7 Magnesium 2.0 C-Reactive Protein 22.01 H Procalcitonin 0.7 Time Spent with Patient Time Spent with Patient: 25-34 minutes Time was spent: preparing to see the patient(eg.review tests), obtaining and/or reviewing separately otained hiistory, ordering medications,tests, procedures, referring, communicating with other health home care attendant, indepentently interpreting results, counseling the patient and care coordination
--- NOTE | 2023-02-22 19:23 | W.PM.DS.N ---
Date of service: 02/24/23 Time of Service: 12:27 DS: Diagnosis Discharge Diagnosis (1) Retinopathy due to secondary diabetes mellitus: Status: Acute (2) Perirectal abscess: Status: Acute (3) Cellulitis: Status: Acute (4) Hypothyroidism: Status: Chronic (5) Type 1 diabetes: Status: Chronic Discharge Plan Disposition Patient Disposition: Home Condition: Improving Discharge Details Reason For Visit: Perirectal Abscess, IDDM Admit Date/Time: 02/20/23 03:05 Admit Provider: Leobardo Chakraborty Attending Provider: Leobardo Chakraborty Primary Care Provider: Joao Abernathy Hospital Course Hospital Course: Patient is a 52-year-old male who was admitted on 02/20 with a failed outpatient conservative medical management a perirectal abscess. He had undergone an I&D by the ER and had been on oral antibiotics for 3 days prior to his return to the ER with no improvement. He went to the OR and underwent incision and drainage. Please see operative note for details of the procedure. Cultures came back as just staph. He has done well with dressing changes and is tolerating them well at the bedside. We will have home health come and do daily packing changes. He will be discharged home on Augmentin. Yogurt daily while on antibiotics. He did have some increased swelling of the testicle. We did do an ultrasound and have urology consult there is no signs of any Shanique's and is just some compensatory swelling from his significant infection. Patient is doing well and discharged in stable and satisfactory condition. 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 Misc See Rx Instructions .Route Qty: 1 11RF Rx Instructions: As directed (DME) Dexcom G6 Sensor Device See Rx Instructions .Route Qty: 3 11RF Rx Instructions: As directed (DME) Dexcom G6 Transmitter Device See Rx Instructions .Route Qty: 1 11RF Rx Instructions: As directed insulin lispro [Humalog KwikPen Insulin] 100 unit/mL insulin pen See Rx Instructions .ROUTE .COMPLEX MDD 50 units Qty: 15 4RF Rx Instructions: sliding scale as directed 1: 7 grams CHO 2:50>150 levothyroxine 150 mcg tablet 150 mcg PO DAILY Qty: 90 0RF Glucagon Emergency Kit (human) 1 MG kit 1 mg IJ DIRECTED Qty: 1 0RF Rx Instructions: use prn severe hypoglycemia. may repeat dose in 15 minutes. call 911 if no response (DME) Keto-Diastix 1 EACH strip 1 ea Miscellaneous DIRECTED Qty: 50 0RF Rx Instructions: use prn to test urine in setting of severe hypoglycemia, call physician if positive test. insulin glargine [Lantus Solostar U-100 Insulin] 100 unit/mL (3 mL) insulin pen 30 unit SUBCUT HS Patient Comments: INJECT 32 UNITS (0.32 ML) SUBCUTANEOUSLY ONCE DAILY Discharge Instructions Additional Instructions: -wet to dry dressing changes daily: -take pain meds 60 mins prior to dressing changes - remove packing - shower. it is ok for water to run into the wound. -repack wound -Keep an ice bag on the incision. 20 minutes on and 20 minutes off. Ice keeps the swelling down and swelling causes pain. Make sure you wrap the ice pack in a towel and don't apply directly to the skin. -No driving for 3 days or of you are taking narcotic pain medications. -Follow-up with Dr. John in 2:45pm in [facility]. [phone] -diet: controlled carbs -no straining to move bowels -pain meds are very constipating: if you do not move your bowels daily take a dose of OTC Miralax at bedtime -You may find that your appetite is smaller. Eat 3-6 small meals throughout the day. It is important to drink lots of water after surgery, 6-10 glasses a day. -If you were given an incentive spirometry (breathing product inspection coordinator?), continue to do this 10x/hour while awake. -We do want you up walking, at least 5-6 times per day. This is very important to prevent pneumonia and blood clots. You can climb stairs, take them slowly. -No lifting over 5 pounds. -You may find that you are very tired after surgery- this is normal. -please do not smoke for a minimum of 72 hours after surgery. -Packing Supplies gauze ABD or Dena-pads Q tips Take an oxycodone and ativen 1 hour prior to dressing change. Oxycodone WILL make you constipatped! Use Miralax for constipation/avoid staining to move your bowels. ? Pain Management Protocol -Tylenol 1000mg every 6 hours.? Tylenol is an anti-inflammatory. -Ibuprofen 600mg every 6hrs prn pain.? Do not take aspirin while taking this medication.? Take this medication w/ food. Do not take on an empty stomach. -Use ice.? This also helps to keep swelling down *?It is important to take these medications to keep the swelling down.? Swelling is what causes pain. --Skelaxin: muscle relaxant you can take as needed for pain >7. - Do NOT strain to move your bowels!? This is like lifting 50#'s.? Mirlax daily to prevent constipation. All these medications work in concert together?to produce a symphony of pain control.? You need to take them as a TOGETHER in order to control the pain,?NOT just pick and choose which one you want to take.? There is not one thing that completely controls pain.? AND there are multiple factors that produce the sensation of pain- so no one thing is going to control it. So in order to have a symphony of pain control- you need to use ALL of them together. ? WET-to-DRY Dressing Changes ?Your health care provider has covered your wound with a wet-to-dry dressing. With this type of dressing, a wet (or moist) gauze dressing is put on your wound and allowed to dry. Wound drainage and tissue can be removed when you take off the old dressing. Follow any instructions you are given on how to change the dressing. Use this sheet as a reminder. What to Expect at Home Your provider will tell you how often you should change your dressing at home. As the wound heals, you should not need as much gauze or packing gauze. Removing the Old Dressing Follow these steps to remove your dressing: ? Wash your hands thoroughly with soap and warm water before and after each dressing change. Remove the old dressing. If it is sticking to your skin, wet it with warm water to loosen it. ? Remove the gauze pads or packing tape from inside your wound. ? Changing Your Dressing Follow these steps to put a new dressing on: ? Place the gauze pads or packing tape in your wound. Carefully fill in the wound and any spaces under the skin.? Use a cotton tip applicator to gently push the packing material into the wound. ? Cover the wet gauze or packing tape with a large dry dressing pad. Use tape or rolled gauze to hold this dressing in place. ? Wash your hands again when you are finished. When to Call the Doctor Call your doctor if you have any of these changes around your wound: ? Worsening redness ? More pain ? Swelling ? Bleeding ? It is larger or deeper ? It looks dried out or dark ? The drainage is increasing ? The drainage has a bad smell Also call your doctor if: ? Your temperature is 100.5?F (38?C), or higher, for more than 4 hours ? Drainage is coming from or around the wound ? Drainage is not decreasing after 3 to 5 days ? Drainage is increasing ? Drainage becomes thick, andre, yellow, or smells bad ? Stand Alone Forms: Nursing Discharge Form Referrals: Joao Abernathy NP [Primary Care Provider] - Kaye John DO [OSTEOPATHIC DOCTOR] - Activity:: see above Equipment/Supplies:: dressing supplies Diet:: Carb Counting Discharge Orders Discharge Orders: Discharge Order (Routine); Ordered 02/24/23 Ordered By: Kaye John DS: Summary Time Spent with Patient providing and/or coordinating discharge services: Greater than 30 minutes Status at Discharge Functional status at discharge: independent ambulation Overall status at discharge: patient is progressing back to baseline Mental Status: mental status grossly normal Speech and Movement: speech and movement normal Mood: congruent mood Affect: normal affect Exam Psych Mental Status: mental status grossly normal Speech and Movement: speech and movement normal Mood: congruent mood Affect: normal affect DS: Data Vitals/I&O Vitals and I&O: Vital Signs Temperature 35.9 C L 02/22/23 14:51 Temperature Source Tympanic 02/22/23 14:51 Pulse 68 02/22/23 14:51 Pulse Rhythm Regular 02/22/23 14:50 Respiratory Rate 16 02/22/23 06:20 Respiratory Effort Normal 02/22/23 14:50 Respiratory Depth Normal 02/22/23 14:50 Respiratory Pattern Normal 02/22/23 14:50 Blood Pressure 136/80 02/22/23 14:51 Blood Pressure Mean 58 02/20/23 03:16 Blood Pressure Position Supine 02/19/23 23:20 Pulse Oximetry 97 02/22/23 14:51 Respiratory End-tidal CO2 31 02/20/23 18:27 Oxygen Delivery Method Room Air 02/22/23 14:51 Oxygen Flow Rate 0 02/22/23 14:51 Pain Level 1 02/22/23 14:51 Comment rn notified of low bp 02/21/23 11:08 Intake & Output 02/21/23 02/22/23 02/22/23 23:59 11:59 23:59 Intake Total 1750 / 3416 900 / 1000 100 / 1000 Output Total 675 / 675 Balance 1075 / 2741 900 / 1000 100 / 1000 Intake: IV 1500 / 3166 500 / 600 100 / 600 Oral 250 / 250 400 / 400 Output: Urine 675 / 675 Other: Urine Color Light Tracey Pale Yellow Urine Appearance Clear Clear Clear Urine Odor None Stool Size Moderate Data Completed and Pending Labs on day of discharge: Labs from last 24 hours 02/22/23 02/22/23 02/22/23 06:15 06:15 06:15 WBC 8.73 RBC 3.72 L Hgb 11.6 L Hct 33.8 L MCV 91 MCH 31.2 MCHC 34.3 RDW 12.8 Plt Count 341 MPV 10.0 Immature Gran % 0.7 Neutrophils % 71.6 Lymphocytes % 13.4 Monocytes % 9.4 Eosinophils % 4.2 Basophils % 0.7 Nucleated RBC % 0.0 Absolute Neutrophils 6.25 Absolute Lymphocytes 1.17 L Absolute Monocytes 0.82 H Absolute Eosinophils 0.37 Absolute Basophils 0.06 Sodium 140 Potassium 3.8 Chloride 103 Carbon Dioxide 24.7 Anion Gap 12.3 H BUN 25 H Creatinine 1.4 H Est GFR (CKD-EPI 2020) 60.47 Glucose 225 H Calcium 8.7 Magnesium 2.0 C-Reactive Protein 22.01 H Procalcitonin 0.7 02/21/23 18:05 Nose MRSA Screen - Pending Preliminary micro results at discharge 02/20/23 17:35 Anaerobic Culture - Preliminary Perirectal Anaerobic mixed growth 02/20/23 17:35 Wound Culture - Preliminary Perirectal Gram Positive Lucy,Mixed 02/20/23 00:55 Blood Culture - Preliminary Blood NO GROWTH 48 HOURS 02/20/23 00:48 Blood Culture - Preliminary Blood NO GROWTH 48 HOURS 02/21/23 18:05 MRSA Screen - Pending Nose PFSH All Active Problems (Updated 02/23/23 @ 12:58 by Kaye John DO) Scrotal edema (Acute) Discharge planning issues (Acute) DVT prophylaxis (Acute) Retinopathy due to secondary diabetes mellitus (Acute) Perirectal abscess (Acute) Cellulitis (Acute) Contact dermatitis (Acute) Hypothyroidism (Chronic) Type 1 diabetes (Chronic) Multiple nevi (Acute) Medical History (Updated 02/23/23 @ 12:58 by Kaye John DO) Diabetic ketoacidosis, type I (09/14/14) DKA (diabetic ketoacidoses) 05/2021- presented with NL blood sugar and high urine keytones HLD (hyperlipidemia) Leukocytosis (09/14/14) CYNTHIA (obstructive sleep apnea) hasn't been a problem since he lost weight PDR (proliferative diabetic retinopathy) procedure around 1995 for repair Surgical History (Updated 02/21/23 @ 07:43 by Cheyenne Nelson) Status post incision and drainage (~02/2023) perirectal abscess Family History Mother Depression Father No problems noted. Sister No problems noted. Son No problems noted. Son No problems noted. Daughter No problems noted. Maternal Grandfather , 80's No problems noted. Paternal Grandfather , 92 No problems noted. Maternal Grandmother , 80's No problems noted. Paternal Grandmother , 60's No problems noted. Social History Smoking/Tobacco Use Status: Never Second Hand Exposure: No Smoking risk assessment performed?: Yes Alcohol Intake: never Drug use: Never Caregiver/Support person: No Household members: spouse and children Housing: house Communication Needs: None Do you need help understanding health information?: Rarely Pets and animals: Yes Pets and animals: cat(s) Sexually active: Yes Do you think of yourself as: straight/heterosexual Current gender identity: male What is your relationship status?: How often do you talk on the phone with friends or family?: once per week How often do you get together with friends or relatives?: once per week How often do you attend episcopalian or methodist services?: 4 or more times per year Do you belong to any clubs or organized social groups?: no Panel score (0-1 are the most socially isolated patients): 2 What type of physical activity do you participate in: walking Duration: < 15 minutes/day Frequency: 3-4 times per week Samia/Buddhism: Zoroastrianism Special samia needs: No Seatbelt use: always Helmet use: Yes Helmet use: always Drive intox or ride w/intox cdl bulk driver: No Do you feel safe at home: Yes Do you feel safe in your relationship?: Yes Time Spent with Patient Time Spent with Patient: 45-69 minutes Time was spent: preparing to see the patient(eg.review tests), obtaining and/or reviewing separately otained hiistory, ordering medications,tests, procedures, referring, communicating with other health rn intensive care unit, indepentently interpreting results, counseling the patient and care coordination
[2023-02-22 19:35] VITALS: BP 122/73; PULSE 75; RESP 20; TEMP 35.7; O2SAT 97
--- NOTE | 2023-02-22 19:42 | PDOC.HHF2F ---
Home Health Referral Home Health Orders Clinical synopsis of why skilled professionals are needed: daily dressing changes for dana-rectal abscess Registered Nurse: Check all that apply Instruct on new or changed medication(s)/assess compliance: Ordered Assess for exacerbation of medical condition, instruct patient/caregivers on signs and symptoms to report for early detection: Ordered Assess wound for signs and symptoms of infection, instruct on wound care and/or provide skilled wound care consisting of: daily wet to dry dressing changes/wound packing Home Bound Status Patient has a condition such that leaving home is medically contraindicated (Describe): pt cannot drive due to pain/and pain medication use (narcotics) Describe why leaving home would require a considerable and taxing effort: Side effects from pain medication (sedation/drowsiness) and Requires frequent rest periods Encounter Date and Reason: I certify that a FTF encounter for this patient was performed on February 23, 2023 and that such encounter was related to the primary reason the patient requires home health services. The encounter was conducted in the following manner: By me as the certifying physician, SCHOOL PHOTOGRAPH EDITOR, PA or By an inpatient physician, SCHOOL PHOTOGRAPH EDITOR or PA during an inpatient stay who communicated findings to me, Certification And Authentication I certify that I composed the above information based on my clinical judgment relating to this patient's medical condition and, if applicable, clinical findings communicated to me by the NPP or inpatient physician who performed the FTF encounter. Name of Provider that will be monitoring home health services: Kaye John
[2023-02-22] MEDS: Atorvastatin 40 MG TAB 80 MG PO (20:25)
[2023-02-22] MEDS: Insulin Glargine 300 UNITS/3 ML PEN 40 UNITS SC (20:27)
[2023-02-22 23:51] VITALS: BP 130/79; PULSE 71; RESP 20; TEMP 35.8; O2SAT 96
[2023-02-23] VITALS (7 sets, daily range): BP systolic 127–138; BP diastolic 76–82; PULSE 66–98; RESP 14–20; TEMP 35.1–37.2; O2SAT 94–96
[2023-02-23] MEDS: Ketorolac 10 MG TAB PO ×4 (01:28→17:07)
[2023-02-23] MEDS: Acetaminophen 500 MG TAB 1000 MG PO ×4 (01:28→21:40)
[2023-02-23] MEDS: VANCOMYCIN/WATER (PEG) 1.5 GM/300 ML BAG IV (01:29)
[2023-02-23] MEDS: Normal Saline Flush 10 ML SYR IVP ×3 (01:30→10:08)
[2023-02-23] MEDS: CEFEPIME 2 GM in Normal Saline 100 ML IVPB ×3 (05:48→20:55)
[2023-02-23] MEDS: Levothyroxine 75 MCG TAB 150 MCG PO (05:48)
[2023-02-23 07:01] LABS: Abs Immature Grans 0.05 10^3/uL (0.0-0.06); Absolute Basophil Count 0.06 10^3/uL (0.0-0.2); Absolute Eosinophil Count 0.33 10^3/uL (0.0-0.7); Absolute Lymphocyte Count 1.19 10^3/uL (1.2-3.4); Absolute Monocyte Count 0.71 10^3/uL (0.1-0.8); Absolute Neutrophil Count 5.72 10^3/uL (1.2-6.7); Basophils % 0.7; Eosinophils % 4.1; HCT 35.2 % (40.0-50.0); Immature Grans % 0.6; Lymphocytes % 14.8; MCH 30.6 pg (27.0-33.0); MCHC 34.1 % (32.0-36.0); MCV 90 fL (80-95); Monocytes % 8.8; Platelet Count 374 10^3/uL (130-400); RBC 3.92 10^6/uL (4.36-5.78); RDW 13.1 % (11.8-14.1); WBC 8.06 10^3/uL (4.4-10.8)
[2023-02-23 07:09] LABS: Hemoglobin A1C 6.9 % (<5.7)
[2023-02-23 07:21] LABS: Anion Gap 8.6 mmol/L (3-11); BUN 17 mg/dL (7-18); C-Reactive Protein 10.81 mg/dL (0.0-0.3); CO2 27.4 mmol/L (21.0-32.0); CREATININE 0.9 mg/dL (0.70-1.30); Calcium 8.5 mg/dL (8.5-10.1); Chloride 106 mmol/L (98-107); Estimated GFR 102.76 (mL/min/1.73m2); Glucose 139 mg/dL (74-106); Magnesium 1.7 mg/dL (1.8-2.4); Potassium 3.3 mmol/L (3.5-5.1); Sodium 142 mmol/L (136-145)
[2023-02-23] MEDS: Polyethylene Glycol 3350 17 GM PACKET PO (07:38)
[2023-02-23] MEDS: Enoxaparin 40 MG/0.4 ML SYR SC (07:38)
[2023-02-23] MEDS: Insulin Aspart 300 UNITS/3 ML PEN SC ×6 (08:07→20:57)
[2023-02-23] MEDS: Potassium Chloride 10 MEQ CAPCR 40 MEQ PO (09:22)
[2023-02-23] MEDS: HYDROmorphone 2 MG/ML SYR 0.5 MG IVP (10:07)
[2023-02-23] MEDS: LORazepam 2 MG/ML VIAL 0.5 MG IVP (10:08)
--- NOTE | 2023-02-23 12:56 | PGE_ITS ---
Date of Service Date of service: 02/23/23 Time of Service: 12:56 Assessment and Plan Assessment and plan (1) Perirectal abscess: Status: Acute (2) Cellulitis: Status: Acute (3) Type 1 diabetes: Status: Chronic Qualifiers: Diabetes mellitus complication detail: with diabetic retinopathy Diabetes mellitus complication status: with ophthalmic complications Diabetes mellitus macular edema: without macular edema Diabetic retinopathy severity: with unspecified retinopathy severity Laterality: unspecified laterality Qualified Code(s): E10.319 - Type 1 diabetes mellitus with unspecified diabetic retinopathy without macular edema (4) Hypothyroidism: Status: Chronic Qualifiers: Hypothyroidism type: acquired Qualified Code(s): E03.9 - Hypothyroidism, unspecified (5) Scrotal edema: Status: Acute Subjective Subjective Interval history since last seen: Pt is doing well. no headaches. No CP or SOB. no productive cough. no dysuria. no leg pain or swelling. Patient is doing well other than he notes increased swelling in his testicles. Exam Narrative Exam Narrative: PHYSICAL EXAM GENERAL APPEARANCE: Alert, healthy appearance, oriented, x 3,? in no acute distress HYDRATION: Well hydrated HEAD, EYES, EARS, NECK, THROAT: Head is normocephalic, pupils equal, round, reactive to light and accommodation, ocular movement intact, sclera clear and no jaundice. ?Dentition intact. No thrush LUNGS: normal respiration/normal chest excursion. ?Clear to auscultation bilaterally. ?No wheeze. ?HEART: Regular rate and rhythm. no murmurs EXTREMITY: No edema or cyanosis.? no leg pain, redness, swelling.? ABDOMEN: soft and non-tender to palpation.? Normal bowel sounds.? Wound was packed by nursing today. The left testicle there is noticeably more fluid in the scrotum. There is less tenderness and edema in the scrotum itself. Objective Last Vital Signs Temp 35.3 C L 02/23/23 11:27 Pulse 76 02/23/23 11:27 Resp 18 02/23/23 11:27 BP 138/80 02/23/23 11:27 Pulse Ox 95 02/23/23 11:27 Laboratory Results - last 24 hr 02/23/23 02/23/23 02/23/23 06:05 06:05 06:05 WBC 8.06 RBC 3.92 L Hgb 12.0 L Hct 35.2 L MCV 90 MCH 30.6 MCHC 34.1 RDW 13.1 Plt Count 374 MPV 10.0 Immature Gran % 0.6 Neutrophils % 71.0 Lymphocytes % 14.8 Monocytes % 8.8 Eosinophils % 4.1 Basophils % 0.7 Nucleated RBC % 0.0 Absolute Neutrophils 5.72 Absolute Lymphocytes 1.19 L Absolute Monocytes 0.71 Absolute Eosinophils 0.33 Absolute Basophils 0.06 Sodium 142 Potassium 3.3 L Chloride 106 Carbon Dioxide 27.4 Anion Gap 8.6 BUN 17 Creatinine 0.9 Est GFR (CKD-EPI 2020) 102.76 Glucose 139 H Hemoglobin A1c 6.9 H Calcium 8.5 Magnesium 1.7 L C-Reactive Protein 10.81 H Time Spent with Patient Time Spent with Patient: 35-49 minutes Time was spent: preparing to see the patient(eg.review tests), obtaining and/or reviewing separately otained hiistory, ordering medications,tests, procedures, referring, communicating with other health patient care representative, indepentently interpreting results, counseling the patient and care coordination
--- NOTE | 2023-02-23 15:14 | W.PM.PROGNOT ---
Date of Service Date of service: 02/23/23 Time of Service: 15:14 Assessment and Plan Assessment and plan (1) Perirectal abscess: Status: Acute Assessment and plan: clinically improving. afebrile, normal WBC, CRP declining (10.8 down from >25); he remains on Cefepime for mixed anaerobic infection; Dr. John has requested urology consultation and ordered testicular US for tomorrow. continue w/ pain medications. I would recommend addition of ketorolac or other NSAID to help w/ the swelling as well as the pain. (2) Type 1 diabetes: Status: Chronic Assessment and plan: BG ranging 121 to 216 today. He remains on basal and bolus insulin w/ CHO coverage and sliding scale. Currently on Lantus 40 units nightly(home dose is 30) and CHO coverage at 1:5 ratio along w/ SSI resistant scale. Qualifiers: Diabetes mellitus complication status: with ophthalmic complications Diabetes mellitus complication detail: with diabetic retinopathy Diabetic retinopathy severity: with unspecified retinopathy severity Diabetes mellitus macular edema: without macular edema Laterality: unspecified laterality Qualified Code(s): E10.319 - Type 1 diabetes mellitus with unspecified diabetic retinopathy without macular edema (3) CYNTHIA (obstructive sleep apnea): Assessment and plan: Does not use CPAP machine/O2. Follow up as outpatient. (4) Hypothyroidism: Status: Chronic Assessment and plan: Continue levothyroxine. TSH 0.36 Qualifiers: Hypothyroidism type: acquired Qualified Code(s): E03.9 - Hypothyroidism, unspecified (5) HLD (hyperlipidemia): Assessment and plan: Continue atorvastatin. Qualifiers: Hyperlipidemia type: mixed hyperlipidemia Qualified Code(s): E78.2 - Mixed hyperlipidemia (6) DVT prophylaxis: Status: Acute Assessment and plan: SC enoxaparin (7) Discharge planning issues: Status: Acute Assessment and plan: Full code Continues to require hospitalization but may be dc home w/ home health services tomorrow once urology has seen him and his testicular US is complete. Dr. John has set discharge pending the above. Subjective Subjective Interval history since last seen: Patient is still having discomfort over his perineum and now he has swelling of his scrotum, particularly the left testis. Dr. John has asked for urology consult and has ordered US of his testicles. He remains on Cefepime for mixed anaerobic infection of his perirectal abscess. Exam Narrative Exam Narrative: Patient lying in bed, no acute distress, he is visiting with his Perineum is tender, he has bandage over the left perirectal area and has packing in the wound which I did not remove to examine the wound Scrotum is swollen but penis is not, he has left testicular swelling and discomfort, right testis is normal architecture Objective Last Vital Signs Temp 35.3 C L 02/23/23 11:27 Pulse 76 02/23/23 11:27 Resp 18 02/23/23 11:27 BP 138/80 02/23/23 11:27 Pulse Ox 95 02/23/23 11:27 Laboratory Results - last 24 hr 02/23/23 02/23/23 02/23/23 06:05 06:05 06:05 WBC 8.06 RBC 3.92 L Hgb 12.0 L Hct 35.2 L MCV 90 MCH 30.6 MCHC 34.1 RDW 13.1 Plt Count 374 MPV 10.0 Immature Gran % 0.6 Neutrophils % 71.0 Lymphocytes % 14.8 Monocytes % 8.8 Eosinophils % 4.1 Basophils % 0.7 Nucleated RBC % 0.0 Absolute Neutrophils 5.72 Absolute Lymphocytes 1.19 L Absolute Monocytes 0.71 Absolute Eosinophils 0.33 Absolute Basophils 0.06 Sodium 142 Potassium 3.3 L Chloride 106 Carbon Dioxide 27.4 Anion Gap 8.6 BUN 17 Creatinine 0.9 Est GFR (CKD-EPI 2020) 102.76 Glucose 139 H Hemoglobin A1c 6.9 H Calcium 8.5 Magnesium 1.7 L C-Reactive Protein 10.81 H Time Spent with Patient Time Spent with Patient: 25-34 minutes Time was spent: preparing to see the patient(eg.review tests), ordering medications,tests, procedures, referring, communicating with other health pharmacy customer care specialist, indepentently interpreting results, counseling the patient and care coordination
[2023-02-23] MEDS: Methocarbamol 750 MG TAB PO (20:54)
[2023-02-23] MEDS: Insulin Glargine 300 UNITS/3 ML PEN 35 UNITS SC (20:59)
[2023-02-23] MEDS: Atorvastatin 40 MG TAB 80 MG PO (21:40)
[2023-02-24] MEDS: Acetaminophen 500 MG TAB 1000 MG PO ×2 (00:36→07:53)
[2023-02-24] MEDS: Ketorolac 10 MG TAB PO ×3 (00:36→11:17)
[2023-02-24 03:30] VITALS: BP 127/73; PULSE 69; RESP 18; TEMP 36.1; O2SAT 95
[2023-02-24] MEDS: Levothyroxine 75 MCG TAB 150 MCG PO (06:31)
[2023-02-24] MEDS: CEFEPIME 2 GM in Normal Saline 100 ML IVPB (06:32)
[2023-02-24 06:34] LABS: Abs Immature Grans 0.06 10^3/uL (0.0-0.06); Absolute Basophil Count 0.06 10^3/uL (0.0-0.2); Absolute Eosinophil Count 0.35 10^3/uL (0.0-0.7); Absolute Lymphocyte Count 1.71 10^3/uL (1.2-3.4); Absolute Monocyte Count 0.69 10^3/uL (0.1-0.8); Absolute Neutrophil Count 4.23 10^3/uL (1.2-6.7); Basophils % 0.8; Eosinophils % 4.9; HCT 36.7 % (40.0-50.0); HGB 12.4 g/dL (13.5-17.5); Immature Grans % 0.8; Lymphocytes % 24.1; MCH 30.4 pg (27.0-33.0); MCHC 33.8 % (32.0-36.0); MCV 90 fL (80-95); MPV 9.2 fL (8.0-11.0); Monocytes % 9.7; Neutrophils % 59.7; Platelet Count 401 10^3/uL (130-400); RBC 4.08 10^6/uL (4.36-5.78); RDW-SD 43.1 fL
[2023-02-24 06:35] VITALS: BP 130/82; PULSE 72; RESP 18; TEMP 36; O2SAT 96
[2023-02-24 06:54] LABS: ALT 13 U/L (16-63); AST 17 U/L (15-37); Albumin 1.9 g/dL (3.4-5.0); Alkaline Phosphatase 60 U/L (46-116); Anion Gap 4.9 mmol/L (3-11); BUN 16 mg/dL (7-18); Bilirubin, Total 0.2 mg/dL (0.2-1.0); C-Reactive Protein 6.48 mg/dL (0.0-0.3); CO2 32.1 mmol/L (21.0-32.0); CREATININE 0.8 mg/dL (0.70-1.30); Calcium 8.6 mg/dL (8.5-10.1); Chloride 106 mmol/L (98-107); Estimated GFR 106.48 (mL/min/1.73m2); Glucose 68 mg/dL (74-106); Potassium 3.3 mmol/L (3.5-5.1); Sodium 143 mmol/L (136-145); Total Protein 5.5 g/dL (6.4-8.2)
[2023-02-24 07:49] LABS: Lab Add On Test DONE
[2023-02-24] MEDS: Enoxaparin 40 MG/0.4 ML SYR SC (07:53)
[2023-02-24] MEDS: Potassium Chloride 10 MEQ CAPCR 40 MEQ PO (07:53)
[2023-02-24 07:59] LABS: Magnesium 1.8 mg/dL (1.8-2.4)
--- NOTE | 2023-02-24 08:00 | DI.US_ITS ---
Exam(s) US SCROTUM EXAM: US SCROTUM CLINICAL HISTORY: Perirectal abscess/type 1 diabetes/increase in joanne. TECHNIQUE: Scrotal ultrasound performed using grayscale, color-flow and spectral Doppler analysis. COMPARISON: CT CT PELVIC W from 02/20/2023 FINDINGS: Right testicle: 4.4 x 2.7 x 3 cm Echogenicity: Normal. Contour: Smooth. Mass: None seen. Microlithiasis: None. Hydrocele: There is a small hydrocele measuring 2.9 x 1.9 x 2.5 cm Variocele: None. Hernia: No peristalsing bowel loop identified. Epididymis: Normal. Left testicle: 4.2 x 2 x 3.4 cm Echogenicity: Normal. Contour: Smooth. Mass: None seen. Microlithiasis: None. Hydrocele: There is a small hydrocele measuring 3.4 x 1.9 x 3.5 cm. Variocele: None. Hernia: No peristalsing bowel loop identified. Epididymis: Normal. DOPPLER: Color: Symmetric and uniform, no hyperemia. Skin: There is hyperemia in the scrotal soft tissues without focal fluid collection seen in the scrot al tissues. This examination does not evaluate the area of the perirectal abscess as identified on t he CT scan from 02/20/2023. IMPRESSION: 1. Normal appearing bilateral testicles. 2. Mild edema in the soft tissues of the scrotum. 3. This examination does not evaluate the area of the perirectal abscess as identified on the CT scan from 02/20/2023. DATA REPOSITORY:
--- NOTE | 2023-02-24 08:29 | PDOC.CMPRO ---
Date of service: 02/24/23 Time of Service: 08:29 Care Management Progress Note Progress Note Text Progress Note Text: S/O: A:Bjorn is a 52 year old man admitted on 02/20/23 with a scrotal abscess P:Bjorn will likely be discharged home with new home health services for daily dressing changes, He will follow up with his surgeon, PCP and plan of care and transport with family. CM will follow and continue to assess for discharge needs.
[2023-02-24] MEDS: Potassium Chloride 10 MEQ CAPCR 20 MEQ PO (10:30)
[2023-02-24] MEDS: Insulin Aspart 300 UNITS/3 ML PEN SC (12:43)
--- NOTE | 2023-02-24 12:43 | UCONE_ITS ---
Date of service: 02/24/23 Time of Service: 12:43 Assessment and Plan Assessment and plan (1) Scrotal edema: Status: Acute Assessment and plan: At this point, I do not find any evidence of a scrotal infection that would require any type of drainage procedure. I believe the scrotal swelling is simply reactionary from his nearby infection. Given his history of labile diabetes, we need to be mindful that he is at risk for developing Shanique's gangrene. While no procedure is recommended right now, I would like to see this gentleman back if there are any additional changes to his perineum/scrotum. History of Present Illness History of Present Illness Chief Complaint: Scrotal swelling Narrative: This is a 52-year-old gentleman who has a history of diabetes. He was admitted to the hospital with a perirectal abscess. He underwent an incision and drainage procedure about 3 days ago. He has been responding to antibiotic and wound care therapy. He developed scrotal swelling and I been asked to see this gentleman to weigh in as to whether or not there is an underlying scrotal infection. He is not having any fevers or chills. He has no testicular pain. Review of Systems Narrative: No fevers or chills Retinopathy Hypotyhroidism No shortness of breath, cough or hemoptysis No chest pain or palpitations No nausea, vomiting, hepatitis, ulcers, jaundice No seizures, strokes No bleeding disorders or anemia No gout PFSH All Active Problems (Updated 02/23/23 @ 12:58 by Kaye John DO) Scrotal edema (Acute) Discharge planning issues (Acute) DVT prophylaxis (Acute) Retinopathy due to secondary diabetes mellitus (Acute) Perirectal abscess (Acute) Cellulitis (Acute) Contact dermatitis (Acute) Hypothyroidism (Chronic) Type 1 diabetes (Chronic) Multiple nevi (Acute) Medical History (Updated 02/23/23 @ 12:58 by Kaye John DO) Diabetic ketoacidosis, type I (09/14/14) DKA (diabetic ketoacidoses) 05/2021- presented with NL blood sugar and high urine keytones HLD (hyperlipidemia) Leukocytosis (09/14/14) CYNTHIA (obstructive sleep apnea) hasn't been a problem since he lost weight PDR (proliferative diabetic retinopathy) procedure around 1995 for repair Surgical History (Updated 02/21/23 @ 07:43 by Cheyenne Nelson) Status post incision and drainage (~02/2023) perirectal abscess Family History Mother Depression Father No problems noted. Sister No problems noted. Son No problems noted. Son No problems noted. Daughter No problems noted. Maternal Grandfather , 80's No problems noted. Paternal Grandfather , 92 No problems noted. Maternal Grandmother , 80's No problems noted. Paternal Grandmother , 60's No problems noted. Social History Smoking/Tobacco Use Status: Never Second Hand Exposure: No Smoking risk assessment performed?: Yes Alcohol Intake: never Drug use: Never Caregiver/Support person: No Household members: spouse and children Housing: house Communication Needs: None Do you need help understanding health information?: Rarely Pets and animals: Yes Pets and animals: cat(s) Sexually active: Yes Do you think of yourself as: straight/heterosexual Current gender identity: male What is your relationship status?: How often do you talk on the phone with friends or family?: once per week How often do you get together with friends or relatives?: once per week How often do you attend baptist or rastafari services?: 4 or more times per year Do you belong to any clubs or organized social groups?: no Panel score (0-1 are the most socially isolated patients): 2 What type of physical activity do you participate in: walking Duration: < 15 minutes/day Frequency: 3-4 times per week Samia/Mormonism: Denominational Special samia needs: No Seatbelt use: always Helmet use: Yes Helmet use: always Drive 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 He does not appear septic or toxic His vital signs are documented elsewhere The scrotum is enlarged but is not erythematous or ecchymotic. There is no fluctuance. The testes are palpable and are soft and nontender He is awake and alert I reviewed his scrotal ultrasound on the PACS system. I do not see any fluid collections worrisome for an abscess. Results Last Vital Signs Temp 36.0 C L 02/24/23 06:35 Pulse 72 02/24/23 06:35 Resp 18 02/24/23 06:35 BP 130/82 02/24/23 06:35 Pulse Ox 96 02/24/23 06:35 Labs 02/24/23 06:18 02/24/23 06:18 Labs: Laboratory Results - last 24 hr 02/24/23 02/24/23 02/24/23 06:18 06:18 06:18 WBC 7.10 RBC 4.08 L Hgb 12.4 L Hct 36.7 L MCV 90 MCH 30.4 MCHC 33.8 RDW 13.0 Plt Count 401 H MPV 9.2 Immature Gran % 0.8 Neutrophils % 59.7 Lymphocytes % 24.1 Monocytes % 9.7 Eosinophils % 4.9 Basophils % 0.8 Nucleated RBC % 0.0 Absolute Neutrophils 4.23 Absolute Lymphocytes 1.71 Absolute Monocytes 0.69 Absolute Eosinophils 0.35 Absolute Basophils 0.06 Sodium 143 Potassium 3.3 L Chloride 106 Carbon Dioxide 32.1 H Anion Gap 4.9 BUN 16 Creatinine 0.8 Est GFR (CKD-EPI 2020) 106.48 Glucose 68 L Calcium 8.6 Magnesium Total Bilirubin 0.2 AST 17 ALT 13 L Alkaline Phosphatase 60 C-Reactive Protein 6.48 H Total Protein 5.5 L Albumin 1.9 L Add-On Test Request DONE 02/24/23 06:18 WBC RBC Hgb Hct MCV MCH MCHC RDW Plt Count MPV Immature Gran % Neutrophils % Lymphocytes % Monocytes % Eosinophils % Basophils % Nucleated RBC % Absolute Neutrophils Absolute Lymphocytes Absolute Monocytes Absolute Eosinophils Absolute Basophils Sodium Potassium Chloride Carbon Dioxide Anion Gap BUN Creatinine Est GFR (CKD-EPI 2020) Glucose Calcium Magnesium 1.8 Total Bilirubin AST ALT Alkaline Phosphatase C-Reactive Protein Total Protein Albumin Add-On Test Request
--- NOTE | 2023-02-24 13:56 | PDOC.CMDIS ---
Date of service: 02/24/23 Time of Service: 13:56 LACE Index Scoring Tool Questions: Length of Stay (in days): 4 - 6 Was the patient admitted via the E.D.?: Yes Comorbidities: Diabetes w/o Complication E.D. Visits: 1 Answers: Total Score: 9 Risk of Readmission: Low Risk Care Management Discharge Plan Reason for Hospitalization: Perirectal Abscess, IDDM Discharge Plan: Thor will be discharged home with new home health services for daily wound care. He will follow up with his surgeon, PCP and plan of care as prescribed and transport with his . Patient/Family Education Needs: review discharge instructions, limitations, activity, follow up plan, discuss Ask Me Three Services Needed at Discharge: Home Health Care Services
--- NOTE | 2023-02-24 14:06 | W.PM.DS.N ---
Date of service: 02/24/23 Time of Service: 12:00 DS: Diagnosis Discharge Diagnosis (1) Scrotal edema: Status: Acute Discharge Plan Disposition Patient Disposition: Home Condition: Improving Discharge Details Reason For Visit: Perirectal Abscess, IDDM Admit Date/Time: 02/20/23 03:05 Admit Provider: Leobardo Chakraborty Attending Provider: Leobardo Chakraborty Primary Care Provider: Joao Abernathy Hospital Course Hospital Course: Patient is a 52-year-old male who was admitted on 02/20 with a failed outpatient conservative medical management a perirectal abscess. He had undergone an I&D by the ER and had been on oral antibiotics for 3 days prior to his return to the ER with no improvement. He went to the OR and underwent incision and drainage. Please see operative note for details of the procedure. Cultures came back as just staph. He has done well with dressing changes and is tolerating them well at the bedside. We will have home health come and do daily packing changes. He will be discharged home on Augmentin. Yogurt daily while on antibiotics. He did have some increased swelling of the testicle. We did do an ultrasound and have urology consult there is no signs of any Shanique's and is just some compensatory swelling from his significant infection. Patient is doing well and discharged in stable and satisfactory condition. Please see discharge orders Home Meds and New Rx's Prescriptions: New metaxalone 800 mg tablet 800 mg PO TID PRNQty: 60 2RF oxycodone 5 mg tablet 5 mg PO Q4H PRNQty: 14 0RF amoxicillin-pot clavulanate 875-125 mg tablet 1 tab PO BID Qty: 6 0RF lorazepam [Ativan] 0.5 mg tablet 0.5 mg PO DAILY PRNQty: 10 0RF Rx Instructions: take one 60 mins prior to dressing change Continued lisinopril 5 mg tablet 2.5 mg PO DAILY Qty: 90 3RF atorvastatin 80 mg tablet 80 mg PO QPM Qty: 90 4RF (DME) Dexcom G6 Credit Authorizer Misc See Rx Instructions .Route Qty: 1 11RF Rx Instructions: As directed (DME) Dexcom G6 Sensor Device See Rx Instructions .Route Qty: 3 11RF Rx Instructions: As directed (DME) Dexcom G6 Transmitter Device See Rx Instructions .Route Qty: 1 11RF Rx Instructions: As directed insulin lispro [Humalog KwikPen Insulin] 100 unit/mL insulin pen See Rx Instructions .ROUTE .COMPLEX MDD 50 units Qty: 15 4RF Rx Instructions: sliding scale as directed 1: 7 grams CHO 2:50>150 levothyroxine 150 mcg tablet 150 mcg PO DAILY Qty: 90 0RF Glucagon Emergency Kit (human) 1 MG kit 1 mg IJ DIRECTED Qty: 1 0RF Rx Instructions: use prn severe hypoglycemia. may repeat dose in 15 minutes. call 911 if no response (DME) Keto-Diastix 1 EACH strip 1 ea Miscellaneous DIRECTED Qty: 50 0RF Rx Instructions: use prn to test urine in setting of severe hypoglycemia, call physician if positive test. insulin glargine [Lantus Solostar U-100 Insulin] 100 unit/mL (3 mL) insulin pen 30 unit SUBCUT HS Patient Comments: INJECT 32 UNITS (0.32 ML) SUBCUTANEOUSLY ONCE DAILY Discharge Instructions Additional Instructions: -wet to dry dressing changes daily: -take pain meds 60 mins prior to dressing changes - remove packing - shower. it is ok for water to run into the wound. -repack wound -Keep an ice bag on the incision. 20 minutes on and 20 minutes off. Ice keeps the swelling down and swelling causes pain. Make sure you wrap the ice pack in a towel and don't apply directly to the skin. -No driving for 3 days or of you are taking narcotic pain medications. -Follow-up with Dr. John in 2:45pm in [facility]. [phone] -diet: controlled carbs -no straining to move bowels -pain meds are very constipating: if you do not move your bowels daily take a dose of OTC Miralax at bedtime -You may find that your appetite is smaller. Eat 3-6 small meals throughout the day. It is important to drink lots of water after surgery, 6-10 glasses a day. -If you were given an incentive spirometry (breathing cranberry grower?), continue to do this 10x/hour while awake. -We do want you up walking, at least 5-6 times per day. This is very important to prevent pneumonia and blood clots. You can climb stairs, take them slowly. -No lifting over 5 pounds. -You may find that you are very tired after surgery- this is normal. -please do not smoke for a minimum of 72 hours after surgery. -Packing Supplies gauze ABD or Dena-pads Q tips Take an oxycodone and ativen 1 hour prior to dressing change. Oxycodone WILL make you constipatped! Use Miralax for constipation/avoid staining to move your bowels. ? Pain Management Protocol -Tylenol 1000mg every 6 hours.? Tylenol is an anti-inflammatory. -Ibuprofen 600mg every 6hrs prn pain.? Do not take aspirin while taking this medication.? Take this medication w/ food. Do not take on an empty stomach. -Use ice.? This also helps to keep swelling down *?It is important to take these medications to keep the swelling down.? Swelling is what causes pain. --Skelaxin: muscle relaxant you can take as needed for pain >7. - Do NOT strain to move your bowels!? This is like lifting 50#'s.? Mirlax daily to prevent constipation. All these medications work in concert together?to produce a symphony of pain control.? You need to take them as a TOGETHER in order to control the pain,?NOT just pick and choose which one you want to take.? There is not one thing that completely controls pain.? AND there are multiple factors that produce the sensation of pain- so no one thing is going to control it. So in order to have a symphony of pain control- you need to use ALL of them together. ? WET-to-DRY Dressing Changes ?Your health care provider has covered your wound with a wet-to-dry dressing. With this type of dressing, a wet (or moist) gauze dressing is put on your wound and allowed to dry. Wound drainage and tissue can be removed when you take off the old dressing. Follow any instructions you are given on how to change the dressing. Use this sheet as a reminder. What to Expect at Home Your provider will tell you how often you should change your dressing at home. As the wound heals, you should not need as much gauze or packing gauze. Removing the Old Dressing Follow these steps to remove your dressing: ? Wash your hands thoroughly with soap and warm water before and after each dressing change. Remove the old dressing. If it is sticking to your skin, wet it with warm water to loosen it. ? Remove the gauze pads or packing tape from inside your wound. ? Changing Your Dressing Follow these steps to put a new dressing on: ? Place the gauze pads or packing tape in your wound. Carefully fill in the wound and any spaces under the skin.? Use a cotton tip applicator to gently push the packing material into the wound. ? Cover the wet gauze or packing tape with a large dry dressing pad. Use tape or rolled gauze to hold this dressing in place. ? Wash your hands again when you are finished. When to Call the Doctor Call your doctor if you have any of these changes around your wound: ? Worsening redness ? More pain ? Swelling ? Bleeding ? It is larger or deeper ? It looks dried out or dark ? The drainage is increasing ? The drainage has a bad smell Also call your doctor if: ? Your temperature is 100.5?F (38?C), or higher, for more than 4 hours ? Drainage is coming from or around the wound ? Drainage is not decreasing after 3 to 5 days ? Drainage is increasing ? Drainage becomes thick, andre, yellow, or smells bad ? Stand Alone Forms: Nursing Discharge Form Referrals: Joao Abernathy NP [Primary Care Provider] - 03/03/23 2:20 pm Kaye John DO [OSTEOPATHIC DOCTOR] - 02/27/23 2:30 pm Activity:: see above Equipment/Supplies:: dressing supplies Diet:: Carb Counting Discharge Orders Discharge Orders: Discharge Order (Routine); Ordered 02/24/23 Ordered By: Kaye John Discharge Data Discharge Date/Time-TO BE ENTERED AT DEPARTURE: 02/24/23 14:27 DS: Summary Time Spent with Patient providing and/or coordinating discharge services: Greater than 30 minutes Status at Discharge Functional status at discharge: independent ambulation Overall status at discharge: patient is progressing back to baseline Mental Status: mental status grossly normal Speech and Movement: speech and movement normal Mood: congruent mood Affect: normal affect Exam Psych Mental Status: mental status grossly normal Speech and Movement: speech and movement normal Mood: congruent mood Affect: normal affect DS: Data Vitals/I&O Vitals and I&O: Vital Signs Temperature 36.0 C L 02/24/23 06:35 Temperature Source Tympanic 02/24/23 06:35 Pulse 72 02/24/23 06:35 Pulse Rhythm Regular 02/24/23 07:55 Respiratory Rate 18 02/24/23 06:35 Respiratory Effort Normal, Non-Labored 02/24/23 07:55 Respiratory Depth Normal 02/24/23 07:55 Respiratory Pattern Normal 02/24/23 07:55 Blood Pressure 130/82 02/24/23 06:35 Blood Pressure Mean 58 02/20/23 03:16 Blood Pressure Position Supine 02/19/23 23:20 Pulse Oximetry 96 02/24/23 06:35 Respiratory End-tidal CO2 31 02/20/23 18:27 Oxygen Delivery Method Room Air 02/24/23 06:35 Oxygen Flow Rate 0 02/24/23 06:35 Pain Level 4 02/24/23 06:32 Comment rn notified of low bp 02/21/23 11:08 Intake & Output 02/23/23 02/24/23 02/24/23 23:59 11:59 23:59 Intake Total 860 / 1560 100 / 100 Balance 860 / 1560 100 / 100 Weight 97 kg Intake: IV 200 / 600 100 / 100 Oral 660 / 960 Other: Urine Appearance Clear Clear Data Completed and Pending Labs on day of discharge: Labs from last 24 hours 02/24/23 02/24/23 02/24/23 14:00 06:18 06:18 WBC RBC Hgb Hct MCV MCH MCHC RDW Plt Count MPV Immature Gran % Neutrophils % Lymphocytes % Monocytes % Eosinophils % Basophils % Nucleated RBC % Absolute Neutrophils Absolute Lymphocytes Absolute Monocytes Absolute Eosinophils Absolute Basophils Sodium Potassium Pending Chloride Carbon Dioxide Anion Gap BUN Creatinine Est GFR (CKD-EPI 2020) Glucose Calcium Magnesium 1.8 Total Bilirubin AST ALT Alkaline Phosphatase C-Reactive Protein Total Protein Albumin Add-On Test Request DONE 02/24/23 02/24/23 06:18 06:18 WBC 7.10 RBC 4.08 L Hgb 12.4 L Hct 36.7 L MCV 90 MCH 30.4 MCHC 33.8 RDW 13.0 Plt Count 401 H MPV 9.2 Immature Gran % 0.8 Neutrophils % 59.7 Lymphocytes % 24.1 Monocytes % 9.7 Eosinophils % 4.9 Basophils % 0.8 Nucleated RBC % 0.0 Absolute Neutrophils 4.23 Absolute Lymphocytes 1.71 Absolute Monocytes 0.69 Absolute Eosinophils 0.35 Absolute Basophils 0.06 Sodium 143 Potassium 3.3 L Chloride 106 Carbon Dioxide 32.1 H Anion Gap 4.9 BUN 16 Creatinine 0.8 Est GFR (CKD-EPI 2020) 106.48 Glucose 68 L Calcium 8.6 Magnesium Total Bilirubin 0.2 AST 17 ALT 13 L Alkaline Phosphatase 60 C-Reactive Protein 6.48 H Total Protein 5.5 L Albumin 1.9 L Add-On Test Request Preliminary micro results at discharge 02/20/23 17:35 Wound Culture - Preliminary Perirectal Gram Positive Lucy,Mixed 02/20/23 17:35 Anaerobic Culture - Preliminary Perirectal Anaerobic mixed growth 02/20/23 00:55 Blood Culture - Preliminary Blood NO GROWTH 96 HOURS 02/20/23 00:48 Blood Culture - Preliminary Blood NO GROWTH 96 HOURS PFSH All Active Problems (Updated 02/25/23 @ 00:06 by TANISHA MALDONADO) Scrotal edema (Acute) Retinopathy due to secondary diabetes mellitus (Acute) Perirectal abscess (Acute) Cellulitis (Acute) Hypothyroidism (Chronic) Type 1 diabetes (Chronic) Medical History (Updated 02/25/23 @ 00:06 by TANISHA MALDONADO) Contact dermatitis Diabetic ketoacidosis, type I (09/14/14) DKA (diabetic ketoacidoses) 05/2021- presented with NL blood sugar and high urine keytones HLD (hyperlipidemia) Leukocytosis (09/14/14) Multiple nevi CYNTHIA (obstructive sleep apnea) hasn't been a problem since he lost weight PDR (proliferative diabetic retinopathy) procedure around 1995 for repair Surgical History (Updated 02/21/23 @ 07:43 by Cheyenne Nelson) Status post incision and drainage (~02/2023) perirectal abscess Family History Mother Depression Father No problems noted. Sister No problems noted. Son No problems noted. Son No problems noted. Daughter No problems noted. Maternal Grandfather , 80's No problems noted. Paternal Grandfather , 92 No problems noted. Maternal Grandmother , 80's No problems noted. Paternal Grandmother , 60's No problems noted. Social History Smoking/Tobacco Use Status: Never Second Hand Exposure: No Smoking risk assessment performed?: Yes Alcohol Intake: never Drug use: Never Caregiver/Support person: No Household members: spouse and children Housing: house Communication Needs: None Do you need help understanding health information?: Rarely Pets and animals: Yes Pets and animals: cat(s) Sexually active: Yes Do you think of yourself as: straight/heterosexual Current gender identity: male What is your relationship status?: How often do you talk on the phone with friends or family?: once per week How often do you get together with friends or relatives?: once per week How often do you attend roman catholic or amish services?: 4 or more times per year Do you belong to any clubs or organized social groups?: no Panel score (0-1 are the most socially isolated patients): 2 What type of physical activity do you participate in: walking Duration: < 15 minutes/day Frequency: 3-4 times per week Samia/Jehovah'S Witness: Quaker Special samia needs: No Seatbelt use: always Helmet use: Yes Helmet use: always Drive intox or ride w/intox 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
[2023-02-24 14:22] LABS: Potassium 4.5 mmol/L (3.5-5.1)
== END 2023-02-24 14:27 | disposition home or self-care (01) | DRG 346 ==
LOC: ER 02-20 03:58 → MS 02-20 04:00
PROVIDERS: Internal Medicine; Surgery; Admitting Provider Family Medicine; Emergency Provider Student in an Organized Health Care Education/Training Program; PCP Nurse Practitioner Family; Visit Provider Family Medicine
PROC: 0D9P0ZZ Drainage of Rectum, Open Approach (ICD-10-PCS; CPT 46040; principal; 2023-02-20 15:45)
DX: K61.1 Rectal abscess (principal); E03.9 Hypothyroidism, unspecified; E78.2 Mixed hyperlipidemia; E10.3599 Type 1 diabetes mellitus with proliferative diabetic retinopathy without macular edema, unspecified eye; L25.9 Unspecified contact dermatitis, unspecified cause; D22.9 Melanocytic nevi, unspecified; E10.65 Type 1 diabetes mellitus with hyperglycemia; B95.8 Unspecified staphylococcus as the cause of diseases classified elsewhere; N50.89 Other specified disorders of the male genital organs
CPT/HCPCS: 46040; 10061; 36415; 36416; 80048; 80053; 82962; 84145; 85027; 87040; 87081; 96365; 96367; 96375; 99285; J1650; 72193; 76870; 83036; 83735; 84132; 84443; 85025; 86140; 87070; 87075; 87205; 99223; 99232; J1170; J1885; J2020; J2060; J2250; J2405; J2543; J3010; J3490

== ENCOUNTER 2023-04-07 20:19 | Outpatient (REF) | payer BC, SELFPAY ==
[2023-04-07 20:51] LABS: Calculated LDL 160 mg/dL (<100); Cholesterol 216 mg/dL (<200); HDL Cholesterol 43 mg/dL (40-60); TSH (W/Ref FT4) 15.51 uIU/mL (0.36-3.74); Triglyceride 67 mg/dL (<150)
[2023-04-07 21:08] LABS: FREE T4 0.91 ng/dL (0.76-1.46)
== END 2023-04-07 20:20 | disposition home or self-care (01) ==
LOC: LBN 20:19
PROVIDERS: PCP Nurse Practitioner Family; Visit Provider Nurse Practitioner Family
DX: E78.2 Mixed hyperlipidemia (principal); E03.9 Hypothyroidism, unspecified
CPT/HCPCS: 80061; 84439; 84443

== ENCOUNTER 2023-06-23 03:26 | Outpatient (CLI) | payer BC, SELFPAY ==
[2023-06-23 13:05] LABS: TSH (W/Ref FT4) 68.56 uIU/mL (0.36-3.74)
[2023-06-23 13:43] LABS: FREE T4 1.04 ng/dL (0.76-1.46)
== END 2023-06-23 03:27 | disposition home or self-care (01) ==
LOC: LOS 03:26
PROVIDERS: PCP Nurse Practitioner Family; Visit Provider Nurse Practitioner Family
DX: E03.9 Hypothyroidism, unspecified (principal)
CPT/HCPCS: 36415; 84439; 84443

== ENCOUNTER 2023-08-29 10:40 | Emergency (ER) | payer BC, SELFPAY ==
[2023-08-29] VITALS (16 sets, daily range): BP systolic 135–142; BP diastolic 65–87; PULSE 71–95; RESP 16–18; TEMP 36.4–36.8; O2SAT 93–98
--- NOTE | 2023-08-29 11:09 | W.ED.GENAD ---
Discharge Plan Disposition Patient Disposition: Home Discharge Details Clinical Impression: Nausea & vomiting, Type 1 diabetes Primary Care Provider: Joao Abernathy ED Provider: Ranjit Leon Home Meds and New Rx's Prescriptions: New ondansetron 4 mg tablet,disintegrating 4 mg PO Q8H PRN (Reason: nausea and vomiting) Qty: 10 0RF Continued levothyroxine 150 mcg tablet 150 mcg PO DAILY Qty: 90 4RF (DME) Dexcom G6 Help Desk Representative Misc See Rx Instructions .Route Qty: 1 11RF Rx Instructions: As directed (DME) Dexcom G6 Sensor Device See Rx Instructions .Route Qty: 3 11RF Rx Instructions: As directed (DME) Dexcom G6 Transmitter Device See Rx Instructions .Route Qty: 1 11RF Rx Instructions: As directed insulin lispro [Humalog KwikPen Insulin] 100 unit/mL insulin pen See Rx Instructions .ROUTE .COMPLEX MDD 50 units Qty: 15 4RF Rx Instructions: sliding scale as directed 1: 7 grams CHO 2:50>150 (DME) Keto-Diastix 1 EACH strip 1 ea Miscellaneous DIRECTED Qty: 50 0RF Rx Instructions: use prn to test urine in setting of severe hypoglycemia, call physician if positive test. insulin glargine [Lantus Solostar U-100 Insulin] 100 unit/mL (3 mL) insulin pen 22 unit SUBCUT HS Discharge Instructions Instructions: Acute Nausea and Vomiting (ED) Additional Instructions: Please continue to stay well-hydrated and monitor symptoms. Return to the emergency department for any new or significant worsening of your pain or discomfort, uncontrollable blood sugars, or any further concerns. Please follow-up with your primary care provider for reassessment and to ensure full improvement of symptoms. Referrals: Joao Abernathy, [employer] [Primary Care Provider] - 5 days (For reassessment to ensure you are improving) HPI General Mode of arrival: ambulatory. Date/Time Provider Initiated Documentation: 08/29/23 10:41. Limitations to Documentation: no limitations. Information obtained by: patient and RN notes reviewed. History of Present Illness 53 year old M presents to the emergency department with the chief complaint of Nausea vomiting, high blood sugar, described as mild, Quality is described as aching, and is localized to the abdomen. Patient started experiencing this day(s) (1) and it has been constant. No relieving factors improve symptom(s), No exacerbating factors reported . Patient notes no other symptoms.. Patient did receive the following treatments prior to arrival, other (Insulin) Related Data Home Medications Medication Instructions Recorded Confirmed urine glucose-ketones test #50 strips 15 08/29/23 (Keto-Diastix strips) blood-glucose meter,continuous #1 ea 09/27/21 08/29/23 (Dexcom G6 Help Desk Representative) blood-glucose sensor (Dexcom G6 #3 ea 10/07/22 08/29/23 Sensor device) blood-glucose transmitter (Dexcom #1 ea 10/07/22 08/29/23 G6 Transmitter device) insulin lispro 100 unit/mL See Rx Instructions .Route 11/12/22 08/29/23 subcutaneous pen (Humalog KwikPen .COMPLEX #15 mL (U-100) Insulin) levothyroxine 150 mcg tablet 150 mcg PO DAILY #90 tabs 03/03/23 08/29/23 insulin glargine 100 unit/mL (3 22 unit subcut HS 08/29/23 08/29/23 mL) subcutaneous pen (Lantus Solostar U-100 Insulin) ondansetron 4 mg disintegrating 4 mg PO Q8H PRN nausea and 08/29/23 tablet vomiting #10 tabs Previous Rx's Medication Instructions Recorded urine glucose-ketones test #50 strips 09/16/14 (Keto-Diastix strips) blood-glucose meter,continuous #1 ea 09/27/21 (Dexcom G6 Help Desk Representative) blood-glucose sensor (Dexcom G6 #3 ea 10/07/22 Sensor device) blood-glucose transmitter (Dexcom #1 ea 10/07/22 G6 Transmitter device) insulin lispro 100 unit/mL See Rx Instructions .Route 11/12/22 subcutaneous pen (Humalog KwikPen .COMPLEX #15 mL (U-100) Insulin) levothyroxine 150 mcg tablet 150 mcg PO DAILY #90 tabs 03/03/23 ondansetron 4 mg disintegrating 4 mg PO Q8H PRN nausea and 08/29/23 tablet vomiting #10 tabs Allergies Allergy/AdvReac Type Severity Reaction Status Date / Time No Known Allergies Allergy Verified 07/23/23 09:07 General Stated Complaint: Diabetes ALBAN: 3 Review of Systems Constitutional Constitutional: Denies chills, Denies fever(s) and Reports poor appetite Cardiovascular Cardiovascular: Denies chest pain and Denies dyspnea Respiratory Respiratory: Denies cough and Denies dyspnea Gastrointestinal Gastrointestinal: Reports as per HPI, Reports abdominal pain, Denies melena, Denies change in bowel habits, Denies constipation, Denies diarrhea, Reports nausea and Reports vomiting Genitourinary Genitourinary: Denies hematuria, Denies difficulty urinating, Denies urinary hesitancy, Denies urinary incontinence and Denies urinary urgency Integumentary/Breasts Skin/Breast: Denies rash Exam Const General: cooperative Orientation: alert, awake and oriented x3 Resp Effort & Inspection: normal respiratory effort and able to speak in complete sentences Auscultation: clear to auscultation bilaterally Cardio Rate: regular rate Rhythm: regular rhythm Heart Sounds: S1 normal and S2 normal GI Palpation: soft, no hepatosplenomegaly, not firm, no guarding, no masses, no pulsatile masses, not rigid, no splenomegaly and nontender Auscultation: normal bowel sounds Back/Spine/Pelvis Back: no CVA tenderness Neuro General: patient alert, patient awake, patient oriented x3, gait normal and moves all extremities Course Vital Signs Vital signs: Vital Signs Temperature 36.4 C L 08/29/23 10:47 Pulse 95 H 08/29/23 10:47 Respiratory Rate 16 08/29/23 10:47 Blood Pressure 138/87 08/29/23 10:47 Pulse Oximetry 98 08/29/23 10:47 Temperature 36.4 C L 08/29/23 10:47 Pulse 95 H 08/29/23 10:47 Respiratory Rate 16 08/29/23 10:47 Blood Pressure 138/87 08/29/23 10:47 Blood Pressure Position Sitting 08/29/23 10:47 Pulse Oximetry 98 08/29/23 10:47 Oxygen Delivery Method Room Air 08/29/23 10:47 Oxygen Flow Rate 0 08/29/23 10:47 Pain Level 8 08/29/23 10:47 Medical Decision Making Patient presenting to the emergency department for chief complaint of nausea vomiting. Yesterday he did not feel well and noted slightly high sugars but was able to easily control with his insulin. He did not drink much fluids and had a low appetite and then this morning started having nausea vomiting patient did have slightly elevated glucose this morning again but was also controlled easily with his insulin. Patient denied any injury or trauma, fever or chills, diarrhea, urinary symptoms or other systemic symptoms. Does state he was sick about a week ago for 5 days but then had fully recovered before this started. Patient has history of type 1 diabetes, hypothyroidism, otherwise noncontributory medical history. No history of significant abdominal surgeries. Physical exam shows soft nontender abdomen, normal active bowel sounds, no CVA tenderness, normal cardiac and respiratory exam. Will plan on checking labs including VBG and urinalysis for consideration of DKA but current blood sugar is 181 at triage so not completely consistent with this diagnosis. Pending results will give Zofran and fluids. Reviewed patient's labs and no significant leukocytosis but there is note of slightly elevated neutrophils and low lymphocytes, VBG shows no signs of acidosis and slight elevation of bicarb and slight base excess 5, anion gap is only 11.2, glucose 195, otherwise unremarkable CMP. Urinalysis does show ketones, small amount of bilirubin urobilinogen and glucose which is similar to patient's previous urinalysis. COVID flu and RSV is all negative, patient reassessed after fluids and Zofran and states significant improvement of overall symptoms. Patient has had no further vomiting and does state he feels better. Given this I do not feel that any further workup is needed emergently but will prescribe patient Zofran for home use if needed, encouraged hydration, and low threshold to return for any new or significant worsening of condition. After discussion of diagnosis and plan of care patient has no further needs, questions, or concerns and states clear understanding to return to the emergency department for any worsening symptoms. This documentation was generated using [employer] dictation system, please disregard any oddities of phrase or misspellings. Lab Data Lab results reviewed: Yes I reviewed the patient's lab results. Quality:SDOH Health Related Social Needs: No Data to Display PFSH All Active Problems (Updated 08/29/23 @ 13:08 by Ranjit Leon NP) Nausea & vomiting (Acute) Hypothyroidism (Chronic) Type 1 diabetes (Chronic) Perirectal abscess (Acute) Retinopathy due to secondary diabetes mellitus (Acute) Medical History Scrotal edema Cellulitis Contact dermatitis DKA (diabetic ketoacidoses) 05/2021- presented with NL blood sugar and high urine keytones HLD (hyperlipidemia) CYNTHIA (obstructive sleep apnea) hasn't been a problem since he lost weight PDR (proliferative diabetic retinopathy) procedure around 1995 for repair Multiple nevi Leukocytosis (09/14/14) Diabetic ketoacidosis, type I (09/14/14) Surgical History Status post incision and drainage (~02/2023) perirectal abscess Family History Mother Depression Father No problems noted. Sister No problems noted. Son No problems noted. Son No problems noted. Daughter No problems noted. Maternal Grandfather , 80's No problems noted. Paternal Grandfather , 92 No problems noted. Maternal Grandmother , 80's No problems noted. Paternal Grandmother , 60's No problems noted. Social History Smoking/Tobacco Use Status: Never Second Hand Exposure: No Smoking risk assessment performed?: Yes Alcohol Intake: never Drug use: Never Substance use type: does not use Caregiver/Support person: No Household members: spouse and children Housing: house Communication Needs: None Do you need help understanding health information?: Rarely Pets and animals: Yes Pets and animals: cat(s) Sexually active: Yes Do you think of yourself as: straight/heterosexual Current gender identity: male What is your relationship status?: How often do you talk on the phone with friends or family?: once per week How often do you get together with friends or relatives?: once per week How often do you attend sikh or cheondoism services?: 4 or more times per year Do you belong to any clubs or organized social groups?: no Panel score (0-1 are the most socially isolated patients): 2 What type of physical activity do you participate in: walking Duration: < 15 minutes/day Frequency: 3-4 times per week Samia/Caodaism: Tenriism Special samia needs: No Seatbelt use: always Helmet use: Yes Helmet use: always Drive intox or ride w/intox otr 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
[2023-08-29 11:18] LABS: BE (Venous) 5 mmol/L (-2-3); HCO3 (Venous) 30 mmol/L (23-28); O2 Sat (Venous) 61 %; TCO2 (Venous) 26 mmol/L (24-29); pCO2 (Venous) 48 mmHg (41-51); pO2 (Venous) 33 mmHg
[2023-08-29 11:20] LABS: Abs Immature Grans 0.03 10^3/uL (0.0-0.06); Absolute Basophil Count 0.04 10^3/uL (0.0-0.2); Absolute Eosinophil Count 0.01 10^3/uL (0.0-0.7); Absolute Lymphocyte Count 0.78 10^3/uL (1.2-3.4); Absolute Monocyte Count 0.29 10^3/uL (0.1-0.8); Absolute Neutrophil Count 8.31 10^3/uL (1.2-6.7); Basophils % 0.4; Eosinophils % 0.1; HCT 49.8 % (40.0-50.0); HGB 16.8 g/dL (13.5-17.5); Immature Grans % 0.3; Lymphocytes % 8.2; MCH 29.7 pg (27.0-33.0); MCHC 33.7 % (32.0-36.0); MCV 88 fL (80-95); MPV 9.8 fL (8.0-11.0); Monocytes % 3.1; Neutrophils % 87.9; Platelet Count 295 10^3/uL (130-400); RBC 5.66 10^6/uL (4.36-5.78); RDW 14.1 % (11.8-14.1); RDW-SD 45.5 fL; WBC 9.46 10^3/uL (4.4-10.8)
[2023-08-29] MEDS: Ondansetron 4 MG/2 ML VIAL IVP (11:20)
[2023-08-29] MEDS: Normal Saline 1,000 ML 1000 ML IV (11:20)
[2023-08-29 11:40] LABS: ALT 32 U/L (16-63); AST 20 U/L (15-37); Albumin 3.9 g/dL (3.4-5.0); Alkaline Phosphatase 79 U/L (46-116); Anion Gap 11.2 mmol/L (3-11); BUN 9 mg/dL (7-18); Bilirubin, Total 0.7 mg/dL (0.2-1.0); CO2 27.8 mmol/L (21.0-32.0); CREATININE 1.1 mg/dL (0.70-1.30); Calcium 9.4 mg/dL (8.5-10.1); Chloride 100 mmol/L (98-107); Estimated GFR 80.27 (mL/min/1.73m2); Glucose 195 mg/dL (74-106); Magnesium 1.9 mg/dL (1.8-2.4); Sodium 139 mmol/L (136-145); Total Protein 7.9 g/dL (6.4-8.2)
[2023-08-29 12:08] LABS: COVID-19 PCR Negative (Negative); Influenza A PCR Negative (Negative); Influenza B PCR Negative (Negative); RSV PCR Negative (Negative)
[2023-08-29 12:09] LABS: Source Nasopharynx
[2023-08-29 12:33] LABS: Bilirubin Small (Negative); Blood Negative (Negative); Clarity Clear (Clear); Glucose 500 mg/dL (Negative); Ketones >=160 mg/dL (Negative); Leukocyte Esterase Negative (Negative); Nitrite Negative (Negative)
--- NOTE | 2023-08-29 13:17 | NUR.NOTE ---
Nursing Note: PT needs PCP follow up in one week for nausea, vomiting & diabetes. Annette, ED
== END 2023-08-29 13:14 | disposition home or self-care (01) ==
PROVIDERS: Emergency Provider Nurse Practitioner Family; PCP Nurse Practitioner Family
DX: E10.65 Type 1 diabetes mellitus with hyperglycemia (principal); E10.3599 Type 1 diabetes mellitus with proliferative diabetic retinopathy without macular edema, unspecified eye; Z11.52 Encounter for screening for COVID-19
CPT/HCPCS: 80053; 82805; 87637; 96361; 96374; 99284; 81003; 83735; 85025; J2405

== ENCOUNTER 2023-12-26 22:35 | Outpatient (REF) | payer BC, SELFPAY ==
[2023-12-26 21:34] LABS: TSH (W/Ref FT4) 0.35 uIU/mL (0.36-3.74)
[2023-12-26 21:53] LABS: FREE T4 1.63 ng/dL (0.76-1.46)
== END 2023-12-26 22:36 | disposition home or self-care (01) ==
LOC: LBN 22:35
PROVIDERS: PCP Nurse Practitioner Family; Visit Provider Nurse Practitioner Family
DX: E03.9 Hypothyroidism, unspecified (principal)
CPT/HCPCS: 84439; 84443

== ENCOUNTER 2024-01-09 18:16 | Outpatient (REF) | payer BC, SELFPAY | END 2024-01-09 18:17 | disposition home or self-care (01) | LOC: LBN 18:16 | PROVIDERS: PCP Nurse Practitioner Family; Visit Provider Nurse Practitioner Family | DX: S80.261A Insect bite (nonvenomous), right knee, initial encounter (principal); S80.862A Insect bite (nonvenomous), left lower leg, initial encounter; S80.861A Insect bite (nonvenomous), right lower leg, initial encounter; L98.8 Other specified disorders of the skin and subcutaneous tissue; L29.8 Other pruritus | CPT/HCPCS: 87070; 87205 ==